=== PATIENT | female | born 1985 | race Caucasian/White ===

== ENCOUNTER → 2016-06-07 | Outpatient (CLI) | payer OTHER ==
--- NOTE | 2016-06-07 14:05 | XR ---
Left knee HISTORY: Left knee pain 4 views of the left knee No comparisons Bone mineralization, joint spaces and alignment are maintained. No evident joint effusion. IMPRESSION: No bone abnormalities evident.
== END | disposition home or self-care (01) ==
LOC: RADXRMAIN 11:46
PROVIDERS: ATTEND Psychiatry & Neurology Neurology
DX: M25.562 Pain in left knee (principal)

== ENCOUNTER → 2016-09-17 | Outpatient (CLI) | payer OTHER ==
--- NOTE | 2016-09-17 10:12 | US ---
EXAMINATION TYPE: US renals and bladder DATE OF EXAM: 09/17/2016 8:59 AM COMPARISON: CT abdomen pelvis dated 06 June 2014 CLINICAL HISTORY: R33.8 urinary retention. 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 EXAM MEASUREMENTS: Left Kidney: 11.5 x 6.0 x 5.2 cm Post Void Residual Volume: 11.9 mL The right kidney is atrophic. Cortical medullary differentiation is maintained within the left kidney . Kidney is morphologically normal. Right Kidney: unable to visualize any distinct renal tissue Left Kidney: no evidence of hydronephrosis or mass Bladder: appears wnl Bilateral Jets seen: no Normal Post Void Residual: yes There is no evidence for hydronephrosis at this point in time. No nephrolithiasis is seen. No lala s are identified. The urinary bladder is anechoic. Bilateral ureteral jets are seen. IMPRESSION: Atrophic right kidney. Normal post void residual bladder volume.
== END | disposition home or self-care (01) ==
LOC: RADUSMAIN 08:32
PROVIDERS: ATTEND Urology
DX: N26.1 Atrophy of kidney (terminal) (principal)
CPT/HCPCS: 76770

== ENCOUNTER 2017-04-08 21:23 | Emergency (ER) | payer OTHER ==
[2017-04-08 21:37] VITALS: RESP 18
[2017-04-08] MEDS ORDERED: KETOROLAC 60 MG/2 ML VIAL IM STA (21:54)
[2017-04-08] MEDS ORDERED: PROCHLORPERAZINE 10 MG TAB PO STA (21:54)
[2017-04-08] MEDS ORDERED: diphenhydrAMINE 50 MG CAP PO STA (21:54)
--- NOTE | 2017-04-08 22:00 | ED ---
General Adult HPI - General Chief complaint: ENT Stated complaint: Migraine/Dental Pain Time Seen by Provider: 04/08/17 21:45 Source: patient, RN notes reviewed Mode of arrival: ambulatory Limitations: no limitations - History of Present Illness Initial comments: Patient 31-year-old female who presents emergency room today with multiple complaints. Patient does admit to possible sinus infection. She states her last 2 weeks she's had increased congestion and rhinorrhea. Doesn't pressure in the sinuses patient also admits to a migraine headache has been off and on over the last week. States consistent with migraine headaches that she sat in the past with some photosensitivity and some nausea and vomitig. Patient also admits that over the last few days she's had some increased dental pain over tooth #11 and 12. Patient denies any recent fever, chills, shortness of breath, chest pain, back pain, abdominal pain, nausea or vomiting, numbness or tingling , dysuria or hematuria, constipation or diarrhea, headaches or visual changes, or any other complaints. - Related Data Home Medications Medication Instructions Recorded Confirmed Albuterol Inhaler [Ventolin Hfa 2 puff INHALATION DIRECTED PRN 08/16/1504/08 Inhaler] HYDROcodone/APAP 7.5-325MG [[place] 1 each PO Q8HR PRN 08/16/15 04/08/17 7.5-325] Butalb/APAP/Caff 50-325-40Mg 2 tab PO Q4H PRN 04/08/17 04/08/17 [Fioricet 50-325-40] Gabapentin [Neurontin] 300 mg PO TID 04/08/17 04/08/17 Verapamil HCl [Verapamil ER] 120 mg PO 04/08/17 Previous Rx's Medication Instructions Recorded Amoxicillin/Potassium Clav 1 each PO Q12HR #20 tab 04/08/17 [Augmentin 875-125 Tablet] Fluticasone Propionate [Flonase 1 - 2 spray EA NOSTRIL DAILY 5 04/08/17 Allergy Relief] Days ml Naproxen [Naprosyn] 500 mg PO BID #20 tablet 04/08/17 Allergies Allergy/AdvReac Type Severity Reaction Status Date / Time No Known Allergies Allergy Verified 08/16/15 10:00 Review of Systems ROS Statement: Those systems with pertinent positive or pertinent negative responses have been documented in the HPI. ROS Other: All systems not noted in ROS Statement are negative. Past Medical History Past Medical History: Fibromyalgia, Hyperlipidemia, Osteoarthritis (OA) Additional Past Medical History / Comment(s): MIGRAINES, LOWER BACK, NECK & SHOULDER PAIN-degenerative disk, bulging dis, DERMAL PIERCING LEFT CHEEK. 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) History of Any Multi-Drug Resistant Organisms: None Reported Past Surgical History: Back Surgery, Hernia Repair, Tubal Ligation Additional Past Surgical History / Comment(s): D & C, UMBILICAL HERNIA REPAIR, Past Anesthesia/Blood Transfusion Reactions: Motion Sickness Past Psychological History: Anxiety, Depression Smoking Status: Current every day smoker Past Alcohol Use History: None Reported Past Drug Use History: None Reported - Past Family History Mother Family Medical History: No Reported History General Exam - General Exam Comments Initial Comments: General: The patient is awake and alert, in no distress, and does not appear acutely ill. Eye: Pupils are equal, round and reactive to light, extra-ocular movements are intact. No nystagmus. There is normal conjunctiva bilaterally. No signs of icterus. Ears, nose, mouth and throat: There are moist mucous membranes and no oral lesions. patient does have dental fractures of the gumline of tooth #11 and 12. There appears to be a small abscess forming above the gumline and serial. Locally tender. No fluctuant area to drain. Uvula midline patient swallows without any difficulty. Patient does have tenderness over the maxillary sinuses greater on the left than the right. Neck: The neck is supple, there is no tenderness or JVD. Cardiovascular: There is a regular rate and rhythm. No murmur, rub or gallop is appreciated. Respiratory: Lungs are clear to auscultation, respirations are non-labored, breath sounds are equal. No wheezes, stridor, rales, or rhonchi. Musculoskeletal: Normal ROM, no tenderness. Strength 5/5. Sensation intact. Pulses equal bilaterally 2+. Neurological: A&O x 3. CN II-XII intact, There are no obvious motor or sensory deficits. Coordination appears grossly intact. Speech is normal. Skin: Skin is warm and dry and no rashes or lesions are noted. Psychiatric: Cooperative, appropriate mood & affect, normal judgment. Limitations: no limitations Course Vital Signs 04/08/17 21:33 Temperature 98.7 F Pulse Rate 72 Respiratory 18 Rate Blood Pressure 137/74 O2 Sat by Pulse 98 Oximetry Medical Decision Making - Medical Decision Making options were discussed with patient about IV medications for her migraine. She states she just wants to get out of here as soon as possible. She states she is okay with taking by mouth meds. Patient will be given Compazine, Benadryl and a shot of Toradol for her migraine headache started on antibiotics of Augmentin to cover for her sinusitis along with dental abscess. Advised to follow-up the family doctor and dentist this coming week. Advised return for any other concerns. Disposition Clinical Impression: Acute sinusitis, Migraine, Dental abscess Disposition: HOME SELF-CARE Condition: Good Instructions: Dental Abscess (ED) Additional Instructions: Please use medication as discussed. Please follow-up with dentist/family doctor in the next 2-5 days. Please return to emergency room if the symptoms increase or worsen or for any other concerns. Prescriptions: Amoxicillin/Potassium Clav [Augmentin 875-125 Tablet] 1 each PO Q12HR #20 tab Fluticasone Propionate [Flonase Allergy Relief] 1 - 2 spray EA NOSTRIL DAILY 5 Days ml Naproxen [Naprosyn] 500 mg PO BID #20 tablet Referrals: Jorge Salazar MD [Primary Care Provider] - 1-2 days Time of Disposition: 22:00
[2017-04-08 22:30] VITALS: BP 112/68; PULSE 84; TEMP 98.2
== END 2017-04-08 22:26 | disposition home or self-care (01) ==
LOC: EC 21:23
DX: G43.909 Migraine, unspecified, not intractable, without status migrainosus (principal); J01.90 Acute sinusitis, unspecified; K04.7 Periapical abscess without sinus; M79.7 Fibromyalgia; F17.200 Nicotine dependence, unspecified, uncomplicated; Z79.899 Other long term (current) drug therapy
CPT/HCPCS: 99283; 96372; S0183; J1885

== ENCOUNTER 2017-09-27 15:49 | Inpatient (IN) | payer OTHER ==
[2017-09-27] MEDS ORDERED: ATROPINE SULFATE 0.1 MG/ML 10ML SYRINGE IV STA ×2 (16:18→16:29)
[2017-09-27] MEDS ORDERED: CALCIUM CHLORIDE 100 MG/ML 10 ML SYRINGE IVP STA ×2 (16:18→16:32)
--- NOTE | 2017-09-27 16:22 | ED ---
General Adult HPI - General Chief complaint: Psychiatric Symptoms Stated complaint: Overdose Time Seen by Provider: 09/27/17 16:08 Source: patient, RN notes reviewed Mode of arrival: wheelchair Limitations: no limitations - History of Present Illness Initial comments: Patient is a 31-year-old female presenting to the emergency department during overdose. Patient does admit to taking 20-30 of her verapamil. Patient took 20 or less of her gabapentin. Patient may have also taken a few of her muscle relaxers. Patient is drowsy and admits to feeling drowsy. Patient admits to self harm and suicide attempt. Patient denies alcohol or other street drugs. Patient does have a previous history of depression. Patient denies any physical complaints at this time. Patient is drowsy and provides limited history. - Related Data Home Medications Medication Instructions Recorded Confirmed Albuterol Inhaler [Ventolin Hfa 2 puff INHALATION RT-Q6H PRN 08/16/15 04/08/17 Inhaler] HYDROcodone/APAP 7.5-325MG [[place] 1 tab PO Q8HR PRN 08/16/15 04/08/17 7.5-325] ALPRAZolam [Xanax] 1 mg PO DAILY PRN 04/08/17 04/08/17 Butalb/APAP/Caff 50-325-40Mg 2 tab PO Q4H PRN 04/08/17 04/08/17 [Fioricet 50-325-40] Citalopram Hydrobromide 20 mg PO DAILY 04/08/17 04/08/17 [Citalopram HBr] Gabapentin [Neurontin] 300 mg PO TID 04/08/17 04/08/17 Verapamil HCl [Verapamil ER] 120 mg PO DAILY 04/08/17 04/08/17 Previous Rx's Medication Instructions Recorded Amoxicillin/Potassium Clav 1 each PO Q12HR #20 tab 04/08/17 [Augmentin 875-125 Tablet] Fluticasone Propionate [Flonase 1 - 2 spray EA NOSTRIL DAILY 5 04/08/17 Allergy Relief] Days ml Naproxen [Naprosyn] 500 mg PO BID #20 tablet 04/08/17 Allergies Allergy/AdvReac Type Severity Reaction Status Date / Time No Known Allergies Allergy Verified 09/27/17 15:57 Review of Systems ROS Statement: Those systems with pertinent positive or pertinent negative responses have been documented in the HPI. ROS Other: All systems not noted in ROS Statement are negative. Constitutional: Denies: fever Eyes: Denies: eye pain ENT: Denies: ear pain Respiratory: Denies: cough Cardiovascular: Denies: chest pain Endocrine: Denies: fatigue Gastrointestinal: Denies: abdominal pain Genitourinary: Denies: dysuria Musculoskeletal: Denies: back pain Skin: Denies: rash Neurological: Denies: headache Psychiatric: Reports: depression, suicidal thoughts Past Medical History Past Medical History: Fibromyalgia, Hyperlipidemia, Osteoarthritis (OA) Additional Past Medical History / Comment(s): MIGRAINES, LOWER BACK, NECK & SHOULDER PAIN-degenerative disk, bulging dis, DERMAL PIERCING LEFT CHEEK. 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) History of Any Multi-Drug Resistant Organisms: None Reported Past Surgical History: Back Surgery, Hernia Repair, Tubal Ligation Additional Past Surgical History / Comment(s): D & C, UMBILICAL HERNIA REPAIR, Past Anesthesia/Blood Transfusion Reactions: Motion Sickness Past Psychological History: Anxiety, Depression Smoking Status: Current every day smoker Past Alcohol Use History: None Reported Past Drug Use History: None Reported - Past Family History Mother Family Medical History: No Reported History General Exam Limitations: no limitations General appearance: other (Drowsy but arousable to voice) Head exam: Present: atraumatic Eye exam: Present: normal appearance, PERRL ENT exam: Present: normal oropharynx Neck exam: Present: normal inspection Respiratory exam: Present: normal lung sounds bilaterally Cardiovascular Exam: Present: bradycardia GI/Abdominal exam: Present: soft. Absent: tenderness Extremities exam: Present: normal inspection Neurological exam: Present: alert. Absent: motor sensory deficit Psychiatric exam: Present: depressed Skin exam: Present: normal color Course Vital Signs 09/27/17 09/27/17 09/27/17 15:54 16:53 17:35 Temperature 98.1 F Pulse Rate 53 L 71 56 L Respiratory 18 12 18 Rate Blood Pressure 138/100 156/100 114/75 O2 Sat by Pulse 100 100 93 L Oximetry - Reevaluation(s) Reevaluation #1: 09/27/17 16:37 Patient has had heart rate go as low as 38. Poison control was contacted who does agree with high-dose insulin therapy. This has been initiated. 05/19/18 17:12 Patient became more drowsy and no gag present. Patient transferred to room 19 and intubated. 09/27/17 17:43 Vital signs stable. Case was discussed with Dr. dc, who will admit for hospital call. He does request cardiology consult and this will be placed. Case also discussed with Dr. Hyatt, who will consult for critical care. Procedures - Intubation Time Out Performed: Yes Sedative: Versed Paralytic: Succinylcholine Mg Given: 80 Laryngoscope: Duarte Size: 3 ET Tube Size: 7.5 Tube Placement Confirmation: visualized tube passing through cords, equal breath sounds bilaterally, confirmation by capnometry Patient Tolerated Procedure: well, no complications Medical Decision Making - Lab Data Result diagrams: 09/27/17 16:10 09/27/17 16:10 Lab Results 09/27/17 09/27/17 09/27/17 Range/Units 16:10 16:10 16:10 WBC 6.9 (3.8-10.6) k/uL RBC 4.20 (3.80-5.40) m/uL Hgb 13.1 (11.4-16.0) gm/dL Hct 38.8 (34.0-46.0) % MCV 92.3 (80.0-100.0) fL MCH 31.2 (25.0-35.0) pg MCHC 33.8 (31.0-37.0) g/dL RDW 13.0 (11.5-15.5) % Plt Count 259 (150-450) k/uL Neutrophils % 60 % Lymphocytes % 31 % Monocytes % 6 % Eosinophils % 1 % Basophils % 0 % Neutrophils # 4.1 (1.3-7.7) k/uL Lymphocytes # 2.1 (1.0-4.8) k/uL Monocytes # 0.4 (0-1.0) k/uL Eosinophils # 0.1 (0-0.7) k/uL Basophils # 0.0 (0-0.2) k/uL PT (9.0-12.0) sec INR (<1.2) Sample Site ABG pH (7.35-7.45) ABG pCO2 (35-45) mmHg ABG pO2 (83-108) mmHg ABG HCO3 (21-25) mmol/L ABG Total CO2 (19-24) mmol/L ABG O2 Saturation (94-97) % ABG Base Excess mmol/L Alejandro Test FiO2 % Sodium 143 (137-145) mmol/L Potassium 4.1 (3.5-5.1) mmol/L Chloride 106 (98-107) mmol/L Carbon Dioxide 24 (22-30) mmol/L Anion Gap 13 mmol/L BUN 12 (7-17) mg/dL Creatinine 0.99 (0.52-1.04) mg/dL Est GFR (CKD-EPI)AfAm 87 (>60 ml/min/1.73 sqM) Est GFR (CKD-EPI)NonAf 75 (>60 ml/min/1.73 sqM) Glucose 163 H (74-99) mg/dL POC Glucose (mg/dL) (75-99) mg/dL POC Glu Director Employment ID Calcium 9.7 (8.4-10.2) mg/dL Total Bilirubin 0.4 (0.2-1.3) mg/dL AST 23 (14-36) U/L ALT 27 (9-52) U/L Alkaline Phosphatase 49 (38-126) U/L Total Creatine Kinase 44 (30-135) U/L CK-MB (CK-2) <0.2 (0.0-2.4) ng/mL CK-MB (CK-2) Rel Index Troponin I <0.012 (0.000-0.034) ng/mL Total Protein 7.0 (6.3-8.2) g/dL Albumin 4.4 (3.5-5.0) g/dL Salicylates <1.0 mg/dL Acetaminophen <10.0 ug/mL Serum Alcohol <10 mg/dL 09/27/17 09/27/17 09/27/17 Range/Units 16:10 16:23 16:50 WBC (3.8-10.6) k/uL RBC (3.80-5.40) m/uL Hgb (11.4-16.0) gm/dL Hct (34.0-46.0) % MCV (80.0-100.0) fL MCH (25.0-35.0) pg MCHC (31.0-37.0) g/dL RDW (11.5-15.5) % Plt Count (150-450) k/uL Neutrophils % % Lymphocytes % % Monocytes % % Eosinophils % % Basophils % % Neutrophils # (1.3-7.7) k/uL Lymphocytes # (1.0-4.8) k/uL Monocytes # (0-1.0) k/uL Eosinophils # (0-0.7) k/uL Basophils # (0-0.2) k/uL PT 10.1 (9.0-12.0) sec INR 1.0 (<1.2) Sample Site Left Radial ABG pH 7.38 (7.35-7.45) ABG pCO2 41 (35-45) mmHg ABG pO2 336 H (83-108) mmHg ABG HCO3 24 (21-25) mmol/L ABG Total CO2 25 H (19-24) mmol/L ABG O2 Saturation 99.5 H (94-97) % ABG Base Excess -1.2 mmol/L Alejandro Test Yes FiO2 100 % Sodium (137-145) mmol/L Potassium (3.5-5.1) mmol/L Chloride (98-107) mmol/L Carbon Dioxide (22-30) mmol/L Anion Gap mmol/L BUN (7-17) mg/dL Creatinine (0.52-1.04) mg/dL Est GFR (CKD-EPI)AfAm (>60 ml/min/1.73 sqM) Est GFR (CKD-EPI)NonAf (>60 ml/min/1.73 sqM) Glucose (74-99) mg/dL POC Glucose (mg/dL) 155 H (75-99) mg/dL POC Glu Director Employment ID [employer], Anisha Calcium (8.4-10.2) mg/dL Total Bilirubin (0.2-1.3) mg/dL AST (14-36) U/L ALT (9-52) U/L Alkaline Phosphatase (38-126) U/L Total Creatine Kinase (30-135) U/L CK-MB (CK-2) (0.0-2.4) ng/mL CK-MB (CK-2) Rel Index Troponin I (0.000-0.034) ng/mL Total Protein (6.3-8.2) g/dL Albumin (3.5-5.0) g/dL Salicylates mg/dL Acetaminophen ug/mL Serum Alcohol mg/dL 09/27/17 Range/Units 17:04 WBC (3.8-10.6) k/uL RBC (3.80-5.40) m/uL Hgb (11.4-16.0) gm/dL Hct (34.0-46.0) % MCV (80.0-100.0) fL MCH (25.0-35.0) pg MCHC (31.0-37.0) g/dL RDW (11.5-15.5) % Plt Count (150-450) k/uL Neutrophils % % Lymphocytes % % Monocytes % % Eosinophils % % Basophils % % Neutrophils # (1.3-7.7) k/uL Lymphocytes # (1.0-4.8) k/uL Monocytes # (0-1.0) k/uL Eosinophils # (0-0.7) k/uL Basophils # (0-0.2) k/uL PT (9.0-12.0) sec INR (<1.2) Sample Site ABG pH (7.35-7.45) ABG pCO2 (35-45) mmHg ABG pO2 (83-108) mmHg ABG HCO3 (21-25) mmol/L ABG Total CO2 (19-24) mmol/L ABG O2 Saturation (94-97) % ABG Base Excess mmol/L Alejandro Test FiO2 % Sodium (137-145) mmol/L Potassium (3.5-5.1) mmol/L Chloride (98-107) mmol/L Carbon Dioxide (22-30) mmol/L Anion Gap mmol/L BUN (7-17) mg/dL Creatinine (0.52-1.04) mg/dL Est GFR (CKD-EPI)AfAm (>60 ml/min/1.73 sqM) Est GFR (CKD-EPI)NonAf (>60 ml/min/1.73 sqM) Glucose (74-99) mg/dL POC Glucose (mg/dL) 272 H (75-99) mg/dL POC Glu Director Employment ID Jessica, Anisha Calcium (8.4-10.2) mg/dL Total Bilirubin (0.2-1.3) mg/dL AST (14-36) U/L ALT (9-52) U/L Alkaline Phosphatase (38-126) U/L Total Creatine Kinase (30-135) U/L CK-MB (CK-2) (0.0-2.4) ng/mL CK-MB (CK-2) Rel Index Troponin I (0.000-0.034) ng/mL Total Protein (6.3-8.2) g/dL Albumin (3.5-5.0) g/dL Salicylates mg/dL Acetaminophen ug/mL Serum Alcohol mg/dL Critical Care Time Critical Care Time: Yes Total Critical Care Time: 45 Disposition Clinical Impression: Calcium channel ranjana overdose, Suicidal ideation, Overdose Disposition: ADMITTED IP TO THIS [facility] Condition: Critical Is patient prescribed a controlled substance at d/c from ED?: No Referrals: None,Stated [Primary Care Provider] - 1-2 days Decision Time: 17:43
[2017-09-27 16:26] LABS: Glucose,Whole Blood 155 mg/dL (75-99)
[2017-09-27] MEDS ORDERED: GLUCAGON 1 MG/ML VIAL IVP STA ×2 (16:29)
[2017-09-27 16:31] LABS: Basophils % (A) 0 %; Eosinophils # (A) 0.1 k/uL (0-0.7); Eosinophils % (A) 1 %; HCT 38.8 % (34.0-46.0); HGB 13.1 gm/dL (11.4-16.0); Lymphocytes # (A) 2.1 k/uL (1.0-4.8); Lymphocytes % (A) 31 %; MCH 31.2 pg (25.0-35.0); MCHC 33.8 g/dL (31.0-37.0); MCV 92.3 fL (80.0-100.0); Mean Platelet Volume 8.9; Monocytes # (A) 0.4 k/uL (0-1.0); Monocytes % (A) 6 %; Neutrophils # (A) 4.1 k/uL (1.3-7.7); Neutrophils % (A) 60 %; Platelet Count 259 k/uL (150-450); WBC 6.9 k/uL (3.8-10.6)
[2017-09-27] MEDS ORDERED: INSULIN REGULAR 100 UNIT/ML VIAL IV ONE ×3 (16:32→22:37)
[2017-09-27] MEDS ORDERED: MIDAZOLAM (PF) 1 MG/ML 5 ML VIAL IV STA (16:33)
[2017-09-27] MEDS ORDERED: SUCCINYLCHOLINE CHLORIDE VIAL 200 MG/10 ML VIAL IV STA (16:33)
[2017-09-27 16:37] LABS: Prothrombin Time 10.1 sec (9.0-12.0)
[2017-09-27 16:45] LABS: ALT 27 U/L (9-52); AST 23 U/L (14-36); Acetaminophen <10.0 ug/mL; Albumin 4.4 g/dL (3.5-5.0); Alcohol <10 mg/dL; Alkaline Phosphatase 49 U/L (38-126); Anion Gap 13 mmol/L; Blood Urea Nitrogen 12 mg/dL (7-17); Calcium 9.7 mg/dL (8.4-10.2); Carbon Dioxide 24 mmol/L (22-30); Chloride 106 mmol/L (98-107); Creatine Kinase 44 U/L (30-135); Glucose 163 mg/dL (74-99); Potassium 4.1 mmol/L (3.5-5.1); Salicylate <1.0 mg/dL; Sodium 143 mmol/L (137-145); Total Bilirubin 0.4 mg/dL (0.2-1.3)
[2017-09-27] MEDS ORDERED: DEXTROSE 10% IN WATER 1,000 ML IV SCH (16:45)
[2017-09-27] MEDS ORDERED: INSULIN REGULAR 100 UNIT in SODIUM CHLORIDE 0.9% 100 ML IV SCH (16:45)
[2017-09-27] MEDS: DEXTROSE 50%-WATER 50 ML SYRINGE IVP STA ×2 (16:46→18:04)
[2017-09-27 16:53] LABS: ABG Base Excess -1.2 mmol/L; ABG HCO3 24 mmol/L (21-25); ABG Oxygen Saturation 99.5 % (94-97); ABG PCO2 41 mmHg (35-45); ABG PH 7.38 (7.35-7.45); ABG PO2 336 mmHg (83-108); ABG TCO2 25 mmol/L (19-24)
[2017-09-27 16:56] LABS: Creatine Kinase MB <0.2 ng/mL (0.0-2.4); Troponin I <0.012 ng/mL (0.000-0.034)
[2017-09-27] MEDS ORDERED: PROPOFOL 1,000 MG in EMPTY BAG 1 BAG IV ONE (17:16)
[2017-09-27] MEDS ORDERED: LORazepam 2 MG/ML INJ IV PRN ×2 (17:20)
[2017-09-27 17:24] LABS: Glucose,Whole Blood 272 mg/dL (75-99)
[2017-09-27] MEDS: PROPOFOL 1,000 MG in EMPTY BAG 1 BAG IV SCH ×2 (17:26→23:30)
[2017-09-27] MEDS ORDERED: NALOXONE 0.4 MG/ML 1 ML VIAL IV PRN ×2 (17:47→20:26)
[2017-09-27 17:50] LABS: Glucose,Whole Blood 162 mg/dL (75-99)
[2017-09-27 17:56] LABS: Amphetamine Screen,Urine Not Detected (NotDetected); Barbiturate Screen,Urine Detected (NotDetected); Benzodiazepines Screen,Urine Not Detected (NotDetected); Cocaine Screen,Urine Not Detected (NotDetected); Methadone Screen, Urine Not Detected (NotDetected); Opiate Screen,Urine Not Detected (NotDetected); Oxycodone Screen, Urine Not Detected (NotDetected); Phencyclidine Screen,Urine Not Detected (NotDetected); Tricyclic Antidepressant,Urine Not Detected (NotDetected); Urn Cannabinoid Scrn Not Detected (NotDetected)
[2017-09-27] MEDS ORDERED: LORazepam 2 MG/ML INJ IV STA (17:58)
--- NOTE | 2017-09-27 18:01 | ED ---
Medical Decision Making - Lab Data Result diagrams: 09/27/17 16:10 09/27/17 16:10 Lab Results 09/27/17 09/27/17 09/27/17 Range/Units 16:10 16:10 16:10 WBC 6.9 (3.8-10.6) k/uL RBC 4.20 (3.80-5.40) m/uL Hgb 13.1 (11.4-16.0) gm/dL Hct 38.8 (34.0-46.0) % MCV 92.3 (80.0-100.0) fL MCH 31.2 (25.0-35.0) pg MCHC 33.8 (31.0-37.0) g/dL RDW 13.0 (11.5-15.5) % Plt Count 259 (150-450) k/uL Neutrophils % 60 % Lymphocytes % 31 % Monocytes % 6 % Eosinophils % 1 % Basophils % 0 % Neutrophils # 4.1 (1.3-7.7) k/uL Lymphocytes # 2.1 (1.0-4.8) k/uL Monocytes # 0.4 (0-1.0) k/uL Eosinophils # 0.1 (0-0.7) k/uL Basophils # 0.0 (0-0.2) k/uL PT (9.0-12.0) sec INR (<1.2) Sample Site ABG pH (7.35-7.45) ABG pCO2 (35-45) mmHg ABG pO2 (83-108) mmHg ABG HCO3 (21-25) mmol/L ABG Total CO2 (19-24) mmol/L ABG O2 Saturation (94-97) % ABG Base Excess mmol/L Alejandro Test FiO2 % Sodium 143 (137-145) mmol/L Potassium 4.1 (3.5-5.1) mmol/L Chloride 106 (98-107) mmol/L Carbon Dioxide 24 (22-30) mmol/L Anion Gap 13 mmol/L BUN 12 (7-17) mg/dL Creatinine 0.99 (0.52-1.04) mg/dL Est GFR (CKD-EPI)AfAm 87 (>60 ml/min/1.73 sqM) Est GFR (CKD-EPI)NonAf 75 (>60 ml/min/1.73 sqM) Glucose 163 H (74-99) mg/dL POC Glucose (mg/dL) (75-99) mg/dL POC Glu Instructor Physical ID Calcium 9.7 (8.4-10.2) mg/dL Total Bilirubin 0.4 (0.2-1.3) mg/dL AST 23 (14-36) U/L ALT 27 (9-52) U/L Alkaline Phosphatase 49 (38-126) U/L Total Creatine Kinase 44 (30-135) U/L CK-MB (CK-2) <0.2 (0.0-2.4) ng/mL CK-MB (CK-2) Rel Index Troponin I <0.012 (0.000-0.034) ng/mL Total Protein 7.0 (6.3-8.2) g/dL Albumin 4.4 (3.5-5.0) g/dL Urine HCG, Qual (Not Detectd) Salicylates <1.0 mg/dL Acetaminophen <10.0 ug/mL Serum Alcohol <10 mg/dL 09/27/17 09/27/17 09/27/17 Range/Units 16:10 16:23 16:50 WBC (3.8-10.6) k/uL RBC (3.80-5.40) m/uL Hgb (11.4-16.0) gm/dL Hct (34.0-46.0) % MCV (80.0-100.0) fL MCH (25.0-35.0) pg MCHC (31.0-37.0) g/dL RDW (11.5-15.5) % Plt Count (150-450) k/uL Neutrophils % % Lymphocytes % % Monocytes % % Eosinophils % % Basophils % % Neutrophils # (1.3-7.7) k/uL Lymphocytes # (1.0-4.8) k/uL Monocytes # (0-1.0) k/uL Eosinophils # (0-0.7) k/uL Basophils # (0-0.2) k/uL PT 10.1 (9.0-12.0) sec INR 1.0 (<1.2) Sample Site Left Radial ABG pH 7.38 (7.35-7.45) ABG pCO2 41 (35-45) mmHg ABG pO2 336 H (83-108) mmHg ABG HCO3 24 (21-25) mmol/L ABG Total CO2 25 H (19-24) mmol/L ABG O2 Saturation 99.5 H (94-97) % ABG Base Excess -1.2 mmol/L Alejandro Test Yes FiO2 100 % Sodium (137-145) mmol/L Potassium (3.5-5.1) mmol/L Chloride (98-107) mmol/L Carbon Dioxide (22-30) mmol/L Anion Gap mmol/L BUN (7-17) mg/dL Creatinine (0.52-1.04) mg/dL Est GFR (CKD-EPI)AfAm (>60 ml/min/1.73 sqM) Est GFR (CKD-EPI)NonAf (>60 ml/min/1.73 sqM) Glucose (74-99) mg/dL POC Glucose (mg/dL) 155 H (75-99) mg/dL POC Glu Instructor Physical ID [facility] Anisha Calcium (8.4-10.2) mg/dL Total Bilirubin (0.2-1.3) mg/dL AST (14-36) U/L ALT (9-52) U/L Alkaline Phosphatase (38-126) U/L Total Creatine Kinase (30-135) U/L CK-MB (CK-2) (0.0-2.4) ng/mL CK-MB (CK-2) Rel Index Troponin I (0.000-0.034) ng/mL Total Protein (6.3-8.2) g/dL Albumin (3.5-5.0) g/dL Urine HCG, Qual (Not Detectd) Salicylates mg/dL Acetaminophen ug/mL Serum Alcohol mg/dL 09/27/17 09/27/17 09/27/17 Range/Units 17:04 17:18 17:30 WBC (3.8-10.6) k/uL RBC (3.80-5.40) m/uL Hgb (11.4-16.0) gm/dL Hct (34.0-46.0) % MCV (80.0-100.0) fL MCH (25.0-35.0) pg MCHC (31.0-37.0) g/dL RDW (11.5-15.5) % Plt Count (150-450) k/uL Neutrophils % % Lymphocytes % % Monocytes % % Eosinophils % % Basophils % % Neutrophils # (1.3-7.7) k/uL Lymphocytes # (1.0-4.8) k/uL Monocytes # (0-1.0) k/uL Eosinophils # (0-0.7) k/uL Basophils # (0-0.2) k/uL PT (9.0-12.0) sec INR (<1.2) Sample Site ABG pH (7.35-7.45) ABG pCO2 (35-45) mmHg ABG pO2 (83-108) mmHg ABG HCO3 (21-25) mmol/L ABG Total CO2 (19-24) mmol/L ABG O2 Saturation (94-97) % ABG Base Excess mmol/L Alejandro Test FiO2 % Sodium (137-145) mmol/L Potassium (3.5-5.1) mmol/L Chloride (98-107) mmol/L Carbon Dioxide (22-30) mmol/L Anion Gap mmol/L BUN (7-17) mg/dL Creatinine (0.52-1.04) mg/dL Est GFR (CKD-EPI)AfAm (>60 ml/min/1.73 sqM) Est GFR (CKD-EPI)NonAf (>60 ml/min/1.73 sqM) Glucose (74-99) mg/dL POC Glucose (mg/dL) 272 H 162 H (75-99) mg/dL POC Glu Instructor Physical ID Jessica, Rd Wong Calcium (8.4-10.2) mg/dL Total Bilirubin (0.2-1.3) mg/dL AST (14-36) U/L ALT (9-52) U/L Alkaline Phosphatase (38-126) U/L Total Creatine Kinase (30-135) U/L CK-MB (CK-2) (0.0-2.4) ng/mL CK-MB (CK-2) Rel Index Troponin I (0.000-0.034) ng/mL Total Protein (6.3-8.2) g/dL Albumin (3.5-5.0) g/dL Urine HCG, Qual Not Detected (Not Detectd) Salicylates mg/dL Acetaminophen ug/mL Serum Alcohol mg/dL - Radiology Data Interpreted by me: Chest x-ray shows good endotracheal tube placement. Otherwise no acute abnormality. Disposition Clinical Impression: Calcium channel ranjana overdose, Suicidal ideation, Overdose Disposition: ADMITTED IP TO THIS [facility] Condition: Critical Referrals: None,Stated [Primary Care Provider] - 1-2 days Procedures - Restraint - Face to Face Restraint Occurrence 1 Patient's Immediate Situation: Endangers self safety Patient's Reaction to the Intervention: Appropriate Patient's Medical & Behavioral Condition: Drowsy Need to Continue or Terminate Restraint or Seclusion: Continue Face to Face Eval of Restraint Date: 09/27/17 Face to Face Eval of Restraint Time: 18:00
--- NOTE | 2017-09-27 18:10 | XR ---
EXAMINATION TYPE: XR chest 1V portable DATE OF EXAM: 09/27/2017 COMPARISON: Prior chest x-ray 03/08/2015 HISTORY: Intubated TECHNIQUE: Single frontal view of the chest is obtained. FINDINGS: Patient is rotated. There are overlying cardiac leads. Endotracheal tube is been placed in the interval and is overlying the tracheal air column. NG tube shows the distal tip at the level of t he hemidiaphragm. There is no focal air space opacity, pleural effusion, or pneumothorax seen. The c ardiac silhouette size is within normal limits. The osseous structures are intact. IMPRESSION: Interval intubation. Side-port of the NG tube is above the level of the gastroesophageal junction.
[2017-09-27 18:24] LABS: Glucose,Whole Blood 98 mg/dL (75-99)
[2017-09-27 18:24] LABS: Glucose,Whole Blood 62 mg/dL (75-99)
[2017-09-27 18:38] LABS: Glucose,Whole Blood 51 mg/dL (75-99)
[2017-09-27] MEDS ORDERED: DEXTROSE 50%-WATER 50 ML SYRINGE IVP STA ×2 (18:40→19:40)
[2017-09-27 18:56] LABS: Glucose,Whole Blood 180 mg/dL (75-99)
[2017-09-27 19:03] LABS: Glucose,Whole Blood 138 mg/dL (75-99)
[2017-09-27 19:22] LABS: Glucose,Whole Blood 89 mg/dL (75-99)
[2017-09-27 19:30] LABS: Glucose,Whole Blood 82 mg/dL (75-99)
[2017-09-27] MEDS ORDERED: DOPamine DRIP 800 MG in DEXTROSE/WATER 1 500ML.BAG IV SCH (19:30)
[2017-09-27 19:47] LABS: Glucose,Whole Blood 80 mg/dL (75-99)
[2017-09-27] MEDS: SODIUM CHLORIDE 0.9% IV SCH (19:55)
[2017-09-27] MEDS: INSULIN REGULAR IV SCH (19:55)
[2017-09-27 20:11] LABS: Glucose,Whole Blood 70 mg/dL (75-99)
[2017-09-27] MEDS ORDERED: WATER FOR INJECTION IV SCH (20:15)
[2017-09-27] MEDS ORDERED: WATER IV SCH (20:15)
[2017-09-27] MEDS ORDERED: STERILE IV SCH (20:15)
[2017-09-27] MEDS ORDERED: DEXTROSE 50% IV SCH (20:15)
[2017-09-27 20:17] LABS: Glucose,Whole Blood 323 mg/dL (75-99)
[2017-09-27 20:33] LABS: Glucose,Whole Blood 246 mg/dL (75-99)
[2017-09-27 20:47] LABS: Glucose,Whole Blood 208 mg/dL (75-99)
[2017-09-27 21:03] LABS: Glucose,Whole Blood 184 mg/dL (75-99)
[2017-09-27] MEDS: CHLORHEXIDINE GLUCONATE 15 ML CUP MUCOUS MEM SCH (21:04)
[2017-09-27 21:30] LABS: Glucose,Whole Blood 119 mg/dL (75-99)
[2017-09-27] MEDS ORDERED: SODIUM CHLORIDE 0.9% 1,000 ML IV ONE (21:40)
[2017-09-27 22:03] LABS: Glucose,Whole Blood 106 mg/dL (75-99)
[2017-09-27 22:03] LABS: Glucose,Whole Blood 106 mg/dL (75-99)
[2017-09-27 22:49] LABS: Glucose,Whole Blood 86 mg/dL (75-99)
[2017-09-27 22:49] LABS: Glucose,Whole Blood 93 mg/dL (75-99)
[2017-09-27] MEDS ORDERED: Magnesium Replacement Protocol 1 EACH MISC MISCELLANE PRN (22:53)
[2017-09-27] MEDS: STERILE IV SCH ×2 (22:55)
[2017-09-27] MEDS: WATER FOR INJECTION IV SCH ×2 (22:55)
[2017-09-27] MEDS: [UNRECOGNIZED DRUG - OTHER] IV SCH ×2 (22:55)
[2017-09-27] MEDS: MAGNESIUM SULFATE-D5W PMX 1 GM in DEXTROSE/WATER 1 100ML.BAG IVPB SCH ×2 (22:59→23:19)
[2017-09-27] MEDS ORDERED: NOREPINEPHRIN 4 MG-0.9% NS PMX 4 MG/250 ML ML IV SCH (23:00)
[2017-09-27 23:03] LABS: Glucose,Whole Blood 108 mg/dL (75-99)
[2017-09-27 23:29] LABS: Glucose,Whole Blood 164 mg/dL (75-99)
--- NOTE | 2017-09-28 00:01 | HP ---
HISTORY AND PHYSICAL DATE OF ADMISSION: 09/27/2017. DATE OF SERVICE: 09/27/2017 PRESENTING COMPLAINT: Overdose. HISTORY OF PRESENTING COMPLAINT: This is a 31-year-old patient. History is obtained through the ER physician and the nurse in the ICU. The patient presented to the ER following an overdose. The patient apparently had taken 20-30 mg of verapamil extended release, about 20 or so, on top of Neurontin, gabapentin and few of her muscle relaxers. The patient was drowsy in the ER. The patient did admit to self-harm and suicide attempt. The patient denies any alcohol or street drugs, has a known history of depression. The patient became more lethargic in the ER and had to be intubated. The patient is currently in the ICU. The patient's heart rate was in the 40s, was given 2 doses of atropine in the ER and then put on a dopamine drip. Per the Poison Control, patient also put on insulin drip 1 mg/kg and a dextrose drip. The patient also received 2 units of calcium chloride in the ER and is also on propofol. Currently on the ventilator with FiO2 50 and a PEEP of 5. The patient's other chronic stable medical conditions reported were fibromyalgia, hyperlipidemia, some osteoarthritis and a unilateral kidney, anxiety, depression. REVIEW OF SYSTEMS: Patient intubated. PAST MEDICAL HISTORY: Fibromyalgia, hyperlipidemia, lumbar osteoarthritis, unilateral kidney, anxiety, depression. PAST SURGICAL HISTORY: Back surgery, hernia repair, tubal ligation, umbilical hernia repair. SOCIAL HISTORY: I was told she has 7 children, smokes about half a pack a day for 15 years. No alcohol. FAMILY HISTORY: Cannot obtain. Patient intubated. HOME MEDICATIONS: 1. Possibly verapamil ER 120 mg a day. 2. Naproxen 500 mg b.i.d. 3. Bowman 7.5 one tab q.8h p.r.n. 4. Neurontin 300 mg t.i.d. 5. Flonase. 6. Celexa 20 mg daily. 7. Fioricet 2 tablets q.4 p.r.n. 8. Augmentin 875 one tablet q.12. 9. Ventolin HFA 2 puffs every 6 hours p.r.n. 10.Xanax 1 mg p.o. daily p.r.n. ALLERGIES: None. EXAMINATION: Afebrile, pulse 56, respirations 18, blood pressure 104/67, pulse ox 98%. GENERAL APPEARANCE: Average build, lying in bed, intubated. EYES: Pupils equal. Conjunctivae are normal. HEENT: External nose and ears normal. Endotracheal tube in place. NECK: JVD unable to assess. Mass not palpable. RESPIRATORY: Effort normal. Lungs are clear. CARDIOVASCULAR: First and second sounds normal. No edema. ABDOMEN: Soft, nontender. Liver and spleen not palpable. LYMPHATIC: No lymph node palpable in neck or axillae. PSYCHIATRY: Unable to assess. NEUROLOGICAL: Pupils are equal, . Plantars are downgoing. The patient is spontaneously moving about. INVESTIGATIONS: White count 6.9, hemoglobin 13.1. Blood gas showed pH of 7.38. Potassium 4.1, BUN and creatinine are normal. Troponin negative. Serum alcohol less than 10. Acetaminophen less than 10. Salicylate less than 0 1. Urine HCG negative. ASSESSMENT: 1. Acute overdose of at least 20-30 verapamil, Neurontin, muscle relaxant. 2. Severe bradycardia from calcium channel blockers with bigeminy. 3. Unilateral kidney. 4. Anxiety and depression, not otherwise specified. 5. Suicide attempt. 6. Acute metabolic encephalopathy from above. 7. Acute respiratory failure from central respiratory depression from medications requiring ventilator assistance. PLAN: Patient is on the ventilator on propofol, dopamine drip, insulin drip, D25 per Poison Control. Consultation to Psychiatry under critical care was done. supervisor fur floor worker will be involved. A close eye will be kept. MMODL / IJN: [id number] /
[2017-09-28 00:03] LABS: Glucose,Whole Blood 158 mg/dL (75-99)
[2017-09-28 00:31] LABS: Glucose,Whole Blood 190 mg/dL (75-99)
[2017-09-28 00:58] LABS: Glucose,Whole Blood 157 mg/dL (75-99)
[2017-09-28 01:37] LABS: Glucose,Whole Blood 197 mg/dL (75-99)
[2017-09-28 02:05] LABS: Glucose,Whole Blood 166 mg/dL (75-99)
[2017-09-28 02:05] LABS: Appearance,Urine Clear (Clear); Bilirubin,Urine Negative (Negative); Blood,Urine Negative (Negative); Color,Urine Colorless; Glucose,Urine (UA) Negative (Negative); Ketones,Urine Negative (Negative); Leukocyte Esterase,Urine Negative (Negative); Nitrite,Urine Negative (Negative); Protein,Urine Negative (Negative); Specific Gravity,Urine 1.002 (1.001-1.035); Urobilinogen,Urine <2.0 mg/dL (<2.0)
[2017-09-28] MEDS: STERILE IV SCH ×8 (02:25→22:38)
[2017-09-28] MEDS: [UNRECOGNIZED DRUG - OTHER] IV SCH ×2 (02:25)
[2017-09-28] MEDS: WATER FOR INJECTION IV SCH ×8 (02:25→22:38)
[2017-09-28 02:30] LABS: Glucose,Whole Blood 182 mg/dL (75-99)
[2017-09-28 03:01] LABS: Glucose,Whole Blood 244 mg/dL (75-99)
[2017-09-28] MEDS: DEXTROSE 50% IV SCH ×6 (03:25→22:38)
[2017-09-28] MEDS: WATER IV SCH ×6 (03:25→22:38)
[2017-09-28 03:37] LABS: Glucose,Whole Blood 232 mg/dL (75-99)
[2017-09-28 04:20] LABS: Glucose,Whole Blood 245 mg/dL (75-99)
[2017-09-28 04:38] LABS: Glucose,Whole Blood 206 mg/dL (75-99)
[2017-09-28 05:22] LABS: Glucose,Whole Blood 220 mg/dL (75-99)
[2017-09-28] MEDS: SODIUM CHLORIDE 0.9% IV SCH ×3 (05:28→17:04)
[2017-09-28] MEDS: INSULIN REGULAR IV SCH ×3 (05:28→17:04)
[2017-09-28 05:59] LABS: Glucose,Whole Blood 155 mg/dL (75-99)
[2017-09-28 06:17] LABS: Glucose,Whole Blood 142 mg/dL (75-99)
[2017-09-28 06:30] LABS: Glucose,Whole Blood 130 mg/dL (75-99)
[2017-09-28 06:49] LABS: Glucose,Whole Blood 127 mg/dL (75-99)
[2017-09-28 06:56] LABS: Basophils % (A) 0 %; Eosinophils % (A) 0 %; HCT 36.8 % (34.0-46.0); Lymphocytes % (A) 9 %; MCHC 32.5 g/dL (31.0-37.0); MCV 95.2 fL (80.0-100.0); Mean Platelet Volume 8.4; Monocytes # (A) 0.6 k/uL (0-1.0); Monocytes % (A) 6 %; Neutrophils % (A) 84 %; Platelet Count 200 k/uL (150-450); RBC 3.86 m/uL (3.80-5.40); RDW 12.9 % (11.5-15.5); WBC 10.7 k/uL (3.8-10.6)
[2017-09-28 06:59] LABS: Glucose,Whole Blood 134 mg/dL (75-99)
[2017-09-28 07:13] LABS: ALT 23 U/L (9-52); AST 15 U/L (14-36); Albumin 3.3 g/dL (3.5-5.0); Alkaline Phosphatase 45 U/L (38-126); Anion Gap 12 mmol/L; Blood Urea Nitrogen 9 mg/dL (7-17); Calcium 10.6 mg/dL (8.4-10.2); Carbon Dioxide 18 mmol/L (22-30); Chloride 116 mmol/L (98-107); Glucose 133 mg/dL (74-99); Magnesium 1.9 mg/dL (1.6-2.3); Sodium 146 mmol/L (137-145); Total Bilirubin 0.2 mg/dL (0.2-1.3); Total Protein 5.7 g/dL (6.3-8.2)
[2017-09-28 07:18] LABS: Potassium 2.7 mmol/L (3.5-5.1)
[2017-09-28 07:19] LABS: Phosphorus 0.6 mg/dL (2.5-4.5)
[2017-09-28 07:36] LABS: Ionized Calcium 6.4 mg/dL (4.5-5.3)
--- NOTE | 2017-09-28 07:40 | XR ---
EXAMINATION TYPE: XR chest 1V portable DATE OF EXAM: 09/28/2017 COMPARISON: Prior chest x-ray 09/27/2017 HISTORY: Intubated TECHNIQUE: Single frontal view of the chest is obtained. FINDINGS: Endotracheal tube, NG tube are overlying appropriate positions, the NG tube has been advan desiree slightly, side-port remains above the level of the gastroesophageal junction. There is no evident pneumothorax or pleural effusion. Overlying cardiac leads are present. Patchy basilar density suspec jenniffer in the left lower lobe. Heart size is stable. IMPRESSION: NG tube has been repositioned however the side port remains above the level of the gastr oesophageal junction. Probable left lower lobe atelectasis. Correlate to exclude pneumonia. Follow-up recommended.
[2017-09-28 07:43] LABS: Glucose,Whole Blood 135 mg/dL (75-99)
[2017-09-28 07:52] LABS: ABG Base Excess -6.5 mmol/L; ABG HCO3 19 mmol/L (21-25); ABG Oxygen Saturation 98.6 % (94-97); ABG PCO2 35 mmHg (35-45); ABG PH 7.34 (7.35-7.45); ABG PO2 149 mmHg (83-108); ABG TCO2 20 mmol/L (19-24)
[2017-09-28 08:09] LABS: Glucose,Whole Blood 122 mg/dL (75-99)
[2017-09-28] MEDS ORDERED: Potassium Replacement Protocol 1 EACH MISC MISCELLANE PRN (08:21)
[2017-09-28] MEDS ORDERED: Phosphorus Replacement Protoco 1 EACH MISC MISCELLANE PRN (08:21)
[2017-09-28] MEDS ORDERED: Magnesium Replacement Protocol 1 EACH MISC MISCELLANE PRN (08:22)
--- NOTE | 2017-09-28 08:26 | P.CRDCN ---
History of Present Illness Consult date: 09/28/17 History of present illness: This is a 31-year-old female with history of hypertension being treated with verapamil and also chronic pain being managed by neurology apparently is admitted to the emergency room with the goal dose. Patient has taken 20 and so tablets of the verapamil extended along with Neurontin gabapentin another muscle relaxants. Patient will need intubation in the emergency room. She was also found to be bradycardic. She was given atropine and dopamine. Patient started having frequent PVCs. Dopamine was discontinued. Patient was put on Levophed. Her blood pressure has been running about 9 0 to 100 systolic. Heart rate has improved to about 70. Patient is alert and following commands. His possible that patient may be extubated today. Her first troponin is within normal limits. Patient has been having problems with electrolytes, including potassium and magnesium levels and phosphorus and calcium levels. These are being corrected. From cardiac standpoint I will get an echocardiogram. Patient is also on insulin and dextrose strips. Further recommendations depend upon clinical course. Review of Systems Not obtained Past Medical History Past Medical History: Fibromyalgia, Hyperlipidemia, Osteoarthritis (OA) Additional Past Medical History / Comment(s): MIGRAINES, LOWER BACK, NECK & SHOULDER PAIN-degenerative disk, bulging dis, DERMAL PIERCING LEFT CHEEK. 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) History of Any Multi-Drug Resistant Organisms: None Reported Past Surgical History: Back Surgery, Hernia Repair, Tubal Ligation Additional Past Surgical History / Comment(s): D & C, UMBILICAL HERNIA REPAIR, Past Anesthesia/Blood Transfusion Reactions: Motion Sickness Past Psychological History: Anxiety, Depression Smoking Status: Current every day smoker Past Alcohol Use History: None Reported Past Drug Use History: None Reported - Past Family History Mother Family Medical History: No Reported History Medications and Allergies Home Medications Medication Instructions Recorded Confirmed Type Albuterol Inhaler [Ventolin Hfa 2 puff INHALATION RT-Q6H PRN 08/16/15 04/08/17 History Inhaler] HYDROcodone/APAP 7.5-325MG [[place] 1 tab PO Q8HR PRN 08/16/15 04/08/17 History 7.5-325] ALPRAZolam [Xanax] 1 mg PO DAILY PRN 04/08/17 04/08/17 History Amoxicillin/Potassium Clav 1 each PO Q12HR #20 tab 04/08/17 Rx [Augmentin 875-125 Tablet] Butalb/APAP/Caff 50-325-40Mg 2 tab PO Q4H PRN 04/08/17 04/08/17 History [Fioricet 50-325-40] Citalopram Hydrobromide 20 mg PO DAILY 04/08/17 04/08/17 History [Citalopram HBr] Fluticasone Propionate [Flonase 1 - 2 spray EA NOSTRIL DAILY 5 04/08/17 Rx Allergy Relief] Days ml Gabapentin [Neurontin] 300 mg PO TID 04/08/17 04/08/17 History Naproxen [Naprosyn] 500 mg PO BID #20 tablet 04/08/17 Rx Verapamil HCl [Verapamil ER] 120 mg PO DAILY 04/08/17 04/08/17 History Allergies Allergy/AdvReac Type Severity Reaction Status Date / Time No Known Allergies Allergy Verified 09/27/17 15:57 Physical Exam Vitals: Vital Signs Temp Pulse Pulse Resp BP BP Pulse Ox 09/28/17 07:00 72 19 99/50 100 09/28/17 06:30 71 20 87/45 100 09/28/17 06:00 68 20 92/52 99 09/28/17 05:30 64 15 84/38 100 09/28/17 05:00 70 24 94/55 100 09/28/17 04:30 65 18 95/62 100 09/28/17 04:00 98.5 F 63 17 91/47 100 09/28/17 03:30 63 16 94/51 100 09/28/17 03:00 58 L 12 96/47 100 09/28/17 02:30 60 12 104/63 100 09/28/17 02:00 71 13 106/74 100 09/28/17 01:30 61 13 120/70 100 09/28/17 01:00 66 18 107/63 100 09/28/17 00:30 54 L 16 83/46 100 09/28/17 00:00 97.9 F 47 L 14 83/45 100 09/27/17 23:30 52 L 12 92/49 100 09/27/17 23:07 59 L 18 80/35 100 09/27/17 23:00 59 L 14 67/48 100 09/27/17 22:30 81 17 78/36 100 18 22:00 72 15 87/43 98 09/27/18 21:30 82 18 76/39 100 18 21:00 67 14 100/60 100 18 20:30 53 L 12 80/44 100 18 20:00 45 L 15 82/48 100 18 19:30 45 L 12 84/51 100 18 19:00 47 L 12 89/50 100 18 18:38 97.8 F 59 L 15 100 18 18:19 51 L 19 93/54 99 18 18:06 56 L 19 95/55 99 18 17:55 52 L 18 98/55 100 18 17:50 68 17 102/55 97 18 17:40 56 L 18 104/67 98 18 17:35 56 L 18 114/75 93 L 18 17:25 98.7 F 50 L 15 114/75 100 18 17:15 86 10 L 134/79 94 L 18 17:10 86 10 L 131/84 95 18 17:05 66 0 L 123/78 97 18 17:00 72 10 L 130/80 95 18 16:55 76 10 L 156/100 100 18 16:53 71 12 156/100 100 18 16:45 78 14 174/112 100 18 16:40 74 14 181/110 100 18 16:30 42 L 12 128/82 100 18 16:25 46 L 12 155/95 100 18 16:20 66 14 173/116 100 18 16:18 34 L 14 120/77 100 18 16:10 42 L 14 119/85 99 18 15:54 98.1 F 53 L 18 138/100 100 Intake and Output 18 0520/18 18 22:59 06:59 14:59 Intake Total 9314.025 3363.113 135 Output Total 550 1550 225 Balance 873.278 343.113 -90 Intake: IV 1346.06 1620.35 135 .9 KVO 30 90 10 DOPamine DRIP 800 mg In 16.06 5.35 Dextrose/Water 1 500ml. bag @ 2.5 MCG/KG/MIN 5.35 mls/hr IV .Q24H [facility] Rx#: [id number] Dextrose 10% in Water 1, 100 000 ml @ 100 mls/hr IV . Q10H [facility] Rx#:[id number] Dextrose 50%-Water Vial 200 200 250 ml In Empty Bag 1 bag In Water For Injection, Sterile 250 ml @ As Directed IV CONTINUOUS [facility] Rx#:[id number] Sodium Chloride 0.9% 1, 1000 000 ml @ 999 mls/hr IV . Q1H1M [facility] Rx#:[id number] Water For Injection, 1325 125 Sterile 250 ml Empty Bag 1 bag @ Per Protocol IV . Q0M [facility] with Dextrose 50% -Water Vial 250 ml Rx#: [id number] Intake, IV Titration 77.218 272.763 Amount DOPamine DRIP 800 mg In 20.528 Dextrose/Water 1 500ml. bag @ 2.5 MCG/KG/MIN 5.35 mls/hr IV .Q24H [facility] Rx#: [id number] Insulin Regular 300 unit 53.876 49.124 In Sodium Chloride 0.9% 100 ml @ 30 UNIT/HR 10.3 mls/hr IV .Q10H [facility] Rx#: [id number] Norepinephrin 4 mg-0.9% 75.625 Ns Pmx 4 mg In 250 ml @ Titrate IV .Q0M [facility] Rx#: [id number] Propofol 1,000 mg In 0.057 Empty Bag 1 bag @ Titrate IV .Q0M [facility] Rx#: [id number] Propofol 1,000 mg In 2.757 148.014 Empty Bag 1 bag @ Titrate IV .Q0M [facility] Rx#: [id number] Output: Urine 550 1550 225 Other: Voiding Method Indwelling Catheter Indwelling Catheter Weight 57.153 kg 61.4 kg GENERAL EXAM: Patient is alert and intubated HEENT: Normocephalic. Normal reaction of pupils, equal size, normal range of extraocular motion. No erythema or exudates in the throat. NECK: No masses, no nuchal rigidity. CHEST: No chest wall deformity. LUNGS: Equal air entry with no crackles or wheeze. HEART: S1 and S2 normal ABDOMEN: Soft. SKIN: No rashes CENTRAL NERVOUS SYSTEM: Intubated. However response to verbal stimuli EXTREMITIES: No cyanosis, clubbing or edema. Results 09/28/17 06:09 09/28/17 06:09 Cardiac Enzymes 09/27/17 09/27/17 09/28/17 Range/Units 16:10 16:10 06:09 AST 23 15 (14-36) U/L CK-MB (CK-2) <0.2 (0.0-2.4) ng/mL Troponin I <0.012 (0.000-0.034) ng/mL Coagulation 09/27/17 Range/Units 16:10 PT 10.1 (9.0-12.0) sec CBC 09/27/17 09/28/17 Range/Units 16:10 06:09 WBC 6.9 10.7 H (3.8-10.6) k/uL RBC 4.20 3.86 (3.80-5.40) m/uL Hgb 13.1 12.0 (11.4-16.0) gm/dL Hct 38.8 36.8 (34.0-46.0) % Plt Count 259 200 (150-450) k/uL Comprehensive Metabolic Panel 09/27/17 09/28/17 Range/Units 16:10 06:09 Sodium 143 146 H (137-145) mmol/L Potassium 4.1 2.7 L* (3.5-5.1) mmol/L Chloride 106 116 H (98-107) mmol/L Carbon Dioxide 24 18 L (22-30) mmol/L BUN 12 9 (7-17) mg/dL Creatinine 0.99 0.90 (0.52-1.04) mg/dL Glucose 163 H 133 H (74-99) mg/dL Calcium 9.7 10.6 H (8.4-10.2) mg/dL AST 23 15 (14-36) U/L ALT 27 23 (9-52) U/L Alkaline Phosphatase 49 45 (38-126) U/L Total Protein 7.0 5.7 L (6.3-8.2) g/dL Albumin 4.4 3.3 L (3.5-5.0) g/dL Current Medications Generic Name Dose Route Start Last Admin Trade Name Freq PRN Reason Stop Dose Admin Chlorhexidine Gluconate 15 ml 09/27/17 21:00 09/27/17 21:04 Peridex MUCOUS MEM 15 ml BID [facility] Administration Enoxaparin Sodium 40 mg 09/28/17 09:00 Lovenox SQ DAILY [facility] Propofol 1,000 mg/ IV Solution 100 mls @ 0 mls/hr 09/27/17 17:30 09/28/17 06: 24 IV 29.85 mcg/kg/min .Q0M [facility] 11 mls/hr Protocol Titration Titrate Insulin Human Regular 300 unit 103 mls @ 10.3 mls/hr 09/27/17 19:30 09/28/17 05:28 / Sodium Chloride IV 59 unit/hr .Q10H [facility] 20.25 mls/hr Protocol Administration 30 UNIT/HR Norepinephrine Bitartrate 4 mg in 250 mls @ 0 mls/hr 09/27/17 23:00 09/28/17 06:46 Levophed-0.9% Nacl 4 Mg/250ml Pmx IV 5 mcg/min .Q0M [facility] 18.75 mls/hr Protocol Titration Titrate Dextrose/Water 250 ml/ IV 500 mls @ 125 mls/hr 09/28/17 03:17 09/28/17 05:30 Solution/ Sterile Water IV 100 mls/hr CONTINUOUS [facility] Administration Protocol Lorazepam 2 mg 09/27/17 17:20 09/27/17 17:32 Ativan IV 2 mg Q1HR PRN Administration Severe Agitation Lorazepam 1 mg 09/27/17 17:20 Ativan IV Q1HR PRN Mild Agitation Miscellaneous Information 1 each 09/27/17 22:53 Magnesium Per Protocol MISCELLANE DAILY PRN Per Protocol Protocol Naloxone HCl 0.2 mg 09/27/17 17:47 Narcan IV Q2M PRN Opioid Reversal Pantoprazole Sodium 40 mg 09/28/17 09:00 Protonix IV DAILY [facility] Intake and Output 09/27/17 09/28/17 09/28/17 22:59 06:59 14:59 Intake Total 6386.155 4537.113 135 Output Total 550 1550 225 Balance 873.278 343.113 -90 Intake: IV 1346.06 1620.35 135 .9 KVO 30 90 10 DOPamine DRIP 800 mg In 16.06 5.35 Dextrose/Water 1 500ml. bag @ 2.5 MCG/KG/MIN 5.35 mls/hr IV .Q24H [facility] Rx#: [id number] Dextrose 10% in Water 1, 100 000 ml @ 100 mls/hr IV . Q10H [facility] Rx#:[id number] Dextrose 50%-Water Vial 200 200 250 ml In Empty Bag 1 bag In Water For Injection, Sterile 250 ml @ As Directed IV CONTINUOUS [facility] Rx#:[id number] Sodium Chloride 0.9% 1, 1000 000 ml @ 999 mls/hr IV . Q1H1M [facility] Rx#:[id number] Water For Injection, 1325 125 Sterile 250 ml Empty Bag 1 bag @ Per Protocol IV . Q0M [facility] with Dextrose 50% -Water Vial 250 ml Rx#: [id number] Intake, IV Titration 77.218 272.763 Amount DOPamine DRIP 800 mg In 20.528 Dextrose/Water 1 500ml. bag @ 2.5 MCG/KG/MIN 5.35 mls/hr IV .Q24H [facility] Rx#: [id number] Insulin Regular 300 unit 53.876 49.124 In Sodium Chloride 0.9% 100 ml @ 30 UNIT/HR 10.3 mls/hr IV .Q10H [facility] Rx#: [id number] Norepinephrin 4 mg-0.9% 75.625 Ns Pmx 4 mg In 250 ml @ Titrate IV .Q0M [facility] Rx#: [id number] Propofol 1,000 mg In 0.057 Empty Bag 1 bag @ Titrate IV .Q0M [facility] Rx#: [id number] Propofol 1,000 mg In 2.757 148.014 Empty Bag 1 bag @ Titrate IV .Q0M [facility] Rx#: [id number] Output: Urine 550 1550 225 Other: Voiding Method Indwelling Catheter Indwelling Catheter Weight 57.153 kg 61.4 kg 09/28/17 06:09 09/28/17 06:09 EKG Interpretations (text) Initial EKG showed sinus rhythm with PACs. Today's. He EKG showed sinus rhythm , nonspecific changes Assessment and Plan (1) History of hypertension Current Visit: Yes Status: Acute Code(s): Z86.79 - PERSONAL HISTORY OF OTHER DISEASES OF THE CIRCULATORY SYSTEM SNOMED Code(s): 968922087 (2) Calcium channel ranjana overdose Current Visit: Yes Status: Acute Code(s): T46.1X1A - POISONING BY CALCIUM- CHANNEL BLOCKERS, ACCIDENTAL, INIT SNOMED Code(s): 506784635 (3) Suicidal ideation Current Visit: Yes Status: Acute Code(s): R45.851 - SUICIDAL IDEATIONS SNOMED Code(s): 5886045 Plan: Continue current management. Possible extubation. We'll get an echocardiogram to assess LV function.
[2017-09-28 08:32] LABS: Glucose,Whole Blood 133 mg/dL (75-99)
[2017-09-28] MEDS: PROPOFOL 1,000 MG in EMPTY BAG 1 BAG IV SCH ×3 (08:54→23:01)
[2017-09-28] MEDS ORDERED: POTASSIUM CHLORIDE 10 MEQ in WATER FOR INJECTION 1 100ML.BAG IVPB SCH ×2 (09:00→09:30)
[2017-09-28 09:04] LABS: Glucose,Whole Blood 127 mg/dL (75-99)
[2017-09-28] MEDS: MAGNESIUM SULFATE-D5W PMX 1 GM in DEXTROSE/WATER 1 100ML.BAG IVPB SCH ×2 (09:13→14:12)
[2017-09-28] MEDS: PANTOPRAZOLE 40 MG/10 ML VIAL IV SCH (09:20)
[2017-09-28] MEDS: CHLORHEXIDINE GLUCONATE 15 ML CUP MUCOUS MEM SCH ×2 (09:20→22:00)
[2017-09-28] MEDS: ENOXAPARIN 40 MG/0.4 ML SYRINGE SQ SCH (09:20)
[2017-09-28 09:36] LABS: Glucose,Whole Blood 138 mg/dL (75-99)
[2017-09-28 10:03] LABS: Glucose,Whole Blood 133 mg/dL (75-99)
[2017-09-28 10:29] LABS: Glucose,Whole Blood 153 mg/dL (75-99)
[2017-09-28] MEDS ORDERED: POTASSIUM CHLORIDE 20 MEQ in SODIUM CHLORIDE 0.9% 100 ML IVPB SCH (10:30)
[2017-09-28] MEDS: POTASSIUM PHOSPHATE 10 MMOL in SODIUM CHLORIDE 0.9% 250 ML IV SCH ×3 (10:32→18:42)
[2017-09-28 10:59] LABS: Glucose,Whole Blood 144 mg/dL (75-99)
[2017-09-28 11:32] LABS: Glucose,Whole Blood 150 mg/dL (75-99)
[2017-09-28 12:08] LABS: Glucose,Whole Blood 157 mg/dL (75-99)
[2017-09-28 12:36] LABS: Glucose,Whole Blood 135 mg/dL (75-99)
[2017-09-28 13:06] LABS: Glucose,Whole Blood 142 mg/dL (75-99)
[2017-09-28 13:32] LABS: Glucose,Whole Blood 125 mg/dL (75-99)
[2017-09-28 14:06] LABS: Glucose,Whole Blood 155 mg/dL (75-99)
[2017-09-28 14:36] LABS: Glucose,Whole Blood 145 mg/dL (75-99)
[2017-09-28 15:05] LABS: Glucose,Whole Blood 162 mg/dL (75-99)
[2017-09-28 15:38] LABS: Glucose,Whole Blood 151 mg/dL (75-99)
[2017-09-28 16:04] LABS: Glucose,Whole Blood 150 mg/dL (75-99)
[2017-09-28 16:31] LABS: Glucose,Whole Blood 140 mg/dL (75-99)
--- NOTE | 2017-09-28 16:40 | P.CNPUL ---
History of Present Illness Consult date: 09/28/17 Requesting physician: Forest Lee Reason for consult: other (Acute hypoxic respiratory failure secondary to multiple drug overdose including verapamil and gabapentin.) Chief complaint: Overdose History of present illness: This is a 31-year-old female with history of depression, previous suicidal attempts in the past, patient admitted to the ER physician that she wanted to commit suicide, and she took 20-30 verapamil tablets, and she took about 20 gabapentin tablets. She may have also taken muscle relaxants. In the ER the patient was noted to be extremely drowsy, and she was noted to have profound bradycardia with heart rate as low as 38. Poison control was notified, and the recommendation was to start the patient on high insulin infusion protocol. She was also given glucagon, patient was admitted to the ICU on high insulin infusion protocol, along with D50 protocol, it was initially D10. Presently the patient is on 1 unit per kilo per hour of insulin. And the sugars are monitored every hour on the hour, and the protocol is being followed as recommended by poison control. Patient is known to have history of chronic pain syndrome, she has history of fibromyalgia, initially she was given atropine and dopamine, however later on last night patient was placed on 5 g of levo fed. And dopamine was discontinued. The levo fed was started when we were maximized on insulin drip. As per protocol. I saw this patient this morning, reviewed her chest x-ray, ABG, all her labs, and recommended that we continue on propofol drip, Levophed drip, and insulin drip as per protocol. ABG this morning showed a pO2 of 149 pCO2 of 35 pH of 7.34. Potassium 3.4. Hyperchloremic metabolic acidosis non-anion gap was noted. Potassium was low phosphorus was low and they were both corrected as per protocol. Patient is sedated, and not much history could be obtained from the patient. But she was noted to be arousable but gets extremely agitated once aroused. And asking for the tube to be pulled out. Review of Systems ROS unobtainable: due to endotracheal tube Past Medical History Past Medical History: Fibromyalgia, Hyperlipidemia, Osteoarthritis (OA) Additional Past Medical History / Comment(s): MIGRAINES, LOWER BACK, NECK & SHOULDER PAIN-degenerative disk, bulging dis, DERMAL PIERCING LEFT CHEEK. 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) History of Any Multi-Drug Resistant Organisms: None Reported Past Surgical History: Back Surgery, Hernia Repair, Tubal Ligation Additional Past Surgical History / Comment(s): D & C, UMBILICAL HERNIA REPAIR, Past Anesthesia/Blood Transfusion Reactions: Motion Sickness Past Psychological History: Anxiety, Depression Smoking Status: Current every day smoker Past Alcohol Use History: None Reported Past Drug Use History: None Reported - Past Family History Mother Family Medical History: No Reported History Medications and Allergies Home Medications Medication Instructions Recorded Confirmed Type Citalopram Hydrobromide 20 mg PO DAILY 04/08/17 09/28/17 History [Citalopram HBr] Gabapentin [Neurontin] 300 mg PO TID 04/08/17 09/28/17 History Verapamil HCl [Verapamil ER] 120 mg PO DAILY 04/08/17 09/28/17 History tiZANidine [Zanaflex] 4 mg PO TID PRN 09/28/17 09/28/17 History valACYclovir [Valtrex] 500 mg PO BID 09/28/17 09/28/17 History Allergies Allergy/AdvReac Type Severity Reaction Status Date / Time No Known Allergies Allergy Verified 09/27/17 15:57 Physical Exam Vitals: Vital Signs Temp Pulse Pulse Resp BP BP Pulse Ox 09/28/17 16:00 102.0 F H 106 H 21 116/62 100 09/28/17 15:45 112 H 20 114/69 100 09/28/17 15:30 99 16 111/63 100 09/28/17 15:15 107 H 24 115/68 100 09/28/17 15:09 102.8 F H 09/28/17 15:00 101 H 16 115/62 100 09/28/17 14:45 97 15 116/63 100 09/28/17 14:30 95 16 116/62 100 09/28/17 14:15 92 12 119/67 100 09/28/17 14:00 104 H 15 118/59 100 09/28/17 13:45 87 14 135/63 100 09/28/17 13:30 90 22 110/62 100 09/28/17 13:15 76 20 103/53 100 09/28/17 13:00 79 24 110/56 100 09/28/17 12:45 79 17 110/57 100 05/20/18 12:30 80 12 106/56 100 05/20/18 12:15 83 17 104/55 100 05/20/18 12:00 98.2 F 87 18 107/51 100 05/20/18 11:45 79 20 101/52 100 05/20/18 11:30 80 19 99/50 100 05/20/18 11:15 74 22 95/45 100 05/20/18 11:00 75 17 97/45 100 05/20/18 10:45 77 18 98/48 100 05/20/18 10:30 75 20 101/47 100 05/20/18 10:15 73 21 105/48 100 05/20/18 10:00 82 19 96/45 100 05/20/18 09:45 80 19 114/72 100 05/20/18 09:30 91 43 H 91/42 99 05/20/18 09:15 72 17 103/41 100 05/20/18 09:00 69 19 96/59 100 05/20/18 08:45 76 22 96/59 100 05/20/18 08:30 69 21 87/48 100 05/20/18 08:15 74 20 96/53 100 05/20/18 08:00 98.1 F 68 19 94/44 100 05/20/18 07:00 72 19 99/50 100 05/20/18 06:30 71 20 87/45 100 05/20/18 06:00 68 20 92/52 99 05/20/18 05:30 64 15 84/38 100 05/20/18 05:00 70 24 94/55 100 05/20/18 04:30 65 18 95/62 100 05/20/18 04:00 98.5 F 63 17 91/47 100 05/20/18 03:30 63 16 94/51 100 05/20/18 03:00 58 L 12 96/47 100 05/20/18 02:30 60 12 104/63 100 05/20/18 02:00 71 13 106/74 100 05/20/18 01:30 61 13 120/70 100 05/20/18 01:00 66 18 107/63 100 05/20/18 00:30 54 L 16 83/46 100 05/20/18 00:00 97.9 F 47 L 14 83/45 100 05/19/18 23:30 52 L 12 92/49 100 05/19/18 23:07 59 L 18 80/35 100 18 23:00 59 L 14 67/48 100 18 22:30 81 17 78/36 100 18 22:00 72 15 87/43 98 18 21:30 82 18 76/39 100 18 21:00 67 14 100/60 100 09/27/17 20:30 53 L 12 80/44 100 18 20:00 45 L 15 82/48 100 18 19:30 45 L 12 84/51 100 09/27/17 19:00 47 L 12 89/50 100 09/27/17 18:38 97.8 F 59 L 15 100 09/27/17 18:19 51 L 19 93/54 99 09/27/17 18:06 56 L 19 95/55 99 09/27/17 17:55 52 L 18 98/55 100 09/27/17 17:50 68 17 102/55 97 09/27/17 17:40 56 L 18 104/67 98 09/27/17 17:35 56 L 18 114/75 93 L 09/27/17 17:25 98.7 F 50 L 15 114/75 100 09/27/17 17:15 86 10 L 134/79 94 L 09/27/17 17:10 86 10 L 131/84 95 09/27/17 17:05 66 0 L 123/78 97 09/27/17 17:00 72 10 L 130/80 95 09/27/17 16:55 76 10 L 156/100 100 09/27/17 16:53 71 12 156/100 100 09/27/17 16:45 78 14 174/112 100 09/27/17 16:40 74 14 181/110 100 09/27/17 16:30 42 L 12 128/82 100 Intake and Output 09/28/17 09/28/17 09/28/17 06:59 14:59 22:59 Intake Total 0852.524 6117.161 341.130 Output Total 1550 915 55 Balance 346.128 0381.161 286.130 Intake: IV 1620.35 1195 290 .9 KVO 90 120 40 DOPamine DRIP 800 mg In 5.35 Dextrose/Water 1 500ml. bag @ 2.5 MCG/KG/MIN 5.35 mls/hr IV .Q24H [facility] Rx#: [id number] Dextrose 50%-Water Vial 200 250 ml In Empty Bag 1 bag In Water For Injection, Sterile 250 ml @ As Directed IV CONTINUOUS [facility] Rx#:[id number] Potassium Chloride 10 meq 200 In Water For Injection 1 100ml.bag @ 100 mls/hr IVPB Q1H [facility] Rx#: [id number] Water For Injection, 1325 875 250 Sterile 250 ml Empty Bag 1 bag @ Per Protocol IV . Q0M [facility] with Dextrose 50% -Water Vial 250 ml Rx#: [id number] Intake, IV Titration 272.763 832.161 51.130 Amount Insulin Regular 300 unit 49.124 173.727 28.985 In Sodium Chloride 0.9% 100 ml @ 30 UNIT/HR 10.3 mls/hr IV .Q10H [facility] Rx#: [id number] Magnesium Sulfate-D5w Pmx 100 1 gm In Dextrose/Water 1 100ml.bag @ 100 mls/hr IVPB Q1H [facility] Rx#: [id number] Magnesium Sulfate-D5w Pmx 100 1 gm In Dextrose/Water 1 100ml.bag @ 100 mls/hr IVPB Q1H [facility] Rx#: [id number] Norepinephrin 4 mg-0.9% 75.625 146.375 Ns Pmx 4 mg In 250 ml @ Titrate IV .Q0M [facility] Rx#: [id number] Potassium Phosphate 10 250 mmol In Sodium Chloride 0 .9% 250 ml @ 125 mls/hr IV Q2H [facility] Rx#:[id number] Propofol 1,000 mg In 148.014 62.059 22.145 Empty Bag 1 bag @ Titrate IV .Q0M [facility] Rx#: [id number] Output: Urine 1550 915 55 Other: Voiding Method Indwelling Catheter Indwelling Catheter Weight 61.4 kg Physical Exam: Revealed a 31-year-old female in no distress, on mechanical ventilation, intubated, sedated. Arousable with deep painful stimuli. Head: Atraumatic, normocephalic. HEENT:[Neck is supple.] [No neck masses.] [No thyromegaly.] [No JVD.] Endotracheal tube is intact. Chest: [Clear throughout, no crackles, no rhonchi, no wheezes.] Cardiac Exam: [Normal S1 and S2, no S3 gallop, no murmur.] Abdomen: [Soft, nontender, no megaly, no rebound, no guarding, normal bowel sounds.] Extremities: [No clubbing, no edema, no cyanosis.] Neurological Exam: Arousable, no gross focal neurologic deficit. Psychiatric: Cannot be assessed. Lymphatics: No lymphadenopathy. Skin: Multiple tattoos noted throughout the whole body. Results - Laboratory Findings CBC and BMP: 09/28/17 06:09 09/28/17 14:02 ABG ABG pH 7.34 (7.35-7.45) L 09/28/17 07:50 ABG pCO2 35 mmHg (35-45) 09/28/17 07:50 ABG pO2 149 mmHg (83-108) H 09/28/17 07:50 ABG O2 Saturation 98.6 % (94-97) H 09/28/17 07:50 PT/INR, D-dimer PT 10.1 sec (9.0-12.0) 09/27/17 16:10 INR 1.0 (<1.2) 09/27/17 16:10 Abnormal lab findings: Abnormal Labs 09/27/17 09/27/17 09/27/17 16:10 16:23 16:50 WBC Neutrophils # ABG pH ABG pO2 336 H ABG HCO3 ABG Total CO2 25 H ABG O2 Saturation 99.5 H Sodium Potassium Chloride Carbon Dioxide Glucose 163 H POC Glucose (mg/dL) 155 H Calcium Ionized Calcium Aneudy Phosphorus Total Protein Albumin Ur Barbiturates Screen 09/27/17 09/27/17 09/27/17 17:04 17:18 17:30 WBC Neutrophils # ABG pH ABG pO2 ABG HCO3 ABG Total CO2 ABG O2 Saturation Sodium Potassium Chloride Carbon Dioxide Glucose POC Glucose (mg/dL) 272 H 162 H Calcium Ionized Calcium Aneudy Phosphorus Total Protein Albumin Ur Barbiturates Screen Detected H 09/27/17 09/27/17 09/27/17 18:03 18:37 18:53 WBC Neutrophils # ABG pH ABG pO2 ABG HCO3 ABG Total CO2 ABG O2 Saturation Sodium Potassium Chloride Carbon Dioxide Glucose POC Glucose (mg/dL) 62 L 51 L 180 H Calcium Ionized Calcium Aneudy Phosphorus Total Protein Albumin Ur Barbiturates Screen 09/27/17 09/27/17 09/27/17 19:02 20:02 20:06 WBC Neutrophils # ABG pH ABG pO2 ABG HCO3 ABG Total CO2 ABG O2 Saturation Sodium Potassium Chloride Carbon Dioxide Glucose POC Glucose (mg/dL) 138 H 70 L Calcium Ionized Calcium Aneudy 6.5 H* Phosphorus Total Protein Albumin Ur Barbiturates Screen 09/27/17 09/27/17 09/27/17 20:16 20:31 20:46 WBC Neutrophils # ABG pH ABG pO2 ABG HCO3 ABG Total CO2 ABG O2 Saturation Sodium Potassium Chloride Carbon Dioxide Glucose POC Glucose (mg/dL) 323 H 246 H 208 H Calcium Ionized Calcium Aneudy Phosphorus Total Protein Albumin Ur Barbiturates Screen 09/27/17 09/27/17 09/27/17 21:01 21:29 21:46 WBC Neutrophils # ABG pH ABG pO2 ABG HCO3 ABG Total CO2 ABG O2 Saturation Sodium Potassium Chloride Carbon Dioxide Glucose POC Glucose (mg/dL) 184 H 119 H 106 H Calcium Ionized Calcium Aneudy Phosphorus Total Protein Albumin Ur Barbiturates Screen 09/27/17 09/27/17 09/27/17 22:01 23:01 23:28 WBC Neutrophils # ABG pH ABG pO2 ABG HCO3 ABG Total CO2 ABG O2 Saturation Sodium Potassium Chloride Carbon Dioxide Glucose POC Glucose (mg/dL) 106 H 108 H 164 H Calcium Ionized Calcium Aneudy Phosphorus Total Protein Albumin Ur Barbiturates Screen 09/28/17 09/28/17 09/28/17 00:02 00:29 00:57 WBC Neutrophils # ABG pH ABG pO2 ABG HCO3 ABG Total CO2 ABG O2 Saturation Sodium Potassium Chloride Carbon Dioxide Glucose POC Glucose (mg/dL) 158 H 190 H 157 H Calcium Ionized Calcium Aneudy Phosphorus Total Protein Albumin Ur Barbiturates Screen 09/28/17 09/28/17 09/28/17 01:35 02:00 02:29 WBC Neutrophils # ABG pH ABG pO2 ABG HCO3 ABG Total CO2 ABG O2 Saturation Sodium Potassium Chloride Carbon Dioxide Glucose POC Glucose (mg/dL) 197 H 166 H 182 H Calcium Ionized Calcium Aneudy Phosphorus Total Protein Albumin Ur Barbiturates Screen 09/28/17 09/28/17 09/28/17 02:59 03:33 04:10 WBC Neutrophils # ABG pH ABG pO2 ABG HCO3 ABG Total CO2 ABG O2 Saturation Sodium Potassium Chloride Carbon Dioxide Glucose POC Glucose (mg/dL) 244 H 232 H 245 H Calcium Ionized Calcium Aneudy Phosphorus Total Protein Albumin Ur Barbiturates Screen 09/28/17 09/28/17 09/28/17 04:29 05:15 05:54 WBC Neutrophils # ABG pH ABG pO2 ABG HCO3 ABG Total CO2 ABG O2 Saturation Sodium Potassium Chloride Carbon Dioxide Glucose POC Glucose (mg/dL) 206 H 220 H 155 H Calcium Ionized Calcium Aneudy Phosphorus Total Protein Albumin Ur Barbiturates Screen 09/28/17 09/28/17 09/28/17 06:09 06:09 06:14 WBC 10.7 H Neutrophils # 9.0 H ABG pH ABG pO2 ABG HCO3 ABG Total CO2 ABG O2 Saturation Sodium 146 H Potassium 2.7 L* Chloride 116 H Carbon Dioxide 18 L Glucose 133 H POC Glucose (mg/dL) 142 H Calcium 10.6 H Ionized Calcium Aneudy 6.4 H* Phosphorus 0.6 L* Total Protein 5.7 L Albumin 3.3 L Ur Barbiturates Screen 09/28/17 09/28/17 09/28/17 06:29 06:45 06:57 WBC Neutrophils # ABG pH ABG pO2 ABG HCO3 ABG Total CO2 ABG O2 Saturation Sodium Potassium Chloride Carbon Dioxide Glucose POC Glucose (mg/dL) 130 H 127 H 134 H Calcium Ionized Calcium Aneudy Phosphorus Total Protein Albumin Ur Barbiturates Screen 09/28/17 09/28/17 09/28/17 07:42 07:50 07:58 WBC Neutrophils # ABG pH 7.34 L ABG pO2 149 H ABG HCO3 19 L ABG Total CO2 ABG O2 Saturation 98.6 H Sodium Potassium Chloride Carbon Dioxide Glucose POC Glucose (mg/dL) 135 H 122 H Calcium Ionized Calcium Aneudy Phosphorus Total Protein Albumin Ur Barbiturates Screen 09/28/17 09/28/17 09/28/17 08:30 09:00 09:03 WBC Neutrophils # ABG pH ABG pO2 ABG HCO3 ABG Total CO2 ABG O2 Saturation Sodium Potassium 2.8 L* Chloride Carbon Dioxide Glucose POC Glucose (mg/dL) 133 H 127 H Calcium Ionized Calcium Aneudy Phosphorus Total Protein Albumin Ur Barbiturates Screen 09/28/17 09/28/17 09/28/17 09:34 10:01 10:28 WBC Neutrophils # ABG pH ABG pO2 ABG HCO3 ABG Total CO2 ABG O2 Saturation Sodium Potassium Chloride Carbon Dioxide Glucose POC Glucose (mg/dL) 138 H 133 H 153 H Calcium Ionized Calcium Aneudy Phosphorus Total Protein Albumin Ur Barbiturates Screen 09/28/17 09/28/17 09/28/17 10:58 11:30 12:07 WBC Neutrophils # ABG pH ABG pO2 ABG HCO3 ABG Total CO2 ABG O2 Saturation Sodium Potassium Chloride Carbon Dioxide Glucose POC Glucose (mg/dL) 144 H 150 H 157 H Calcium Ionized Calcium Aneudy Phosphorus Total Protein Albumin Ur Barbiturates Screen 09/28/17 09/28/17 09/28/17 12:34 13:05 13:31 WBC Neutrophils # ABG pH ABG pO2 ABG HCO3 ABG Total CO2 ABG O2 Saturation Sodium Potassium Chloride Carbon Dioxide Glucose POC Glucose (mg/dL) 135 H 142 H 125 H Calcium Ionized Calcium Aneudy Phosphorus Total Protein Albumin Ur Barbiturates Screen 09/28/17 09/28/17 09/28/17 14:02 14:05 14:35 WBC Neutrophils # ABG pH ABG pO2 ABG HCO3 ABG Total CO2 ABG O2 Saturation Sodium Potassium 3.4 L Chloride Carbon Dioxide Glucose POC Glucose (mg/dL) 155 H 145 H Calcium Ionized Calcium Aneudy Phosphorus Total Protein Albumin Ur Barbiturates Screen 09/28/17 09/28/17 09/28/17 15:02 15:36 16:02 WBC Neutrophils # ABG pH ABG pO2 ABG HCO3 ABG Total CO2 ABG O2 Saturation Sodium Potassium Chloride Carbon Dioxide Glucose POC Glucose (mg/dL) 162 H 151 H 150 H Calcium Ionized Calcium Aneudy Phosphorus Total Protein Albumin Ur Barbiturates Screen - Diagnostic Findings Chest x-ray: image reviewed (Minimal left basilar atelectasis is noted.) Assessment and Plan Assessment: Impression: 1 acute hypoxic respiratory failure secondary to multiple drugs overdose including calcium channel blockers and gabapentin. 2 profound bradycardia upon presentation secondary to calcium channel blockers overdose. And toxicity. 3 depression, major affective disorder, patient will definitely need to be seen by psychiatry once she is extubated . In the meantime we'll continue suicidal precautions. 4 history of hypertension., Fibromyalgia, chronic pain syndrome, osteoarthritis , hyperlipidemia, migraine cephalgia, chronic back pain. Recommendation: Continue mechanical ventilation, continue GI and DVT prophylaxis , continue insulin drip as per protocol, continue dextrose drip as per protocol , patient is now off norepinephrine, I plan to titrate the insulin drip as tolerated and as long as the blood pressure holds nicely, we'll try to avoid pressors as much as possible if we can. Plan to extubate either later today or early in the morning. Prognosis remains very guarded, patient is critically ill. Time with Patient: Greater than 30
[2017-09-28 17:04] LABS: Glucose,Whole Blood 134 mg/dL (75-99)
[2017-09-28 17:35] LABS: Glucose,Whole Blood 128 mg/dL (75-99)
[2017-09-28 18:09] LABS: Glucose,Whole Blood 116 mg/dL (75-99)
[2017-09-28 18:28] VITALS: BMI 21.2
[2017-09-28 18:34] LABS: Glucose,Whole Blood 109 mg/dL (75-99)
[2017-09-28] MEDS: CLINDAMYCIN 300 MG in DEXTROSE 5% IN WATER 50 ML IVPB SCH ×2 (18:42)
[2017-09-28 19:00] LABS: Glucose,Whole Blood 109 mg/dL (75-99)
[2017-09-28 19:32] LABS: Glucose,Whole Blood 122 mg/dL (75-99)
[2017-09-28 20:09] LABS: Glucose,Whole Blood 108 mg/dL (75-99)
[2017-09-28 20:35] LABS: Glucose,Whole Blood 109 mg/dL (75-99)
[2017-09-28 21:12] LABS: Glucose,Whole Blood 114 mg/dL (75-99)
[2017-09-28 22:01] LABS: Glucose,Whole Blood 121 mg/dL (75-99)
[2017-09-28 22:32] LABS: Glucose,Whole Blood 43 mg/dL (75-99); Glucose,Whole Blood 44 mg/dL (75-99)
[2017-09-28] MEDS ORDERED: DEXTROSE 50%-WATER 50 ML SYRINGE IVP ONE (22:33)
[2017-09-28] MEDS ORDERED: POTASSIUM CHLORIDE 20 MEQ in WATER FOR INJECTION 1 100ML.BAG IVPB SCH (23:00)
[2017-09-28] MEDS: POTASSIUM CHLORIDE 10 MEQ in WATER FOR INJECTION 1 100ML.BAG IVPB SCH (23:01)
[2017-09-28 23:04] LABS: Glucose,Whole Blood 152 mg/dL (75-99)
--- NOTE | 2017-09-28 23:14 | PN ---
PROGRESS NOTE DATE OF SERVICE: 09/28/2017. PRESENTING COMPLAINT: Overdose. INTERVAL HISTORY: This patient presented with overdose of verapamil, Neurontin gabapentin, and some muscle relaxants. Patient remains on the ventilator, though more awake. The patient is on IV insulin drip and dextrose per Poison Control protocol. The patient is moving about a bit. REVIEW OF SYSTEMS: Patient intubated. CURRENT MEDICATIONS: Reviewed that include IV dextrose and IV insulin and Levophed and Propofol. PHYSICAL EXAMINATION: Temperature 102, pulse 106, respiration 21, blood pressure 116/62, pulse ox 100%. General appearance: Lying in bed, intubated. Eyes pupils equal. Conjunctivae normal. HEENT: External appearance of nose and ears normal. Oral cavity, NG tube, endotracheal tube in place. Neck JVD not raised. Mass not palpable. Respiratory effort increased. Lungs decreased breath sounds. Cardiovascular 1st and 2nd sounds normal. No edema. ABDOMEN: Soft, nontender. Liver and spleen not palpable. Psychiatry unable to assess. Neurological: Pupils equal. Plantars are downgoing. The patient is actually moving about. INVESTIGATIONS: White count 10.7, potassium 2.7, chloride 116, BUN 9, creatinine 0.90. Accu-Cheks are noted. Ionized calcium was 6.4, phosphorus is 0.6. ASSESSMENT: 1. Acute overdose of 20/30 verapamil, Neurontin and muscle relaxants. 2. Severe bradycardia from calcium channel ranjana with bigeminy. 3. Unilateral kidney. 4. Anxiety, depression not otherwise specified. 5. . 6. Acute metabolic encephalopathy from above. 7. Acute respiratory failure from central respiratory depression from medications requiring ventilator assistance. 8. Severe hypophosphatemia. 9. Hypocalcemia. 10.Severe hypokalemia. 11.Metabolic acidosis. Bicarb is 18. PLAN: Continue current medication and treatment plan. Patient will be given IV calcium, phosphorus, IV fluids, potassium replacement protocol is placed. Prognosis remains guarded. The patient is definitely slow to respond. Follow with Pulmonary and Cardiology. MMODL / IJN: [id number] /
[2017-09-28 23:35] LABS: Appearance,Urine Clear (Clear); Bilirubin,Urine Negative (Negative); Blood,Urine Negative (Negative); Color,Urine Yellow; Glucose,Urine (UA) Trace (Negative); Ketones,Urine Negative (Negative); Leukocyte Esterase,Urine Negative (Negative); Nitrite,Urine Negative (Negative); Protein,Urine Trace (Negative); Specific Gravity,Urine 1.012 (1.001-1.035); Urobilinogen,Urine <2.0 mg/dL (<2.0)
[2017-09-28 23:35] LABS: Glucose,Whole Blood 127 mg/dL (75-99)
[2017-09-29 00:13] LABS: Glucose,Whole Blood 118 mg/dL (75-99)
[2017-09-29] MEDS: CLINDAMYCIN 300 MG in DEXTROSE 5% IN WATER 50 ML IVPB SCH ×6 (00:19→16:06)
[2017-09-29] MEDS: POTASSIUM CHLORIDE 10 MEQ in WATER FOR INJECTION 1 100ML.BAG IVPB SCH ×3 (00:19→10:03)
[2017-09-29 01:09] LABS: Glucose,Whole Blood 116 mg/dL (75-99)
[2017-09-29 01:39] LABS: Glucose,Whole Blood 125 mg/dL (75-99)
[2017-09-29 02:12] LABS: Glucose,Whole Blood 125 mg/dL (75-99)
[2017-09-29 02:35] LABS: Glucose,Whole Blood 139 mg/dL (75-99)
[2017-09-29] MEDS: WATER FOR INJECTION IV SCH (02:37)
[2017-09-29] MEDS: WATER IV SCH (02:37)
[2017-09-29] MEDS: DEXTROSE 50% IV SCH (02:37)
[2017-09-29] MEDS: STERILE IV SCH (02:37)
[2017-09-29 03:12] LABS: Glucose,Whole Blood 160 mg/dL (75-99)
[2017-09-29 03:56] LABS: Glucose,Whole Blood 185 mg/dL (75-99)
[2017-09-29 04:42] LABS: ABG Base Excess -5.5 mmol/L; ABG HCO3 20 mmol/L (21-25); ABG Oxygen Saturation 99.4 % (94-97); ABG PCO2 34 mmHg (35-45); ABG PH 7.37 (7.35-7.45); ABG PO2 169 mmHg (83-108); ABG TCO2 21 mmol/L (19-24)
[2017-09-29 05:01] LABS: Basophils % (A) 0 %; Eosinophils % (A) 0 %; HCT 34.4 % (34.0-46.0); HGB 11.2 gm/dL (11.4-16.0); Lymphocytes # (A) 1.2 k/uL (1.0-4.8); Lymphocytes % (A) 10 %; MCH 31.1 pg (25.0-35.0); MCHC 32.6 g/dL (31.0-37.0); MCV 95.2 fL (80.0-100.0); Mean Platelet Volume 8.3; Monocytes # (A) 0.6 k/uL (0-1.0); Monocytes % (A) 5 %; Neutrophils # (A) 10.3 k/uL (1.3-7.7); Neutrophils % (A) 84 %; Platelet Count 156 k/uL (150-450); RBC 3.62 m/uL (3.80-5.40); WBC 12.4 k/uL (3.8-10.6)
[2017-09-29 05:03] LABS: Glucose,Whole Blood 191 mg/dL (75-99)
[2017-09-29 05:31] LABS: ALT 27 U/L (9-52); AST 14 U/L (14-36); Albumin 2.9 g/dL (3.5-5.0); Alkaline Phosphatase 41 U/L (38-126); Anion Gap 12 mmol/L; Blood Urea Nitrogen 4 mg/dL (7-17); Calcium 8.7 mg/dL (8.4-10.2); Carbon Dioxide 18 mmol/L (22-30); Chloride 112 mmol/L (98-107); Glucose 184 mg/dL (74-99); Magnesium 1.8 mg/dL (1.6-2.3); Phosphorus 3.5 mg/dL (2.5-4.5); Potassium 3.3 mmol/L (3.5-5.1); Sodium 142 mmol/L (137-145); Total Bilirubin 0.2 mg/dL (0.2-1.3); Total Protein 5.2 g/dL (6.3-8.2)
[2017-09-29 05:32] LABS: Glucose,Whole Blood 148 mg/dL (75-99)
[2017-09-29 06:14] LABS: Glucose,Whole Blood 142 mg/dL (75-99)
[2017-09-29] MEDS: MAGNESIUM SULFATE-D5W PMX 1 GM in DEXTROSE/WATER 1 100ML.BAG IVPB SCH ×2 (06:44→10:02)
[2017-09-29 07:06] LABS: Glucose,Whole Blood 126 mg/dL (75-99)
[2017-09-29 08:00] LABS: Glucose,Whole Blood 90 mg/dL (75-99)
--- NOTE | 2017-09-29 08:17 | XR ---
EXAMINATION TYPE: XR chest 1V portable DATE OF EXAM: 09/29/2017 COMPARISON: Prior chest x-ray 09/28/2017 HISTORY: Abnormal chest x-ray, extubation TECHNIQUE: Single frontal view of the chest is obtained. FINDINGS: There is been interval removal of endotracheal and NG tube. Aeration is improved. Heart si ze is stable. No pneumothorax or pleural effusion. IMPRESSION: Interval extubation, improvement in aeration
[2017-09-29 08:58] LABS: Glucose,Whole Blood 117 mg/dL (75-99)
[2017-09-29] MEDS: ENOXAPARIN 40 MG/0.4 ML SYRINGE SQ SCH (09:00)
[2017-09-29] MEDS: PANTOPRAZOLE 40 MG/10 ML VIAL IV SCH (09:00)
[2017-09-29] MEDS: DEXTROSE 5%-0.9% NACL 1,000 ML IV SCH ×2 (10:01→23:39)
--- NOTE | 2017-09-29 10:21 | P.PN ---
Subjective Progress Note Date: 09/29/17 Principal diagnosis: Acute hypoxic respiratory failure secondary to multiple drug overdose including verapamil and gabapentin This is a 31-year-old female with history of depression, previous suicidal attempts in the past, patient admitted to the ER physician that she wanted to commit suicide, and she took 20-30 verapamil tablets, and she took about 20 gabapentin tablets. She may have also taken muscle relaxants. In the ER the patient was noted to be extremely drowsy, and she was noted to have profound bradycardia with heart rate as low as 38. Poison control was notified, and the recommendation was to start the patient on high insulin infusion protocol. She was also given glucagon, patient was admitted to the ICU on high insulin infusion protocol, along with D50 protocol, it was initially D10. Presently the patient is on 1 unit per kilo per hour of insulin. And the sugars are monitored every hour on the hour, and the protocol is being followed as recommended by poison control. Patient is known to have history of chronic pain syndrome, she has history of fibromyalgia, initially she was given atropine and dopamine, however later on last night patient was placed on 5 g of levo fed. And dopamine was discontinued. The levo fed was started when we were maximized on insulin drip. As per protocol. I saw this patient this morning, reviewed her chest x-ray, ABG, all her labs, and recommended that we continue on propofol drip, Levophed drip, and insulin drip as per protocol. ABG this morning showed a pO2 of 149 pCO2 of 35 pH of 7.34. Potassium 3.4. Hyperchloremic metabolic acidosis non-anion gap was noted. Potassium was low phosphorus was low and they were both corrected as per protocol. Patient is sedated, and not much history could be obtained from the patient. But she was noted to be arousable but gets extremely agitated once aroused. And asking for the tube to be pulled out. On 09/29/2017 patient seen in follow-up in intensive care unit. She has been successfully extubated at 5:00 this morning and is currently on room air, with pulse ox at 98%, hemodynamically stable, no bradycardia, she is in sinus rhythm with a rate of 88-90 BPM, no hypotension, patient is nonoliguric, afebrile. Patient is answering questions appropriately, no evidence of neurologic deficits noted. Insulin drip has been on hold, IV D5W infusing at a rate of 75 ML per hour, 0.9 is a 20 ML per hour. Today's lab work shows WBC of 12.4, hemoglobin of 11.2, serum sodium is 142, potassium is 3.8, chloride is 112, carbon dioxide is 18, BUN is 4 and creatinine 0.90. His chest x-ray has been reviewed and is normal. No acute complaints, she denies any chest pain, denies any dyspnea. At this point we will discontinue the high insulin infusion protocol in view of patient's hemodynamic stability, no evidence of bradycardiarrhythmias, we will increase the patient's activity as tolerated, provided incentive spirometry. Psychiatry has been consulted, brain mendez is at the bedside. She will have a 2-D echocardiogram today, can be started on clear liquid diet at lunch. Urine and sputum cultures are pending at this time , patient remains on empiric antibiotics in the form of clindamycin. From pulmonary/critical care standpoint patient is stable for transfer out of intensive care today to regular general medical floor with a highway safety engineer in place. Objective - Vital Signs Vital signs: Vital Signs Temp 99.2 F 09/29/17 04:00 Pulse 88 09/29/17 07:00 Resp 22 09/29/17 07:00 BP 95/54 09/29/17 07:00 Pulse Ox 98 09/29/17 07:00 Intake & Output 09/28/17 09/29/17 09/29/17 18:59 06:59 18:59 Intake Total 2691.445 2550.691 295 Output Total 1120 1664 36 Balance 1571.445 886.691 259 Weight 61.4 kg 64.7 kg Intake: IV 1775 2035 295 .9 KVO 200 210 20 Clindamycin 300 mg In 50 Dextrose 5% in Water 50 ml @ 100 mls/hr IVPB Q8HR [facility] Rx#:[id number] Dextrose 50%-Water Vial 325 75 250 ml In Empty Bag 1 bag In Water For Injection, Sterile 250 ml @ 75 mls/ hr IV CONTINUOUS [facility] Rx#: [id number] Magnesium Sulfate-D5w Pmx 100 1 gm In Dextrose/Water 1 100ml.bag @ 100 mls/hr IVPB Q1H [facility] Rx#: [id number] Potassium Chloride 10 meq 200 In Water For Injection 1 100ml.bag @ 100 mls/hr IVPB Q1H [facility] Rx#: [id number] Potassium Chloride 10 meq 200 In Water For Injection 1 100ml.bag @ 100 mls/hr IVPB Q1H [facility] Rx#: [id number] Potassium Chloride 10 meq 100 In Water For Injection 1 100ml.bag @ 100 mls/hr IVPB Q1H [facility] Rx#: [id number] Potassium Phosphate 10 125 mmol In Sodium Chloride 0 .9% 250 ml @ 125 mls/hr IV Q2H [facility] Rx#:[id number] Water For Injection, 1375 1125 Sterile 250 ml Empty Bag 1 bag @ Per Protocol IV . Q0M [facility] with Dextrose 50% -Water Vial 250 ml Rx#: [id number] Intake, IV Titration 916.445 515.691 Amount Clindamycin 300 mg In 50 Dextrose 5% in Water 50 ml @ 100 mls/hr IVPB Q8HR [facility] Rx#:[id number] Insulin Regular 300 unit 235.866 35.933 In Sodium Chloride 0.9% 100 ml @ 30 UNIT/HR 10.3 mls/hr IV .Q10H [facility] Rx#: [id number] Magnesium Sulfate-D5w Pmx 100 1 gm In Dextrose/Water 1 100ml.bag @ 100 mls/hr IVPB Q1H [facility] Rx#: [id number] Magnesium Sulfate-D5w Pmx 100 1 gm In Dextrose/Water 1 100ml.bag @ 100 mls/hr IVPB Q1H [facility] Rx#: [id number] Norepinephrin 4 mg-0.9% 146.375 Ns Pmx 4 mg In 250 ml @ Titrate IV .Q0M [facility] Rx#: [id number] Potassium Phosphate 10 250 250 mmol In Sodium Chloride 0 .9% 250 ml @ 125 mls/hr IV Q2H [facility] Rx#:[id number] Propofol 1,000 mg In 84.204 179.758 Empty Bag 1 bag @ Titrate IV .Q0M [facility] Rx#: [id number] Output: Gastric Drainage 150 Urine 1120 964 36 Emesis 550 Other: Voiding Method Indwelling Catheter Indwelling Catheter - Exam Physical Exam: Revealed a 31-year-old female in no distress, a bit lethargic, but easily arousable to verbal stimuli, responds appropriately, oriented 3 Head: Atraumatic, normocephalic. HEENT:[Neck is supple.] [No neck masses.] [No thyromegaly.] [No JVD.] Endotracheal tube is intact. Chest: [Clear throughout, no crackles, no rhonchi, no wheezes.] Cardiac Exam: [Normal S1 and S2, no S3 gallop, no murmur.] Abdomen: [Soft, nontender, no megaly, no rebound, no guarding, normal bowel sounds.] Extremities: [No clubbing, no edema, no cyanosis.] Neurological Exam: Arousable, no gross focal neurologic deficit. Psychiatric: Cannot be assessed. Lymphatics: No lymphadenopathy. Skin: Multiple tattoos noted throughout the whole body. - Labs CBC & Chem 7: 09/29/17 04:42 09/29/17 09:19 Labs: Abnormal Lab Results - Last 24 Hours (Table) 09/28/17 09/28/17 09/28/17 Range/Units 10:28 10:58 11:30 WBC (3.8-10.6) k/uL RBC (3.80-5.40) m/uL Hgb (11.4-16.0) gm/dL Neutrophils # (1.3-7.7) k/uL ABG pCO2 (35-45) mmHg ABG pO2 (83-108) mmHg ABG HCO3 (21-25) mmol/L ABG O2 Saturation (94-97) % Potassium (3.5-5.1) mmol/L Chloride (98-107) mmol/L Carbon Dioxide (22-30) mmol/L BUN (7-17) mg/dL Glucose (74-99) mg/dL POC Glucose (mg/dL) 153 H 144 H 150 H (75-99) mg/dL Total Protein (6.3-8.2) g/dL Albumin (3.5-5.0) g/dL Urine Protein (Negative) Urine Glucose (UA) (Negative) 09/28/17 09/28/17 09/28/17 Range/Units 12:07 12:34 13:05 WBC (3.8-10.6) k/uL RBC (3.80-5.40) m/uL Hgb (11.4-16.0) gm/dL Neutrophils # (1.3-7.7) k/uL ABG pCO2 (35-45) mmHg ABG pO2 (83-108) mmHg ABG HCO3 (21-25) mmol/L ABG O2 Saturation (94-97) % Potassium (3.5-5.1) mmol/L Chloride (98-107) mmol/L Carbon Dioxide (22-30) mmol/L BUN (7-17) mg/dL Glucose (74-99) mg/dL POC Glucose (mg/dL) 157 H 135 H 142 H (75-99) mg/dL Total Protein (6.3-8.2) g/dL Albumin (3.5-5.0) g/dL Urine Protein (Negative) Urine Glucose (UA) (Negative) 09/28/17 09/28/17 09/28/17 Range/Units 13:31 14:02 14:05 WBC (3.8-10.6) k/uL RBC (3.80-5.40) m/uL Hgb (11.4-16.0) gm/dL Neutrophils # (1.3-7.7) k/uL ABG pCO2 (35-45) mmHg ABG pO2 (83-108) mmHg ABG HCO3 (21-25) mmol/L ABG O2 Saturation (94-97) % Potassium 3.4 L (3.5-5.1) mmol/L Chloride (98-107) mmol/L Carbon Dioxide (22-30) mmol/L BUN (7-17) mg/dL Glucose (74-99) mg/dL POC Glucose (mg/dL) 125 H 155 H (75-99) mg/dL Total Protein (6.3-8.2) g/dL Albumin (3.5-5.0) g/dL Urine Protein (Negative) Urine Glucose (UA) (Negative) 09/28/17 09/28/17 09/28/17 Range/Units 14:35 15:02 15:36 WBC (3.8-10.6) k/uL RBC (3.80-5.40) m/uL Hgb (11.4-16.0) gm/dL Neutrophils # (1.3-7.7) k/uL ABG pCO2 (35-45) mmHg ABG pO2 (83-108) mmHg ABG HCO3 (21-25) mmol/L ABG O2 Saturation (94-97) % Potassium (3.5-5.1) mmol/L Chloride (98-107) mmol/L Carbon Dioxide (22-30) mmol/L BUN (7-17) mg/dL Glucose (74-99) mg/dL POC Glucose (mg/dL) 145 H 162 H 151 H (75-99) mg/dL Total Protein (6.3-8.2) g/dL Albumin (3.5-5.0) g/dL Urine Protein (Negative) Urine Glucose (UA) (Negative) 09/28/17 09/28/17 09/28/17 Range/Units 16:02 16:30 17:03 WBC (3.8-10.6) k/uL RBC (3.80-5.40) m/uL Hgb (11.4-16.0) gm/dL Neutrophils # (1.3-7.7) k/uL ABG pCO2 (35-45) mmHg ABG pO2 (83-108) mmHg ABG HCO3 (21-25) mmol/L ABG O2 Saturation (94-97) % Potassium (3.5-5.1) mmol/L Chloride (98-107) mmol/L Carbon Dioxide (22-30) mmol/L BUN (7-17) mg/dL Glucose (74-99) mg/dL POC Glucose (mg/dL) 150 H 140 H 134 H (75-99) mg/dL Total Protein (6.3-8.2) g/dL Albumin (3.5-5.0) g/dL Urine Protein (Negative) Urine Glucose (UA) (Negative) 09/28/17 09/28/17 09/28/17 Range/Units 17:34 18:08 18:33 WBC (3.8-10.6) k/uL RBC (3.80-5.40) m/uL Hgb (11.4-16.0) gm/dL Neutrophils # (1.3-7.7) k/uL ABG pCO2 (35-45) mmHg ABG pO2 (83-108) mmHg ABG HCO3 (21-25) mmol/L ABG O2 Saturation (94-97) % Potassium (3.5-5.1) mmol/L Chloride (98-107) mmol/L Carbon Dioxide (22-30) mmol/L BUN (7-17) mg/dL Glucose (74-99) mg/dL POC Glucose (mg/dL) 128 H 116 H 109 H (75-99) mg/dL Total Protein (6.3-8.2) g/dL Albumin (3.5-5.0) g/dL Urine Protein (Negative) Urine Glucose (UA) (Negative) 09/28/17 09/28/17 09/28/17 Range/Units 18:58 19:31 20:08 WBC (3.8-10.6) k/uL RBC (3.80-5.40) m/uL Hgb (11.4-16.0) gm/dL Neutrophils # (1.3-7.7) k/uL ABG pCO2 (35-45) mmHg ABG pO2 (83-108) mmHg ABG HCO3 (21-25) mmol/L ABG O2 Saturation (94-97) % Potassium (3.5-5.1) mmol/L Chloride (98-107) mmol/L Carbon Dioxide (22-30) mmol/L BUN (7-17) mg/dL Glucose (74-99) mg/dL POC Glucose (mg/dL) 109 H 122 H 108 H (75-99) mg/dL Total Protein (6.3-8.2) g/dL Albumin (3.5-5.0) g/dL Urine Protein (Negative) Urine Glucose (UA) (Negative) 09/28/17 09/28/17 09/28/17 Range/Units 20:33 21:01 21:11 WBC (3.8-10.6) k/uL RBC (3.80-5.40) m/uL Hgb (11.4-16.0) gm/dL Neutrophils # (1.3-7.7) k/uL ABG pCO2 (35-45) mmHg ABG pO2 (83-108) mmHg ABG HCO3 (21-25) mmol/L ABG O2 Saturation (94-97) % Potassium 3.4 L (3.5-5.1) mmol/L Chloride (98-107) mmol/L Carbon Dioxide (22-30) mmol/L BUN (7-17) mg/dL Glucose (74-99) mg/dL POC Glucose (mg/dL) 109 H 114 H (75-99) mg/dL Total Protein (6.3-8.2) g/dL Albumin (3.5-5.0) g/dL Urine Protein (Negative) Urine Glucose (UA) (Negative) 09/28/17 09/28/17 09/28/17 Range/Units 21:59 22:31 22:31 WBC (3.8-10.6) k/uL RBC (3.80-5.40) m/uL Hgb (11.4-16.0) gm/dL Neutrophils # (1.3-7.7) k/uL ABG pCO2 (35-45) mmHg ABG pO2 (83-108) mmHg ABG HCO3 (21-25) mmol/L ABG O2 Saturation (94-97) % Potassium (3.5-5.1) mmol/L Chloride (98-107) mmol/L Carbon Dioxide (22-30) mmol/L BUN (7-17) mg/dL Glucose (74-99) mg/dL POC Glucose (mg/dL) 121 H 44 L 43 L (75-99) mg/dL Total Protein (6.3-8.2) g/dL Albumin (3.5-5.0) g/dL Urine Protein (Negative) Urine Glucose (UA) (Negative) 09/28/17 09/28/17 09/28/17 Range/Units 23:03 23:10 23:33 WBC (3.8-10.6) k/uL RBC (3.80-5.40) m/uL Hgb (11.4-16.0) gm/dL Neutrophils # (1.3-7.7) k/uL ABG pCO2 (35-45) mmHg ABG pO2 (83-108) mmHg ABG HCO3 (21-25) mmol/L ABG O2 Saturation (94-97) % Potassium (3.5-5.1) mmol/L Chloride (98-107) mmol/L Carbon Dioxide (22-30) mmol/L BUN (7-17) mg/dL Glucose (74-99) mg/dL POC Glucose (mg/dL) 152 H 127 H (75-99) mg/dL Total Protein (6.3-8.2) g/dL Albumin (3.5-5.0) g/dL Urine Protein Trace H (Negative) Urine Glucose (UA) Trace H (Negative) 09/29/17 09/29/17 09/29/17 Range/Units 00:12 00:44 00:59 WBC (3.8-10.6) k/uL RBC (3.80-5.40) m/uL Hgb (11.4-16.0) gm/dL Neutrophils # (1.3-7.7) k/uL ABG pCO2 (35-45) mmHg ABG pO2 (83-108) mmHg ABG HCO3 (21-25) mmol/L ABG O2 Saturation (94-97) % Potassium 3.4 L (3.5-5.1) mmol/L Chloride (98-107) mmol/L Carbon Dioxide (22-30) mmol/L BUN (7-17) mg/dL Glucose (74-99) mg/dL POC Glucose (mg/dL) 118 H 116 H (75-99) mg/dL Total Protein (6.3-8.2) g/dL Albumin (3.5-5.0) g/dL Urine Protein (Negative) Urine Glucose (UA) (Negative) 09/29/17 09/29/17 09/29/17 Range/Units 01:37 02:02 02:34 WBC (3.8-10.6) k/uL RBC (3.80-5.40) m/uL Hgb (11.4-16.0) gm/dL Neutrophils # (1.3-7.7) k/uL ABG pCO2 (35-45) mmHg ABG pO2 (83-108) mmHg ABG HCO3 (21-25) mmol/L ABG O2 Saturation (94-97) % Potassium (3.5-5.1) mmol/L Chloride (98-107) mmol/L Carbon Dioxide (22-30) mmol/L BUN (7-17) mg/dL Glucose (74-99) mg/dL POC Glucose (mg/dL) 125 H 125 H 139 H (75-99) mg/dL Total Protein (6.3-8.2) g/dL Albumin (3.5-5.0) g/dL Urine Protein (Negative) Urine Glucose (UA) (Negative) 09/29/17 09/29/17 09/29/17 Range/Units 03:10 03:36 03:55 WBC (3.8-10.6) k/uL RBC (3.80-5.40) m/uL Hgb (11.4-16.0) gm/dL Neutrophils # (1.3-7.7) k/uL ABG pCO2 34 L (35-45) mmHg ABG pO2 169 H (83-108) mmHg ABG HCO3 20 L (21-25) mmol/L ABG O2 Saturation 99.4 H (94-97) % Potassium (3.5-5.1) mmol/L Chloride (98-107) mmol/L Carbon Dioxide (22-30) mmol/L BUN (7-17) mg/dL Glucose (74-99) mg/dL POC Glucose (mg/dL) 160 H 185 H (75-99) mg/dL Total Protein (6.3-8.2) g/dL Albumin (3.5-5.0) g/dL Urine Protein (Negative) Urine Glucose (UA) (Negative) 09/29/17 09/29/17 09/29/17 Range/Units 04:42 04:42 05:01 WBC 12.4 H (3.8-10.6) k/uL RBC 3.62 L (3.80-5.40) m/uL Hgb 11.2 L (11.4-16.0) gm/dL Neutrophils # 10.3 H (1.3-7.7) k/uL ABG pCO2 (35-45) mmHg ABG pO2 (83-108) mmHg ABG HCO3 (21-25) mmol/L ABG O2 Saturation (94-97) % Potassium 3.3 L (3.5-5.1) mmol/L Chloride 112 H (98-107) mmol/L Carbon Dioxide 18 L (22-30) mmol/L BUN 4 L (7-17) mg/dL Glucose 184 H (74-99) mg/dL POC Glucose (mg/dL) 191 H (75-99) mg/dL Total Protein 5.2 L (6.3-8.2) g/dL Albumin 2.9 L (3.5-5.0) g/dL Urine Protein (Negative) Urine Glucose (UA) (Negative) 09/29/17 09/29/17 09/29/17 Range/Units 05:31 06:04 07:04 WBC (3.8-10.6) k/uL RBC (3.80-5.40) m/uL Hgb (11.4-16.0) gm/dL Neutrophils # (1.3-7.7) k/uL ABG pCO2 (35-45) mmHg ABG pO2 (83-108) mmHg ABG HCO3 (21-25) mmol/L ABG O2 Saturation (94-97) % Potassium (3.5-5.1) mmol/L Chloride (98-107) mmol/L Carbon Dioxide (22-30) mmol/L BUN (7-17) mg/dL Glucose (74-99) mg/dL POC Glucose (mg/dL) 148 H 142 H 126 H (75-99) mg/dL Total Protein (6.3-8.2) g/dL Albumin (3.5-5.0) g/dL Urine Protein (Negative) Urine Glucose (UA) (Negative) 09/29/17 Range/Units 08:56 WBC (3.8-10.6) k/uL RBC (3.80-5.40) m/uL Hgb (11.4-16.0) gm/dL Neutrophils # (1.3-7.7) k/uL ABG pCO2 (35-45) mmHg ABG pO2 (83-108) mmHg ABG HCO3 (21-25) mmol/L ABG O2 Saturation (94-97) % Potassium (3.5-5.1) mmol/L Chloride (98-107) mmol/L Carbon Dioxide (22-30) mmol/L BUN (7-17) mg/dL Glucose (74-99) mg/dL POC Glucose (mg/dL) 117 H (75-99) mg/dL Total Protein (6.3-8.2) g/dL Albumin (3.5-5.0) g/dL Urine Protein (Negative) Urine Glucose (UA) (Negative) Microbiology - Last 24 Hours (Table) 09/28/17 05:15 Gram Stain - Preliminary Sputum Sputum Culture - Preliminary 09/28/17 01:45 Urine Culture - Preliminary Urine,Catheterized Assessment and Plan Plan: Assessment: 1 acute hypoxic respiratory failure secondary to multiple drugs overdose including calcium channel blockers and gabapentin, recovered, patient was extubated this morning, and is currently on room air, tolerating extubation quite well. 2 profound bradycardia upon presentation secondary to calcium channel blockers overdose. And toxicity. Recovered, patient is currently in sinus rhythm, with a rate of 80-90 BPM, hemodynamically stable 3 depression, major affective disorder, and suicidal precaution, psychiatry consultation has been requested 4 history of hypertension., Fibromyalgia, chronic pain syndrome, osteoarthritis , hyperlipidemia, migraine cephalgia, chronic back pain. Plan: Encourage incentive spirometry use, increase activity as tolerated. continue empiric antibiotics, continue nebulized treatments on an as-needed basis. Today 's chest x-ray is normal. Vital signs are stable, no evidence of bradycardia, hemodynamically stable. We will discontinue the high insulin infusion protocol for calcium channel ranjana toxicity at this time. Echocardiogram has been ordered cardiology, and is pending at this time. From pulmonary/critical care standpoint patient is stable to transfer out of the intensive care to [facility]. medical surgical floor with remote telemetry. Psychiatry consultation has been requested. We'll initiate clear liquids, and maintain aspiration precautions. We'll continue to follow I performed a history & physical examination of the patient and discussed their management with my nurse practitioner, Magda Castañeda. I reviewed the nurse practitioner's note and agree with the documented findings and plan of care. Lung sounds are clear. The findings and the impression was discussed with the patient. I attest to the documentation by the nurse practitioner. Critical care time is over 30 minutes Time with Patient: Greater than 30
--- NOTE | 2017-09-29 10:54 | P.PN ---
Subjective Progress Note Date: 09/29/17 Principal diagnosis: Drug overdose, hypotension and bradycardia This patient has made good progress. Patient is extubated. Patient is maintaining sinus rhythm. Blood pressure is stable. Echocardiogram showed apparently normal LV function. Psychiatry consult is being initiated. Patient may be transferred to telemetry unit and increase activity. We'll be seeing her as needed Objective - Vital Signs Vital signs: Vital Signs Temp 98.3 F 09/29/17 08:00 Pulse 91 09/29/17 10:30 Resp 15 09/29/17 10:30 BP 83/47 09/29/17 10:30 Pulse Ox 98 09/29/17 10:30 Intake & Output 09/28/17 09/29/17 09/29/17 18:59 06:59 18:59 Intake Total 2691.445 2550.691 295 Output Total 1120 1664 336 Balance 1571.445 886.691 -41 Weight 61.4 kg 64.7 kg Intake: IV 1775 2035 295 .9 KVO 200 210 20 Clindamycin 300 mg In 50 Dextrose 5% in Water 50 ml @ 100 mls/hr IVPB Q8HR [facility] Rx#:[id number] Dextrose 50%-Water Vial 325 75 250 ml In Empty Bag 1 bag In Water For Injection, Sterile 250 ml @ 75 mls/ hr IV CONTINUOUS [facility] Rx#: [id number] Magnesium Sulfate-D5w Pmx 100 1 gm In Dextrose/Water 1 100ml.bag @ 100 mls/hr IVPB Q1H [facility] Rx#: [id number] Potassium Chloride 10 meq 200 In Water For Injection 1 100ml.bag @ 100 mls/hr IVPB Q1H [facility] Rx#: [id number] Potassium Chloride 10 meq 200 In Water For Injection 1 100ml.bag @ 100 mls/hr IVPB Q1H [facility] Rx#: [id number] Potassium Chloride 10 meq 100 In Water For Injection 1 100ml.bag @ 100 mls/hr IVPB Q1H [facility] Rx#: [id number] Potassium Phosphate 10 125 mmol In Sodium Chloride 0 .9% 250 ml @ 125 mls/hr IV Q2H [facility] Rx#:[id number] Water For Injection, 1375 1125 Sterile 250 ml Empty Bag 1 bag @ Per Protocol IV . Q0M [facility] with Dextrose 50% -Water Vial 250 ml Rx#: [id number] Intake, IV Titration 916.445 515.691 Amount Clindamycin 300 mg In 50 Dextrose 5% in Water 50 ml @ 100 mls/hr IVPB Q8HR [facility] Rx#:[id number] Insulin Regular 300 unit 235.866 35.933 In Sodium Chloride 0.9% 100 ml @ 30 UNIT/HR 10.3 mls/hr IV .Q10H [facility] Rx#: [id number] Magnesium Sulfate-D5w Pmx 100 1 gm In Dextrose/Water 1 100ml.bag @ 100 mls/hr IVPB Q1H [facility] Rx#: [id number] Magnesium Sulfate-D5w Pmx 100 1 gm In Dextrose/Water 1 100ml.bag @ 100 mls/hr IVPB Q1H [facility] Rx#: [id number] Norepinephrin 4 mg-0.9% 146.375 Ns Pmx 4 mg In 250 ml @ Titrate IV .Q0M [facility] Rx#: [id number] Potassium Phosphate 10 250 250 mmol In Sodium Chloride 0 .9% 250 ml @ 125 mls/hr IV Q2H [facility] Rx#:[id number] Propofol 1,000 mg In 84.204 179.758 Empty Bag 1 bag @ Titrate IV .Q0M [facility] Rx#: [id number] Output: Gastric Drainage 150 Urine 1120 964 336 Emesis 550 Other: Voiding Method Indwelling Catheter Indwelling Catheter Indwelling Catheter # Voids 0 - Exam GENERAL EXAM: Patient is alert and oriented and doesn't appear to be in any acute distress HEENT: Normocephalic. Normal reaction of pupils, equal size, normal range of extraocular motion. No erythema or exudates in the throat. NECK: No masses, no nuchal rigidity. CHEST: No chest wall deformity. LUNGS: Equal air entry with no crackles or wheeze. HEART: S1 and S2 normal with no audible mumurs or gallops. Regular rhythm, femorals equal on both sides.. ABDOMEN: No hepatosplenomegaly, normal bowel sounds, no guarding or rigidity. SKIN: No rashes CENTRAL NERVOUS SYSTEM: No focal deficits. EXTREMITIES: No cyanosis, clubbing or edema. - Labs CBC & Chem 7: 09/29/17 04:42 09/29/17 09:19 Labs: Abnormal Lab Results - Last 24 Hours (Table) 09/28/17 09/28/17 09/28/17 Range/Units 10:58 11:30 12:07 WBC (3.8-10.6) k/uL RBC (3.80-5.40) m/uL Hgb (11.4-16.0) gm/dL Neutrophils # (1.3-7.7) k/uL ABG pCO2 (35-45) mmHg ABG pO2 (83-108) mmHg ABG HCO3 (21-25) mmol/L ABG O2 Saturation (94-97) % Potassium (3.5-5.1) mmol/L Chloride (98-107) mmol/L Carbon Dioxide (22-30) mmol/L BUN (7-17) mg/dL Glucose (74-99) mg/dL POC Glucose (mg/dL) 144 H 150 H 157 H (75-99) mg/dL Total Protein (6.3-8.2) g/dL Albumin (3.5-5.0) g/dL Urine Protein (Negative) Urine Glucose (UA) (Negative) 09/28/17 09/28/17 09/28/17 Range/Units 12:34 13:05 13:31 WBC (3.8-10.6) k/uL RBC (3.80-5.40) m/uL Hgb (11.4-16.0) gm/dL Neutrophils # (1.3-7.7) k/uL ABG pCO2 (35-45) mmHg ABG pO2 (83-108) mmHg ABG HCO3 (21-25) mmol/L ABG O2 Saturation (94-97) % Potassium (3.5-5.1) mmol/L Chloride (98-107) mmol/L Carbon Dioxide (22-30) mmol/L BUN (7-17) mg/dL Glucose (74-99) mg/dL POC Glucose (mg/dL) 135 H 142 H 125 H (75-99) mg/dL Total Protein (6.3-8.2) g/dL Albumin (3.5-5.0) g/dL Urine Protein (Negative) Urine Glucose (UA) (Negative) 09/28/17 09/28/17 09/28/17 Range/Units 14:02 14:05 14:35 WBC (3.8-10.6) k/uL RBC (3.80-5.40) m/uL Hgb (11.4-16.0) gm/dL Neutrophils # (1.3-7.7) k/uL ABG pCO2 (35-45) mmHg ABG pO2 (83-108) mmHg ABG HCO3 (21-25) mmol/L ABG O2 Saturation (94-97) % Potassium 3.4 L (3.5-5.1) mmol/L Chloride (98-107) mmol/L Carbon Dioxide (22-30) mmol/L BUN (7-17) mg/dL Glucose (74-99) mg/dL POC Glucose (mg/dL) 155 H 145 H (75-99) mg/dL Total Protein (6.3-8.2) g/dL Albumin (3.5-5.0) g/dL Urine Protein (Negative) Urine Glucose (UA) (Negative) 09/28/17 09/28/17 09/28/17 Range/Units 15:02 15:36 16:02 WBC (3.8-10.6) k/uL RBC (3.80-5.40) m/uL Hgb (11.4-16.0) gm/dL Neutrophils # (1.3-7.7) k/uL ABG pCO2 (35-45) mmHg ABG pO2 (83-108) mmHg ABG HCO3 (21-25) mmol/L ABG O2 Saturation (94-97) % Potassium (3.5-5.1) mmol/L Chloride (98-107) mmol/L Carbon Dioxide (22-30) mmol/L BUN (7-17) mg/dL Glucose (74-99) mg/dL POC Glucose (mg/dL) 162 H 151 H 150 H (75-99) mg/dL Total Protein (6.3-8.2) g/dL Albumin (3.5-5.0) g/dL Urine Protein (Negative) Urine Glucose (UA) (Negative) 09/28/17 09/28/17 09/28/17 Range/Units 16:30 17:03 17:34 WBC (3.8-10.6) k/uL RBC (3.80-5.40) m/uL Hgb (11.4-16.0) gm/dL Neutrophils # (1.3-7.7) k/uL ABG pCO2 (35-45) mmHg ABG pO2 (83-108) mmHg ABG HCO3 (21-25) mmol/L ABG O2 Saturation (94-97) % Potassium (3.5-5.1) mmol/L Chloride (98-107) mmol/L Carbon Dioxide (22-30) mmol/L BUN (7-17) mg/dL Glucose (74-99) mg/dL POC Glucose (mg/dL) 140 H 134 H 128 H (75-99) mg/dL Total Protein (6.3-8.2) g/dL Albumin (3.5-5.0) g/dL Urine Protein (Negative) Urine Glucose (UA) (Negative) 09/28/17 09/28/17 09/28/17 Range/Units 18:08 18:33 18:58 WBC (3.8-10.6) k/uL RBC (3.80-5.40) m/uL Hgb (11.4-16.0) gm/dL Neutrophils # (1.3-7.7) k/uL ABG pCO2 (35-45) mmHg ABG pO2 (83-108) mmHg ABG HCO3 (21-25) mmol/L ABG O2 Saturation (94-97) % Potassium (3.5-5.1) mmol/L Chloride (98-107) mmol/L Carbon Dioxide (22-30) mmol/L BUN (7-17) mg/dL Glucose (74-99) mg/dL POC Glucose (mg/dL) 116 H 109 H 109 H (75-99) mg/dL Total Protein (6.3-8.2) g/dL Albumin (3.5-5.0) g/dL Urine Protein (Negative) Urine Glucose (UA) (Negative) 09/28/17 09/28/17 09/28/17 Range/Units 19:31 20:08 20:33 WBC (3.8-10.6) k/uL RBC (3.80-5.40) m/uL Hgb (11.4-16.0) gm/dL Neutrophils # (1.3-7.7) k/uL ABG pCO2 (35-45) mmHg ABG pO2 (83-108) mmHg ABG HCO3 (21-25) mmol/L ABG O2 Saturation (94-97) % Potassium (3.5-5.1) mmol/L Chloride (98-107) mmol/L Carbon Dioxide (22-30) mmol/L BUN (7-17) mg/dL Glucose (74-99) mg/dL POC Glucose (mg/dL) 122 H 108 H 109 H (75-99) mg/dL Total Protein (6.3-8.2) g/dL Albumin (3.5-5.0) g/dL Urine Protein (Negative) Urine Glucose (UA) (Negative) 09/28/17 09/28/17 09/28/17 Range/Units 21:01 21:11 21:59 WBC (3.8-10.6) k/uL RBC (3.80-5.40) m/uL Hgb (11.4-16.0) gm/dL Neutrophils # (1.3-7.7) k/uL ABG pCO2 (35-45) mmHg ABG pO2 (83-108) mmHg ABG HCO3 (21-25) mmol/L ABG O2 Saturation (94-97) % Potassium 3.4 L (3.5-5.1) mmol/L Chloride (98-107) mmol/L Carbon Dioxide (22-30) mmol/L BUN (7-17) mg/dL Glucose (74-99) mg/dL POC Glucose (mg/dL) 114 H 121 H (75-99) mg/dL Total Protein (6.3-8.2) g/dL Albumin (3.5-5.0) g/dL Urine Protein (Negative) Urine Glucose (UA) (Negative) 09/28/17 09/28/17 09/28/17 Range/Units 22:31 22:31 23:03 WBC (3.8-10.6) k/uL RBC (3.80-5.40) m/uL Hgb (11.4-16.0) gm/dL Neutrophils # (1.3-7.7) k/uL ABG pCO2 (35-45) mmHg ABG pO2 (83-108) mmHg ABG HCO3 (21-25) mmol/L ABG O2 Saturation (94-97) % Potassium (3.5-5.1) mmol/L Chloride (98-107) mmol/L Carbon Dioxide (22-30) mmol/L BUN (7-17) mg/dL Glucose (74-99) mg/dL POC Glucose (mg/dL) 44 L 43 L 152 H (75-99) mg/dL Total Protein (6.3-8.2) g/dL Albumin (3.5-5.0) g/dL Urine Protein (Negative) Urine Glucose (UA) (Negative) 09/28/17 09/28/17 09/29/17 Range/Units 23:10 23:33 00:12 WBC (3.8-10.6) k/uL RBC (3.80-5.40) m/uL Hgb (11.4-16.0) gm/dL Neutrophils # (1.3-7.7) k/uL ABG pCO2 (35-45) mmHg ABG pO2 (83-108) mmHg ABG HCO3 (21-25) mmol/L ABG O2 Saturation (94-97) % Potassium (3.5-5.1) mmol/L Chloride (98-107) mmol/L Carbon Dioxide (22-30) mmol/L BUN (7-17) mg/dL Glucose (74-99) mg/dL POC Glucose (mg/dL) 127 H 118 H (75-99) mg/dL Total Protein (6.3-8.2) g/dL Albumin (3.5-5.0) g/dL Urine Protein Trace H (Negative) Urine Glucose (UA) Trace H (Negative) 09/29/17 09/29/17 09/29/17 Range/Units 00:44 00:59 01:37 WBC (3.8-10.6) k/uL RBC (3.80-5.40) m/uL Hgb (11.4-16.0) gm/dL Neutrophils # (1.3-7.7) k/uL ABG pCO2 (35-45) mmHg ABG pO2 (83-108) mmHg ABG HCO3 (21-25) mmol/L ABG O2 Saturation (94-97) % Potassium 3.4 L (3.5-5.1) mmol/L Chloride (98-107) mmol/L Carbon Dioxide (22-30) mmol/L BUN (7-17) mg/dL Glucose (74-99) mg/dL POC Glucose (mg/dL) 116 H 125 H (75-99) mg/dL Total Protein (6.3-8.2) g/dL Albumin (3.5-5.0) g/dL Urine Protein (Negative) Urine Glucose (UA) (Negative) 09/29/17 09/29/17 09/29/17 Range/Units 02:02 02:34 03:10 WBC (3.8-10.6) k/uL RBC (3.80-5.40) m/uL Hgb (11.4-16.0) gm/dL Neutrophils # (1.3-7.7) k/uL ABG pCO2 (35-45) mmHg ABG pO2 (83-108) mmHg ABG HCO3 (21-25) mmol/L ABG O2 Saturation (94-97) % Potassium (3.5-5.1) mmol/L Chloride (98-107) mmol/L Carbon Dioxide (22-30) mmol/L BUN (7-17) mg/dL Glucose (74-99) mg/dL POC Glucose (mg/dL) 125 H 139 H 160 H (75-99) mg/dL Total Protein (6.3-8.2) g/dL Albumin (3.5-5.0) g/dL Urine Protein (Negative) Urine Glucose (UA) (Negative) 09/29/17 09/29/17 09/29/17 Range/Units 03:36 03:55 04:42 WBC 12.4 H (3.8-10.6) k/uL RBC 3.62 L (3.80-5.40) m/uL Hgb 11.2 L (11.4-16.0) gm/dL Neutrophils # 10.3 H (1.3-7.7) k/uL ABG pCO2 34 L (35-45) mmHg ABG pO2 169 H (83-108) mmHg ABG HCO3 20 L (21-25) mmol/L ABG O2 Saturation 99.4 H (94-97) % Potassium (3.5-5.1) mmol/L Chloride (98-107) mmol/L Carbon Dioxide (22-30) mmol/L BUN (7-17) mg/dL Glucose (74-99) mg/dL POC Glucose (mg/dL) 185 H (75-99) mg/dL Total Protein (6.3-8.2) g/dL Albumin (3.5-5.0) g/dL Urine Protein (Negative) Urine Glucose (UA) (Negative) 09/29/17 09/29/17 09/29/17 Range/Units 04:42 05:01 05:31 WBC (3.8-10.6) k/uL RBC (3.80-5.40) m/uL Hgb (11.4-16.0) gm/dL Neutrophils # (1.3-7.7) k/uL ABG pCO2 (35-45) mmHg ABG pO2 (83-108) mmHg ABG HCO3 (21-25) mmol/L ABG O2 Saturation (94-97) % Potassium 3.3 L (3.5-5.1) mmol/L Chloride 112 H (98-107) mmol/L Carbon Dioxide 18 L (22-30) mmol/L BUN 4 L (7-17) mg/dL Glucose 184 H (74-99) mg/dL POC Glucose (mg/dL) 191 H 148 H (75-99) mg/dL Total Protein 5.2 L (6.3-8.2) g/dL Albumin 2.9 L (3.5-5.0) g/dL Urine Protein (Negative) Urine Glucose (UA) (Negative) 09/29/17 09/29/17 09/29/17 Range/Units 06:04 07:04 08:56 WBC (3.8-10.6) k/uL RBC (3.80-5.40) m/uL Hgb (11.4-16.0) gm/dL Neutrophils # (1.3-7.7) k/uL ABG pCO2 (35-45) mmHg ABG pO2 (83-108) mmHg ABG HCO3 (21-25) mmol/L ABG O2 Saturation (94-97) % Potassium (3.5-5.1) mmol/L Chloride (98-107) mmol/L Carbon Dioxide (22-30) mmol/L BUN (7-17) mg/dL Glucose (74-99) mg/dL POC Glucose (mg/dL) 142 H 126 H 117 H (75-99) mg/dL Total Protein (6.3-8.2) g/dL Albumin (3.5-5.0) g/dL Urine Protein (Negative) Urine Glucose (UA) (Negative) Microbiology - Last 24 Hours (Table) 09/28/17 23:10 Urine Culture - Preliminary Urine,Catheterized 09/28/17 05:15 Gram Stain - Preliminary Sputum Sputum Culture - Preliminary 09/28/17 01:45 Urine Culture - Preliminary Urine,Catheterized Assessment and Plan (1) History of hypertension Current Visit: Yes Status: Acute Code(s): Z86.79 - PERSONAL HISTORY OF OTHER DISEASES OF THE CIRCULATORY SYSTEM SNOMED Code(s): 178865660 (2) Calcium channel ranjana overdose Current Visit: Yes Status: Acute Code(s): T46.1X1A - POISONING BY CALCIUM- CHANNEL BLOCKERS, ACCIDENTAL, INIT SNOMED Code(s): 003210980 (3) Suicidal ideation Current Visit: Yes Status: Acute Code(s): R45.851 - SUICIDAL IDEATIONS SNOMED Code(s): 4474505 Plan: Patient is clinically stable. From Cardiac standpoint patient is maintaining sinus rhythm. Blood pressure symptoms. Adequate. We'll seeing her as needed
[2017-09-29 11:19] LABS: Hemoglobin A1C 5.3 % (4.0-6.0)
--- NOTE | 2017-09-29 13:09 | ECHOF ---
Referral Reason:Chest pain and cardiomyopathy MEASUREMENTS -------- HEIGHT: 170.2 cm WEIGHT: 64.4 kg BP: 100/61 IVSd: 0.7 cm (0.6 - 1.1) LVIDd: 4.9 cm (3.9 - 5.3) LVPWd: 1.0 cm (0.6 - 1.1) IVSs: 1.0 cm LVIDs: 3.5 cm LVPWs: 1.7 cm Ao Diam: 3.4 cm (2.0 - 3.7) AV Cusp: 2.1 cm (1.5 - 2.6) LA Diam: 3.1 cm (2.7 - 3.8) MV EXCURSION: 16.638 mm (> 18.000) MV EF SLOPE: 140 mm/s (70 - 150) EPSS: 0.6 cm RAP: 5.00 mmHg RVSP: 11.24 mmHg FINDINGS -------- Sinus rhythm. This was a technically good study. The left ventricular size is normal. Left ventricular wall thickness is normal. Overall left vent ricular systolic function is normal with, an EF between 55 - 60 %. The right ventricle is normal in size and function. The left atrium is normal in size. The right atrium is normal in size. The aortic valve is trileaflet, and appears structurally normal. No aortic stenosis or regurgitation. Mild mitral regurgitation is present. Trace tricuspid regurgitation present. The right ventricular systolic pressure, as measured by Dopp ler, is 11.24mmHg. Pulmonic valve appears structurally normal. The aortic root, ascending aorta and aortic arch are normal. Normal inferior vena cava with normal inspiratory collapse consistent with estimated right atrial pre ssure of 5 mmHg. The pericardium is normal. CONCLUSIONS -------- 1. Sinus rhythm. 2. This was a technically good study. 3. The left ventricular size is normal. 4. Left ventricular wall thickness is normal. 5. Overall left ventricular systolic function is normal with, an EF between 55 - 60 %. 6. The right ventricle is normal in size and function. 7. The left atrium is normal in size. 8. The right atrium is normal in size. 9. The aortic valve is trileaflet, and appears structurally normal. No aortic stenosis or regurgitati on. 10. Mild mitral regurgitation is present. 11. Trace tricuspid regurgitation present. 12. The right ventricular systolic pressure, as measured by Doppler, is 11.24mmHg. 13. Pulmonic valve appears structurally normal. 14. The aortic root, ascending aorta and aortic arch are normal. 15. Normal inferior vena cava with normal inspiratory collapse consistent with estimated right atrial pressure of 5 mmHg. 16. The pericardium is normal. DIE [employer]KER TRIM: Yamileth Mcmanus RDCS
--- NOTE | 2017-09-29 15:19 | US ---
EXAMINATION TYPE: US venous doppler duplex UE RT DATE OF EXAM: 09/29/2017 COMPARISON: NONE CLINICAL HISTORY: 31-year-old female rule out blood clot. Pt in ICU, having right arm swelling SIDE PERFORMED: Right FINDINGS: Right Arm: No evidence of DVT, +SVT within right cephalic vein mid upper arm to antecubital fossa/ Un able to follow cephalic to lower arm due to IV site IMPRESSION: 1. No evidence for DVT within the right upper extremity. 2. However, the exam is positive for right upper extremity SVT involving the cephalic vein from the m id arm down to the antecubital fossa. Unable to assess the cephalic vein lower down due to IV site.
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
[2017-09-29] MEDS ORDERED: ACETAMINOPHEN TAB 325 MG TAB PO PRN (17:30)
[2017-09-29] MEDS: NAPROXEN 250 MG TAB PO SCH (23:15)
[2017-09-29] MEDS: SODIUM BICARBONATE TAB 650 MG TAB PO SCH (23:39)
--- NOTE | 2017-09-30 00:21 | PN ---
PROGRESS NOTE DATE OF SERVICE: 09/29/2017 PRESENTING COMPLAINT: Overdose. INTERVAL HISTORY: This patient presented with overdose of verapamil, Neurontin, gabapentin and muscle relaxant. The patient is status post ventilator, awake today. Patient's mother and a friend are present. All the drips have been taken off. Patient ate a little bit. Right arm is a bit swollen. Ultrasound came back negative for DVT. Patient was seen by Psychiatry, who cleared the patient and the sitter. Patient's right arm was a little bit swollen and tender, found to have a superficial phlebitis/thrombosis. REVIEW OF SYSTEMS: Done for constitutional, cardiovascular, GI, pulmonary and psych. CURRENT MEDICATIONS: Reviewed. PHYSICAL EXAMINATION: Temperature afebrile, pulse 87, respiration 20, blood pressure 101/63, pulse ox 98%. GENERAL APPEARANCE: Lying in bed, awake, tired-appearing. EYES: Pupils equal. Conjunctivae normal. HEENT: External appearance of nose and ears normal. Oral cavity normal. NECK: JVD not raised. Mass not palpable. RESPIRATORY: Effort normal. LUNGS: Slightly decreased breath sounds. CARDIOVASCULAR: First and second sounds normal. No edema. ABDOMEN: Soft, non-tender. Liver and spleen not palpable. PSYCHIATRY: Alert and oriented x3. Mood and affect more perky. EXTREMITIES: Some tenderness and swelling in the right upper extremity. INVESTIGATIONS: White count 12.4, hemoglobin 11.2, potassium 3.3. Accu-Cheks are noted. Doppler ultrasound of the right upper extremity shows superficial thrombosis involving the cephalic vein. ASSESSMENT: 1. Acute overdose of verapamil, Neurontin, muscle relaxant causing severe bradycardia and bigeminy. 2. Unilateral kidney. 3. Anxiety and depression not otherwise specified. 4. Acute metabolic encephalopathy from above, now recovered. 5. Acute respiratory failure from central respiratory depression from medications, requiring ventilator assistance. 6. Severe hypophosphatemia. 7. Hypocalcemia. 8. Severe hypokalemia. 9. Metabolic acidosis. 10.Right upper extremity cephalic vein superficial thrombosis. 11.Borderline personality disorder; sitter discontinued per Psychiatry. Patient is felt not to be a candidate for inpatient psychiatric unit. PLAN: Will keep the right arm elevated and use a heating pad and ice pack alternating with the same. Patient was supplemented with calcium and phosphorus. Will add NSAIDs for anti-inflammatory effect in the right upper extremity. Care was discussed with the patient and family at the bedside. [facility] / IJN: [id number] /
[2017-09-30] MEDS: CLINDAMYCIN 300 MG in DEXTROSE 5% IN WATER 50 ML IVPB SCH ×4 (01:46→07:01)
[2017-09-30 05:15] LABS: Basophils % (A) 0 %; Eosinophils # (A) 0.1 k/uL (0-0.7); Eosinophils % (A) 1 %; HGB 10.2 gm/dL (11.4-16.0); Lymphocytes # (A) 1.2 k/uL (1.0-4.8); Lymphocytes % (A) 19 %; MCH 30.7 pg (25.0-35.0); MCHC 32.9 g/dL (31.0-37.0); MCV 93.4 fL (80.0-100.0); Monocytes # (A) 0.3 k/uL (0-1.0); Monocytes % (A) 5 %; Neutrophils # (A) 4.7 k/uL (1.3-7.7); Neutrophils % (A) 74 %; Platelet Count 136 k/uL (150-450); RBC 3.32 m/uL (3.80-5.40); RDW 13.2 % (11.5-15.5); WBC 6.4 k/uL (3.8-10.6)
[2017-09-30 05:46] LABS: Anion Gap 10 mmol/L; Blood Urea Nitrogen 6 mg/dL (7-17); Calcium 8.9 mg/dL (8.4-10.2); Carbon Dioxide 25 mmol/L (22-30); Chloride 109 mmol/L (98-107); Glucose 96 mg/dL (74-99); Magnesium 1.9 mg/dL (1.6-2.3); Phosphorus 2.9 mg/dL (2.5-4.5); Potassium 4.5 mmol/L (3.5-5.1); Sodium 144 mmol/L (137-145)
[2017-09-30] MEDS ORDERED: PANTOPRAZOLE 40 MG TABLET PO SCH (07:30)
--- NOTE | 2017-09-30 08:12 | P.PN ---
Subjective Progress Note Date: 09/30/17 Principal diagnosis: Overdose Progress note dated 09/30/2017 On 09/30/2017 patient seen in follow-up in intensive care unit. She has been successfully extubated at 5:00 on Friday morning and is currently on room air, with pulse ox at 98%, hemodynamically stable, no bradycardia, she is in sinus rhythm with a rate of 88-90 BPM, no hypotension, patient is nonoliguric, afebrile. Patient is answering questions appropriately, no evidence of neurologic deficits noted. Insulin drip has been on hold, IV D5W/0.9 infusing at a rate of 75 ML per hour. Today's lab work shows WBC of 6.4, hemoglobin of 10.2, serum sodium is 144, potassium is 34.5, chloride is 109, carbon dioxide is 25, BUN is 6 and creatinine 0.78. His chest x-ray has been reviewed and is normal. No acute complaints, she denies any chest pain, denies any dyspnea. At this point we will discontinue the high insulin infusion protocol in view of patient's hemodynamic stability, no evidence of bradycardiarrhythmias, we will increase the patient's activity as tolerated, provided incentive spirometry. Psychiatry has been consulted, brain mendez is at the bedside. She will have a 2 -D echocardiogram today, can be started on clear liquid diet at lunch. Urine and sputum cultures are pending at this time, patient remains on empiric antibiotics in the form of clindamycin. From pulmonary/critical care standpoint patient is stable for transfer out of intensive care today to regular general medical floor with a safety scientist in place. Objective - Vital Signs Vital signs: Vital Signs Temp 98.1 F 09/30/17 04:00 Pulse 72 09/30/17 07:00 Resp 11 L 09/30/17 07:00 BP 106/66 09/30/17 07:00 Pulse Ox 96 09/30/17 07:00 Intake & Output 09/29/17 09/30/17 09/30/17 18:59 06:59 18:59 Intake Total 370 900 Output Total 836 3 Balance -466 897 Weight 65 kg Intake: IV 295 825 .9 KVO 20 Dextrose 50%-Water Vial 75 825 250 ml In Empty Bag 1 bag In Water For Injection, Sterile 250 ml @ 75 mls/ hr IV CONTINUOUS [facility] Rx#: [id number] Magnesium Sulfate-D5w Pmx 100 1 gm In Dextrose/Water 1 100ml.bag @ 100 mls/hr IVPB Q1H [facility] Rx#: [id number] Potassium Chloride 10 meq 100 In Water For Injection 1 100ml.bag @ 100 mls/hr IVPB Q1H [facility] Rx#: [id number] Intake, IV Titration 75 75 Amount Dextrose 5%-0.9% NaCl 1, 75 75 000 ml @ 75 mls/hr IV . [id number] [facility] Rx#:[id number] Output: Urine 836 3 Other: Voiding Method Toilet Toilet # Voids 0 1 - Exam Physical Exam: Revealed a 31-year-old female in no distress, a bit lethargic, but easily arousable to verbal stimuli, responds appropriately, oriented 3 Head: Atraumatic, normocephalic. HEENT:[Neck is supple.] [No neck masses.] [No thyromegaly.] [No JVD.] Endotracheal tube is intact. Chest: [Clear throughout, no crackles, no rhonchi, no wheezes.] Cardiac Exam: [Normal S1 and S2, no S3 gallop, no murmur.] Abdomen: [Soft, nontender, no megaly, no rebound, no guarding, normal bowel sounds.] Extremities: [No clubbing, no edema, no cyanosis.] Neurological Exam: Arousable, no gross focal neurologic deficit. Psychiatric: Cannot be assessed. Lymphatics: No lymphadenopathy. Skin: Multiple tattoos noted throughout the whole body. - Labs CBC & Chem 7: 09/30/17 04:42 09/30/17 04:42 Labs: Abnormal Lab Results - Last 24 Hours (Table) 09/29/17 09/30/17 09/30/17 Range/Units 08:56 04:42 04:42 RBC 3.32 L (3.80-5.40) m/uL Hgb 10.2 L (11.4-16.0) gm/dL Hct 31.0 L (34.0-46.0) % Plt Count 136 L (150-450) k/uL Chloride 109 H (98-107) mmol/L BUN 6 L (7-17) mg/dL POC Glucose (mg/dL) 117 H (75-99) mg/dL Microbiology - Last 24 Hours (Table) 09/29/17 00:44 Blood Culture - Preliminary Blood No Growth after 24 hours 09/28/17 01:45 Urine Culture - Final Urine,Catheterized 09/28/17 23:10 Urine Culture - Preliminary Urine,Catheterized Assessment and Plan Assessment: Assessment: 1 acute hypoxic respiratory failure secondary to multiple drugs overdose including calcium channel blockers and gabapentin, recovered, patient was extubated this morning, and is currently on room air, tolerating extubation quite well. 2 profound bradycardia upon presentation secondary to calcium channel blockers overdose. And toxicity. Recovered, patient is currently in sinus rhythm, with a rate of 80-90 BPM, hemodynamically stable 3 depression, major affective disorder, and suicidal precaution, psychiatry consultation has been requested 4 history of hypertension., Fibromyalgia, chronic pain syndrome, osteoarthritis , hyperlipidemia, migraine cephalgia, chronic back pain. Plan: Plan dated 09/30/2017 The patient remains relatively stable. No further episodes of bradycardia and/ or hypotension. The patient has a good blood pressure at this time. Heart rate is normal. No respiratory issues. Is currently on room air. Receiving a dextrose and saline IV at 75 mL an hour. From my perspective the patient could be transferred to the general medical floor. She might even be considered for discharge from the hospital. We'll leave that up to the primary. Hopefully psychiatry is seeing her. She denies this being a suicide attempt. Additional recommendations and suggestions are forthcoming. The patient should have acidophil discharge. Critical care time 31 minutes Time with Patient: Greater than 30
[2017-09-30] MEDS: ENOXAPARIN 40 MG/0.4 ML SYRINGE SQ SCH (09:08)
[2017-09-30] MEDS: NAPROXEN 250 MG TAB PO SCH (09:09)
[2017-09-30] MEDS: SODIUM BICARBONATE TAB 650 MG TAB PO SCH (09:09)
[2017-09-30] MEDS: DEXTROSE 5%-0.9% NACL 1,000 ML IV SCH (13:00)
[2017-09-30 15:02] VITALS: BP 113/74; PULSE 76; RESP 16; TEMP 98.7
--- NOTE | 2017-10-01 06:25 | DS ---
DISCHARGE SUMMARY DATE OF ADMISSION: 09/27/2017. DISCHARGE: September 30, 2017. FINAL DIAGNOSE: 1. Acute overdose with verapamil, Neurontin, muscle relaxant causing severe bradycardia and bigeminy. 2. Unilateral kidney. 3. Anxiety and depression, not otherwise specified. 4. Acute metabolic encephalopathy from medications, present on admission. 5. Acute respiratory failure from central respiratory depression from medications requiring ventilator assistance. 6. Severe hypophosphatemia. 7. Hypocalcemia. 8. Severe hypokalemia. 9. Metabolic acidosis. 10.Right upper extremity cephalic vein superficial thrombosis. 11.Borderline personality disorder. 12.Aspiration pneumonitis from altered mental status. The patient to follow up with [facility] and with a family doctor. CONSULTATION: Dr. Avilez from psychiatry, Dr. Gavin from Critical Care. HOSPITAL COURSE: This patient took an overdose of the above medications, became severe bradycardic. Poison Control got involved. They put the patient on dextrose and insulin drip. The patient was in the ICU on the ventilator, was successfully extubated. Today patient is up and about. The patient has slight swelling of the right upper extremity, getting better with NSAIDs. Did show some superficial thrombophlebitis. Per Dr. Avilez the patient's antipsychotics that is Celexa was discontinued after nurse spoke to the unit today. Also patient's Neurontin was discontinued. The patient has been following with Dr. Tipton of the Pain Management. Has a pain pump that has been empty. The patient's mother was present at the time of discharge. DISCHARGE MEDICATIONS: 1. Verapamil ER 120 mg a day. 2. Zanaflex 4 mg p.o. t.i.d. p.r.n. 3. Valtrex 5 mg p.o. b.i.d. 4. Clindamycin 300 mg q.6. 5. Naproxen 250 mg p.o. b.i.d., 20 tablets. 6. Prilosec 20 mg with breakfast. PHYSICAL EXAMINATION: Lungs are clear. Cardiovascular: 1st and second sounds normal. Psych: AO x3. Mood and affect normal. MMODL / IJN: [id number] /
== END 2017-09-30 16:10 | disposition home or self-care (01) | DRG 917 ==
LOC: EC 15:49 → 6ICU 17:47
PROVIDERS: ADMIT Hospitalist; ATTEND Hospitalist
PROC: 5A1945Z Respiratory Ventilation, 24-96 Consecutive Hours (ICD-10-PCS; principal; 2017-09-25)
PROC: 0BH17EZ Insertion of Endotracheal Airway into Trachea, Via Natural or Artificial Opening (ICD-10-PCS; 2017-09-25)
DX: T46.1X2A Poisoning by calcium-channel blockers, intentional self-harm, initial encounter (principal); G93.41 Metabolic encephalopathy; J96.01 Acute respiratory failure with hypoxia; Q60.0 Renal agenesis, unilateral; E87.2 Acidosis; I82.611 Acute embolism and thrombosis of superficial veins of right upper extremity; R45.851 Suicidal ideations; G93.89 Other specified disorders of brain; E87.8 Other disorders of electrolyte and fluid balance, not elsewhere classified; I80.8 Phlebitis and thrombophlebitis of other sites; E83.39 Other disorders of phosphorus metabolism; E87.6 Hypokalemia; T48.202A Poisoning by unspecified drugs acting on muscles, intentional self-harm, initial encounter; T42.6X2A Poisoning by other antiepileptic and sedative-hypnotic drugs, intentional self-harm, initial encounter; I49.3 Ventricular premature depolarization; R00.1 Bradycardia, unspecified; E78.5 Hyperlipidemia, unspecified; I10 Essential (primary) hypertension; G89.4 Chronic pain syndrome; M47.816 Spondylosis without myelopathy or radiculopathy, lumbar region; M79.7 Fibromyalgia; M19.91 Primary osteoarthritis, unspecified site; G43.909 Migraine, unspecified, not intractable, without status migrainosus; M25.519 Pain in unspecified shoulder; F32.9 Major depressive disorder, single episode, unspecified; F60.3 Borderline personality disorder; F41.9 Anxiety disorder, unspecified; F17.210 Nicotine dependence, cigarettes, uncomplicated; Z71.6 Tobacco abuse counseling; Z79.899 Other long term (current) drug therapy; Z91.5 Personal history of self-harm; Z98.51 Tubal ligation status; Z97.8 Presence of other specified devices
CPT/HCPCS: 31500; 36415; 36600; 43753; 71045; 80048; 80053; 80306; 80320; 81003; 81025; 82330; 82550; 82553; 82805; 83036; 83520; 83605; 83735; 84100; 84132; 84484; 85025; 85610; 87040; 87070; 87086; 87205; 93005; 93306; 94002; 94003; 96361; 96374; 96375; 99291

== ENCOUNTER → 2017-10-23 | Outpatient (CLI) | payer OTHER ==
--- NOTE | 2017-10-23 12:42 | CT ---
EXAMINATION TYPE: CT lumbar spine wo con DATE OF EXAM: 10/23/2017 12:27 PM COMPARISON: 06/06/2014 HISTORY: Back pain CT DLP: 361.5 mGycm Automated exposure control for dose reduction was used. TECHNIQUE: Unenhanced CT of the lumbar spine was performed. Bone and soft tissue window settings are submitted as well as coronal and sagittal reconstructions. FINDINGS: The vertebral bodies of the lumbar spine maintain normal vertebral body heights and alignme nt. No scoliosis is identified. No acute fracture. Sacroiliac joints are symmetric. Lung bases are we ll aerated. Right kidney is remarkably atrophic. There is a punctate nonobstructing 1 to 2 mm left mi dpole renal calculus. There is partial visualization of a subcutaneous pain pump. L1-L2: Normal disc space height. No disc herniation protrusion or central stenosis. No facet joint arthropathy. No evidence for foraminal encroachment. L2-L3: There is a small broad-based disc bulge without significant neural foraminal narrowing or spin al canal stenosis. L3-L4: There is a broad-based disc bulge, additionally there is a focal outpouching right paracentral ly representing a small superimposed right paracentral disc herniation. There is resultant mild spina l canal stenosis and minimal bilateral neural foraminal narrowing. L4-L5: There is a focal central disc herniation, as seen on the prior exam creating mild spinal canal stenosis and mild bilateral neural foraminal narrowing in combination with a broad-based disc bulge. L5-S1: There is a central disc herniation extending left paracentrally in intracranial fashion to ext end into the left neural foramen and lateral recess creating impression on the exiting L5 nerve root on the left and severe left lateral recess and proximal neural foraminal narrowing as well as abuttin g the ventral thecal sac. Right neuroforamen appears patent. This has progressed from the prior exam. IMPRESSION: 1. Central disc herniation at L5-S1 extending left paracentrally with cranial extrusion to extend int o the lateral recess and proximal left neural foramen creating severe proximal left neural foraminal narrowing impinging on the exiting L5 nerve root. 2. Redemonstration of a known central disc herniation at L4-L5 creating mild spinal canal stenosis in combination with degenerative change also creating mild bilateral neural foraminal narrowing. 3. Mild degenerative disc disease at L2-L4 resulting in mild spinal canal stenosis at L3-L4. MRI coul d more accurately assess these findings. 4. Punctate nonobstructing left renal calculus.
== END | disposition home or self-care (01) ==
LOC: RADCTMAIN 08:01
PROVIDERS: ATTEND Psychiatry & Neurology Neurology
DX: M48.061 Spinal stenosis, lumbar region without neurogenic claudication (principal); M99.73 Connective tissue and disc stenosis of intervertebral foramina of lumbar region; M51.27 Other intervertebral disc displacement, lumbosacral region; M51.36 Other intervertebral disc degeneration, lumbar region; M47.816 Spondylosis without myelopathy or radiculopathy, lumbar region
CPT/HCPCS: 72131

== ENCOUNTER → 2018-02-11 | Outpatient (CLI) | payer OTHER ==
--- NOTE | 2018-02-11 11:51 | CT ---
EXAMINATION TYPE: CT shoulder LT wo con DATE OF EXAM: 02/11/2018 COMPARISON: None HISTORY: Bilateral shoulder pain with decreased range of motion and pain radiating into the neck CT DLP: 262.2 mGycm Automated exposure control for dose reduction was used. Imaging is performed in the axial plane. Joce nstructed images in the coronal and sagittal plane are reviewed. FINDINGS: Humeral head articulates with the glenoid. Small bone island is within the humeral head. No acute fra ctures are evident. Acromioclavicular junction appears normal. The rotator cuff appears grossly frida l as visualized. Portions of the lungs within the [id number] are clear. No suspicious soft tissue abnormality is evident. IMPRESSION: CT LEFT SHOULDER APPEARS NORMAL.
--- NOTE | 2018-02-11 12:27 | CT ---
EXAMINATION TYPE: CT shoulder RT wo con DATE OF EXAM: 02/11/2018 COMPARISON: None HISTORY: Bilateral shoulder pain with decreased range of motion and pain radiating into the neck CT DLP: 262.2 mGycm Automated exposure control for dose reduction was used. FINDINGS: Humeral head articulates with the glenoid. No acute fractures are evident. Acromioclavicular junction appears normal. The rotator cuff appears grossly normal as visualized. Portions of the lungs within the [id number] are clear. No suspicious soft tissue abnormality is evident. IMPRESSION: CT RIGHT SHOULDER APPEARS NORMAL.
== END ==
LOC: RADCTMAIN 08:17
PROVIDERS: ATTEND Psychiatry & Neurology Neurology
DX: M25.511 Pain in right shoulder (principal); M25.512 Pain in left shoulder

== ENCOUNTER → 2018-04-07 | Outpatient (CLI) | payer OTHER ==
[2018-04-07 17:35] LABS: T4, Free (Free Thyroxine) 0.6 ng/dL (0.80-1.80)
[2018-04-07 18:24] LABS: Lithium 0.8 mmol/L (1.0-1.2)
== END | disposition home or self-care (01) ==
LOC: LABWHC1 08:03
PROVIDERS: ATTEND Psychiatry & Neurology Psychiatry
DX: Z51.81 Encounter for therapeutic drug level monitoring (principal); Z79.899 Other long term (current) drug therapy
CPT/HCPCS: 36415; 80178; 82565; 84439; 84443; 84520

== ENCOUNTER → 2018-08-24 | Outpatient (CLI) | payer OTHER ==
[2018-08-24 07:44] LABS: Anion Gap 5 mmol/L; Blood Urea Nitrogen 11 mg/dL (7-17); Calcium 9.7 mg/dL (8.4-10.2); Carbon Dioxide 27 mmol/L (22-30); Chloride 109 mmol/L (98-107); Cholesterol 165 mg/dL (<200); Glucose 92 mg/dL (74-99); HDL Cholesterol 52 mg/dL (40-60); LDL Cholesterol,Calculated 86 mg/dL (0-99); Potassium 4.4 mmol/L (3.5-5.1); Sodium 141 mmol/L (137-145); Triglycerides 133 mg/dL (<150)
[2018-08-24 08:24] LABS: Lithium 0.9 mmol/L
--- NOTE | 2018-08-24 10:40 | CT ---
EXAMINATION TYPE: CT abdomen pelvis w con DATE OF EXAM: 08/24/2018 HISTORY: Vaginal mass CT DLP: 779mGycm Automated Exposure Control for Dose Reduction was Utilized. CONTRAST: CT scan of the abdomen and pelvis is performed with IV Contrast, patient injected with 100 ml mL of I sovue 300. COMPARISON: CT abdomen and pelvis June 06, 2014 FINDINGS: LUNG BASES: No significant abnormality is appreciated. LIVER/GB: No significant abnormality is appreciated. PANCREAS: No significant abnormality is seen. SPLEEN: No significant abnormality is seen. ADRENALS: No significant abnormality is seen. KIDNEYS: Endstage atrophy right kidney redemonstrated. BOWEL: Oral contrast reaches level of the distal transverse colon. There is no suspicious small or la rge bowel dilatation. Normal-appearing appendix seen from base of cecum. UTERUS/ADNEXA: Uterus is not well-visualized and suspected surgically absent. In the pelvis posterior ly just right of midline there is oval anechoic 4.4 x 3.6 cm lesion. Cervix and vagina appear grossly within normal limits. No free fluid in pelvis. Occasional scattered pelvic phlebolith is seen. LYMPH NODES: No greater than 1cm abdominal or pelvic lymph nodes are appreciated. OSSEOUS STRUCTURES: Moderate disc space narrowing lumbosacral junction is present. Disc herniations i dentified L3-L4 and L4-L5 level on sagittal images.. OTHER: Anterior left mid abdominal pain pump noted with adjacent streak artifact. IMPRESSION: Nonspecific 4.4 cm pelvic lesion presumed of right ovarian etiology can be better evaluat ed and characterized with pelvic ultrasound. No suspicious mass or adenopathy otherwise is evident.
== END | disposition home or self-care (01) ==
LOC: RADCTMAIN 06:58
PROVIDERS: ATTEND Obstetrics & Gynecology
DX: R19.00 Intra-abdominal and pelvic swelling, mass and lump, unspecified site (principal)
CPT/HCPCS: 80061; 80048; 80178; 74177; 36415; Q9967

== ENCOUNTER → 2018-09-14 | Outpatient (CLI) | payer OTHER ==
[2018-09-14 16:36] LABS: Lithium 1.2 mmol/L (1.0-1.2)
[2018-09-14 16:37] LABS: Anion Gap 5.6 mmol/L (4.00-12.00); Calcium 10.2 mg/dL (8.7-10.3); Carbon Dioxide 25.4 mmol/L (21.6-31.8); Potassium 4.3 mmol/L (3.5-5.5)
[2018-09-14 16:53] LABS: T4, Free (Free Thyroxine) 0.8 ng/dL (0.80-1.80)
[2018-09-14 21:16] LABS: Total Protein,CSF 59 mg/dL (12-60)
[2018-09-14 21:28] LABS: Appearance,CSF Clear; CSF Tube Number 4; CSF Tube Volume 2.5; Nucleated Cells, CSF 0 u/L (0-5); Red Blood Cell,CSF 0 u/L (0-10)
== END | disposition home or self-care (01) ==
LOC: LABWHC1 08:46
PROVIDERS: ATTEND Psychiatry & Neurology Neurology
DX: F32.1 Major depressive disorder, single episode, moderate (principal); R42 Dizziness and giddiness; R53.83 Other fatigue; R41.3 Other amnesia; R51 Headache; F41.1 Generalized anxiety disorder; H53.8 Other visual disturbances
CPT/HCPCS: 36415; 80048; 80178; 82040; 82042; 82784; 83873; 83916; 84157; 84439; 84443; 87801; 89050

== ENCOUNTER → 2018-10-21 | Outpatient (CLI) | payer OTHER ==
[2018-10-21 12:33] LABS: Basophils % (A) 0 %; Eosinophils # (A) 0.1 k/uL (0-0.7); Eosinophils % (A) 1 %; HCT 39.3 % (34.0-46.0); HGB 12.7 gm/dL (11.4-16.0); Lymphocytes # (A) 1.2 k/uL (1.0-4.8); Lymphocytes % (A) 12 %; MCH 32.8 pg (25.0-35.0); MCHC 32.3 g/dL (31.0-37.0); MCV 101.5 fL (80.0-100.0); Macrocytosis Slight; Mean Platelet Volume 8.1; Monocytes # (A) 0.4 k/uL (0-1.0); Monocytes % (A) 4 %; Neutrophils # (A) 8.2 k/uL (1.3-7.7); Neutrophils % (A) 81 %; Platelet Count 287 k/uL (150-450); RBC 3.87 m/uL (3.80-5.40); WBC 10.1 k/uL (3.8-10.6)
[2018-10-21 19:01] LABS: Folate, Serum 4.4 ng/mL; Vitamin D 25 Hydroxy 45.7 ng/mL (30.0-100.0)
[2018-10-21 19:06] LABS: African American GFR (CKD) 68.3 (60.0-200.0); Albumin 4.5 g/dL (3.80-4.90); Albumin/Globulin Ratio 2.25 (1.60-3.17); Anion Gap 2.8 mmol/L (4.00-12.00); BUN/Creat Ratio 6.67 Ratio (12.00-20.00); Calcium 9.6 mg/dL (8.7-10.3); Carbon Dioxide 26.2 mmol/L (21.6-31.8); LDL Cholesterol,Calculated 101.2 mg/dL (0.0-131.0); Magnesium 2.3 mg/dL (1.5-2.4); Potassium 4.2 mmol/L (3.5-5.5); Total Bilirubin 0.3 mg/dL (0.3-1.2); Total Protein 6.5 g/dL (6.2-8.2); VLDL Calculation 18.8 mg/dL (5.00-40.00)
[2018-10-21 19:35] LABS: T4, Free (Free Thyroxine) 0.8 ng/dL (0.80-1.80)
[2018-10-21 21:24] LABS: Hemoglobin A1C 4.9 % (4.0-6.0)
[2018-10-23 09:28] LABS: Vitamin E (Alpha Tocopherol) 763 ug/dL (500-1800)
[2018-10-23 09:42] LABS: Vit B1(Thiamine) 67 ug/L (38-122)
== END | disposition home or self-care (01) ==
LOC: LABWHC1 11:30
PROVIDERS: ATTEND Physician Assistant
DX: F32.1 Major depressive disorder, single episode, moderate (principal); G89.4 Chronic pain syndrome; Z79.899 Other long term (current) drug therapy
CPT/HCPCS: 36415; 80053; 80061; 80178; 82306; 82550; 82607; 82746; 83036; 83519; 83735; 84207; 84425; 84439; 84443; 84446; 84590; 84591; 84597; 85025

== ENCOUNTER → 2019-03-24 | Outpatient (CLI) | payer OTHER ==
--- NOTE | 2019-03-24 11:24 | XR ---
EXAM TYPE: LUMBAR SPINE X RAY SERIES COMPARISON: NONE HISTORY: Pain TECHNIQUE: 4 views are submitted. FINDINGS: Alignment is anatomic. The pedicles are intact. The transverse processes are intact. There is no s pondylolisthesis. Multilevel facet arthropathy. Degenerative disc disease L4-5 and L5 IMPRESSION: 1. Facet arthropathy and degenerative disc disease involving the lower lumbar spine with most marked findings at L5-S1.
--- NOTE | 2019-03-24 11:25 | XR ---
EXAMINATION TYPE: XR thoracic spine complete DATE OF EXAM: 03/24/2019 COMPARISON: NONE HISTORY: Pain Alignment is anatomic. There is no compression deformities. Vertebral body height and disc interspa sage are maintained. Subtle curvature of the spine. IMPRESSION: 1. No acute abnormality.
== END ==
LOC: RADXRMAIN 10:52
PROVIDERS: ATTEND Psychiatry & Neurology Pain Medicine
DX: M51.36 Other intervertebral disc degeneration, lumbar region (principal); M46.96 Unspecified inflammatory spondylopathy, lumbar region; M51.37 Other intervertebral disc degeneration, lumbosacral region; M46.97 Unspecified inflammatory spondylopathy, lumbosacral region; M54.6 Pain in thoracic spine
CPT/HCPCS: 72072; 72100

== ENCOUNTER 2019-03-30 20:02 | Emergency (ER) | payer OTHER ==
[2019-03-30 20:06] VITALS: BP 133/82; PULSE 67; RESP 20; TEMP 98.4
[2019-03-30] MEDS ORDERED: KETOROLAC 30 MG/ML 1 ML VIAL IM STA (20:20)
--- NOTE | 2019-03-30 20:25 | ED ---
General Adult HPI - General Chief complaint: Extremity Injury, Lower Stated complaint: L foot & ankle are swollen Time Seen by Provider: 03/30/19 20:07 Source: patient, RN notes reviewed Mode of arrival: ambulatory Limitations: no limitations - History of Present Illness Initial comments: 33-year-old female with a past medical history of diabetes mellitus, fibromyalgia, hyperlipidemia, hypertension, cervical cancer with hysterectomy presents to the emergency department for left foot and ankle pain. Patient had an EMG completed 2 days ago. States this was done around 9 in the morning. States that around mid afternoon she started pain in the left foot and ankle. States that this continued. She did try to follow up with neurologist Dr. Tipton but was not able to get ahold of him. Patient is able to ambulate. She denies any injuries. She denies any calf pain or swelling. Denies any history of blood clots. Patient has no other complaints at this time including shortness of breath, chest pain, abdominal pain, nausea or vomiting, headache, or visual changes. - Related Data Home Medications Medication Instructions Recorded Confirmed Verapamil HCl [Verapamil ER] 120 mg PO DAILY 04/08/17 09/28/17 tiZANidine [Zanaflex] 4 mg PO TID PRN 09/28/17 09/28/17 valACYclovir [Valtrex] 500 mg PO BID 09/28/17 09/28/17 Previous Rx's Medication Instructions Recorded Clindamycin [Cleocin] 300 mg PO Q6H #12 capsule 09/30/17 Naproxen [Naprosyn] 250 mg PO BID #20 tab 09/30/17 Omeprazole [PriLOSEC] 20 mg PO AC-BRKFST #30 cap 09/30/17 Allergies Allergy/AdvReac Type Severity Reaction Status Date / Time No Known Allergies Allergy Verified 03/30/19 20:06 Review of Systems ROS Statement: Those systems with pertinent positive or pertinent negative responses have been documented in the HPI. ROS Other: All systems not noted in ROS Statement are negative. Past Medical History Past Medical History: Cancer, Diabetes Mellitus, Fibromyalgia, Hyperlipidemia, Hypertension, Osteoarthritis (OA) Additional Past Medical History / Comment(s): cervical cancer, migraines, lower back pain, degenerative disk, bulging disc, DERMAL PIERCING LEFT CHEEK. 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) History of Any Multi-Drug Resistant Organisms: None Reported Past Surgical History: Back Surgery, Hernia Repair, Hysterectomy, Tubal Ligation Additional Past Surgical History / Comment(s): D & C, UMBILICAL HERNIA REPAIR, Past Anesthesia/Blood Transfusion Reactions: No Reported Reaction Past Psychological History: Anxiety, Depression Smoking Status: Current every day smoker Past Alcohol Use History: None Reported Past Drug Use History: None Reported - Past Family History Mother Family Medical History: No Reported History General Exam Limitations: no limitations General appearance: alert, in no apparent distress Head exam: Present: atraumatic, normocephalic, normal inspection Eye exam: Present: normal appearance ENT exam: Present: normal exam, mucous membranes moist Neck exam: Present: normal inspection. Absent: tenderness, meningismus, lymphadenopathy Respiratory exam: Present: normal lung sounds bilaterally. Absent: respiratory distress, wheezes, rales, rhonchi, stridor Cardiovascular Exam: Present: regular rate, normal rhythm, normal heart sounds. Absent: systolic murmur, diastolic murmur, rubs, gallop, clicks Extremities exam: Present: tenderness (She does have some tenderness to the mid dorsal left foot. No ankle tenderness including the medial or lateral malleolus.), normal capillary refill (Capillary refill less than 2 seconds, DP pulse 2+ in the left lower extremity.), other (Sensation intact in the left lower extremity. Patient relates of diminished sensation however states this is chronic from her fibromyalgia.). Absent: full ROM (Patient has decreased dorsiflexion of the left ankle but she states this is chronic due to her fibromyalgia.), pedal edema, joint swelling (Is minimal nonpitting edema noted of the ankle joint. There is no erythema or increased warmth indicative of infection.), calf tenderness (No calf tenderness, no erythema or swelling of the calf.) Course Vital Signs 03/30/19 20:04 Temperature 98.4 F Pulse Rate 67 Respiratory 20 Rate Blood Pressure 133/82 O2 Sat by Pulse 99 Oximetry Medical Decision Making - Medical Decision Making X-ray of the left foot is negative. X-ray of the left ankle is negative. Patient's mild edema may be simply secondary to post-emg procedure symptoms. This time I do not see any evidence of infection. There is no redness. There is no swelling of the calf. I recommend Rice therapy. Patient was wrapped with an Roberto wrap. Patient is seeing her neurologist again in 3 days. If she has any worsening symptoms or for then she will return here. Otherwise she will attend her appointment. She does agree to try to get an earlier appointment as well. Disposition Clinical Impression: Foot pain, left Disposition: HOME SELF-CARE Condition: Good Instructions (If sedation given, give patient instructions): Foot Contusion (ED) Additional Instructions: Please rest ice and elevate the left foot. Take Motrin and Tylenol for pain. Use Roberto wrap as needed. Follow-up with your neurologist as soon as you can. Return to the emergency department if you have any worsening symptoms. Is patient prescribed a controlled substance at d/c from ED?: No Referrals: Sudheer Tipton MD [Medical Doctor] - 1-2 days Josefina Iqbal MD [REFERRING] - 1-2 days Time of Disposition: 21:30
--- NOTE | 2019-03-30 21:03 | XR ---
EXAMINATION TYPE: XR ankle complete LT DATE OF EXAM: 03/30/2019 COMPARISON: NONE HISTORY: Ankle pain TECHNIQUE: 3 views FINDINGS: I see no fracture nor dislocation. Joint spaces are normal. Ankle mortise is anatomic. IMPRESSION: Negative left ankle exam.
--- NOTE | 2019-03-30 21:05 | XR ---
EXAMINATION TYPE: XR foot complete LT DATE OF EXAM: 03/30/2019 COMPARISON: NONE HISTORY: Foot pain TECHNIQUE: 3 views FINDINGS: Metatarsals are intact. I see no fracture nor dislocation. Joint spaces are normal. IMPRESSION: Negative left foot exam.
== END 2019-03-30 21:40 | disposition home or self-care (01) ==
LOC: EC 20:02
DX: M79.672 Pain in left foot (principal); R60.0 Localized edema; M79.7 Fibromyalgia; M25.572 Pain in left ankle and joints of left foot; I10 Essential (primary) hypertension; Q60.0 Renal agenesis, unilateral; F17.200 Nicotine dependence, unspecified, uncomplicated; Z79.899 Other long term (current) drug therapy; Z85.41 Personal history of malignant neoplasm of cervix uteri; Z87.39 Personal history of other diseases of the musculoskeletal system and connective tissue; Z90.710 Acquired absence of both cervix and uterus
CPT/HCPCS: 73610; 73630; 99283; 96372; J1885

== ENCOUNTER → 2019-03-30 | Outpatient (CLI) | payer OTHER ==
--- NOTE | 2019-03-30 08:58 | CT ---
EXAMINATION TYPE: CT knee LT wo con DATE OF EXAM: 03/30/2019 COMPARISON: None HISTORY: Lt knee pain CT DLP: 454.3 mGycm Automated exposure control for dose reduction was used. Unenhanced CT of the left knee was performed with bone and soft tissue window settings submitted. Review reconstruction is obtained at a separate workstation. FINDINGS: I do not see evidence for fracture or dislocation. No osseous lesions are detected. No evidence for s oft tissue mass. No Meadows's cyst or free fluid. The joint spaces are well preserved. Please note liga mentous and tendinous structures are best evaluated with the MRI. IMPRESSION: NO DISTINCT ABNORMALITY IDENTIFIED. Consider MRI if felt to be indicated.
== END | disposition home or self-care (01) ==
LOC: RADCTMAIN 08:31
PROVIDERS: ATTEND Psychiatry & Neurology Neurology
DX: M25.562 Pain in left knee (principal)

== ENCOUNTER 2019-07-13 12:35 | Emergency (ER) | payer OTHER ==
[2019-07-13 12:40] VITALS: TEMP 97.8
[2019-07-13] MEDS ORDERED: ASPIRIN 81 MG PO STA (12:50)
--- NOTE | 2019-07-13 13:23 | ED ---
Chest Pain HPI - General Chief Complaint: Chest Pain Stated Complaint: Chest pain Time Seen by Provider: 07/13/19 12:43 Source: patient, RN notes reviewed Mode of arrival: ambulatory Limitations: no limitations - History of Present Illness Initial Comments: This a 33-year-old female presents emergency Department chief complaint of left- sided chest pain. Patient states that started this morning on a.m. of sudden onset of pain. Patient states does hurt to twist and bend take a deep breath. Patient states that she does not feel short of breath at this time. Patient states that she was told that she used to have high blood pressure and cholesterol problems. She is also states that she's had some diabetic issues but not on any medications for this. She does take lithium and primidone. Patient states that her grandmother chronic disease along with her and having stents placed. Patient is a smoker. No history of lung disease. Denies any nausea vomiting no complaints of abdominal pain including GERD type symptoms. - Related Data Home Medications Medication Instructions Recorded Confirmed Verapamil HCl [Verapamil ER] 120 mg PO DAILY 04/08/17 09/28/17 tiZANidine [Zanaflex] 4 mg PO TID PRN 09/28/17 09/28/17 valACYclovir [Valtrex] 500 mg PO BID 09/28/17 09/28/17 Previous Rx's Medication Instructions Recorded Clindamycin [Cleocin] 300 mg PO Q6H #12 capsule 09/30/17 Naproxen [Naprosyn] 250 mg PO BID #20 tab 09/30/17 Omeprazole [PriLOSEC] 20 mg PO AC-BRKFST #30 cap 09/30/17 Naproxen 500 mg PO BID #20 tablet 07/13/19 Allergies Allergy/AdvReac Type Severity Reaction Status Date / Time No Known Allergies Allergy Verified 07/13/19 12:39 Review of Systems ROS Statement: Those systems with pertinent positive or pertinent negative responses have been documented in the HPI. ROS Other: All systems not noted in ROS Statement are negative. EKG Findings - EKG Comments: EKG Findings:: EKG performed at 13:01 normal sinus rhythm rate of 73 HI 192 QRS 84 QT status QTC 432/[address] elevation or depression - EKG Results: EKG: interpreted by YENIFER Past Medical History Past Medical History: Cancer, Diabetes Mellitus, Fibromyalgia, Hyperlipidemia, Hypertension, Osteoarthritis (OA) Additional Past Medical History / Comment(s): cervical cancer, migraines, lower back pain, degenerative disk, bulging disc, DERMAL PIERCING LEFT CHEEK. 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) History of Any Multi-Drug Resistant Organisms: None Reported Past Surgical History: Back Surgery, Hernia Repair, Hysterectomy, Tubal Ligation Additional Past Surgical History / Comment(s): D & C, UMBILICAL HERNIA REPAIR, Past Anesthesia/Blood Transfusion Reactions: No Reported Reaction Past Psychological History: Anxiety, Depression Smoking Status: Current every day smoker Past Alcohol Use History: None Reported Past Drug Use History: None Reported - Past Family History Mother Family Medical History: No Reported History General Exam Limitations: no limitations Course Vital Signs 07/13/19 07/13/19 12:38 14:12 Temperature 97.8 F Pulse Rate 63 62 Respiratory 16 18 Rate Blood Pressure 121/82 125/85 O2 Sat by Pulse 100 99 Oximetry Chest Pain MDM - MDM 33-year-old female presents emergency from for left-sided rib, chest pain. This is reproducible pain this time. She does have pain with deep inspiration labs, EKG and chest x-ray reviewed unremarkable. Patient has no significant past medical history for cardiac disease. Patient we discharged with anti- inflammatories, follow with PCP and cardiology. Return parameters discussed. Disposition Clinical Impression: Chest wall pain, Pleurisy, Costochondritis Disposition: HOME SELF-CARE Condition: Stable Instructions (If sedation given, give patient instructions): Chest Pain (ED) Additional Instructions: Please return to the Emergency Department if symptoms worsen or any other concerns. Prescriptions: Naproxen 500 mg PO BID #20 tablet Is patient prescribed a controlled substance at d/c from ED?: No Referrals: None,Stated [Primary Care Provider] - 1-2 days Dain Keyes MD [STAFF PHYSICIAN] - 1-2 days Fauzia Cárdenas MD [STAFF PHYSICIAN] - 1-2 days Sebastian Hairston MD [STAFF PHYSICIAN] - 1-2 days Time of Disposition: 14:41
[2019-07-13 13:24] LABS: Basophils % (A) 0 %; Eosinophils # (A) 0.1 k/uL (0-0.7); Eosinophils % (A) 2 %; HCT 43.4 % (34.0-46.0); HGB 14.3 gm/dL (11.4-16.0); Lymphocytes # (A) 1.2 k/uL (1.0-4.8); Lymphocytes % (A) 17 %; MCH 32.7 pg (25.0-35.0); MCHC 32.9 g/dL (31.0-37.0); MCV 99.5 fL (80.0-100.0); Mean Platelet Volume 8.9; Monocytes # (A) 0.3 k/uL (0-1.0); Monocytes % (A) 4 %; Neutrophils # (A) 5.3 k/uL (1.3-7.7); Neutrophils % (A) 75 %; Platelet Count 250 k/uL (150-450); RBC 4.36 m/uL (3.80-5.40); RDW 12.9 % (11.5-15.5)
[2019-07-13 13:33] LABS: D-Dimer <0.17 mg/L FEU (<0.60); INR 0.9 (<1.2); Partial Thromboplastin Time 26.2 sec (22.0-30.0); Prothrombin Time 9.7 sec (9.0-12.0)
[2019-07-13 13:34] LABS: Albumin 4.5 g/dL (3.5-5.0); Calcium 10.2 mg/dL (8.4-10.2); Magnesium 2.1 mg/dL (1.6-2.3); Potassium 4.5 mmol/L (3.5-5.1); Total Bilirubin 0.4 mg/dL (0.2-1.3); Total Protein 7.4 g/dL (6.3-8.2)
--- NOTE | 2019-07-13 13:50 | XR ---
EXAMINATION TYPE: XR chest 2V DATE OF EXAM: 07/13/2019 COMPARISON: 09/29/2017 HISTORY: Chest pain TECHNIQUE: Frontal and lateral views of the chest are obtained. FINDINGS: There is no focal air space opacity, pleural effusion, or pneumothorax seen. The cardiac silhouette size is within normal limits. The osseous structures are intact. IMPRESSION: No acute cardiopulmonary process.
[2019-07-13 14:58] VITALS: BP 119/84; PULSE 74; RESP 16
== END 2019-07-13 14:57 | disposition home or self-care (01) ==
LOC: EC 12:35
DX: M94.0 Chondrocostal junction syndrome [Tietze] (principal); R09.1 Pleurisy; E11.9 Type 2 diabetes mellitus without complications; I10 Essential (primary) hypertension; F41.9 Anxiety disorder, unspecified; F32.9 Major depressive disorder, single episode, unspecified; F17.200 Nicotine dependence, unspecified, uncomplicated; Z79.899 Other long term (current) drug therapy; Z85.41 Personal history of malignant neoplasm of cervix uteri
CPT/HCPCS: 36415; 71046; 80053; 83690; 83735; 84484; 85025; 85379; 85610; 85730; 93005; 99285

== ENCOUNTER 2020-01-24 16:05 | Emergency (ER) | payer OTHER ==
[2020-01-24 16:30] VITALS: BP 110/75; PULSE 70; RESP 18; TEMP 98
--- NOTE | 2020-01-24 17:05 | ED ---
ENT HPI - General Chief complaint: ENT Stated complaint: sore throat Time Seen by Provider: 01/24/20 16:40 Source: patient, RN notes reviewed, old records reviewed Mode of arrival: ambulatory Limitations: no limitations - History of Present Illness Initial comments: Pt is a 34 year old female with CC of sore throat, body aches for the past few days. Pt denies current fever or chills. She has not used OTC treatment. PT denies hx of sick contacts. Pt denies nausea, vomiting, and chest pain. She denies shortness of breath. - Related Data Home Medications Medication Instructions Recorded Confirmed Verapamil HCl [Verapamil ER] 120 mg PO DAILY 04/08/17 09/28/17 tiZANidine [Zanaflex] 4 mg PO TID PRN 09/28/17 09/28/17 valACYclovir [Valtrex] 500 mg PO BID 09/28/17 09/28/17 Previous Rx's Medication Instructions Recorded Clindamycin [Cleocin] 300 mg PO Q6H #12 capsule 09/30/17 Naproxen [Naprosyn] 250 mg PO BID #20 tab 09/30/17 Omeprazole [PriLOSEC] 20 mg PO AC-BRKFST #30 cap 09/30/17 Naproxen 500 mg PO BID #20 tablet 07/13/19 Azithromycin 250 mg PO DAILY 5 Days #6 tab 01/24/20 methylPREDNISolone Dose Pack 4 mg PO DIRECTED #21 package 01/24/20 [Medrol Dose Pack] Allergies Allergy/AdvReac Type Severity Reaction Status Date / Time No Known Allergies Allergy Verified 01/24/20 16:30 Review of Systems ROS Statement: Those systems with pertinent positive or pertinent negative responses have been documented in the HPI. ROS Other: All systems not noted in ROS Statement are negative. Past Medical History Past Medical History: Cancer, Diabetes Mellitus, Fibromyalgia, Hyperlipidemia, Hypertension, Osteoarthritis (OA) Additional Past Medical History / Comment(s): cervical cancer, migraines, lower back pain, degenerative disk, bulging disc, DERMAL PIERCING LEFT CHEEK. 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) History of Any Multi-Drug Resistant Organisms: None Reported Past Surgical History: Back Surgery, Hernia Repair, Hysterectomy, Tubal Ligation Additional Past Surgical History / Comment(s): D & C, UMBILICAL HERNIA REPAIR, Past Anesthesia/Blood Transfusion Reactions: No Reported Reaction Past Psychological History: Anxiety, Depression Past Alcohol Use History: None Reported Past Drug Use History: None Reported - Past Family History Mother Family Medical History: No Reported History General Exam - General Exam Comments Initial Comments: 34 year old female, no distress. Limitations: no limitations General appearance: alert, in no apparent distress Head exam: Present: atraumatic, normocephalic, normal inspection Eye exam: Present: normal appearance, PERRL, EOMI. Absent: scleral icterus, conjunctival injection, periorbital swelling ENT exam: Present: normal exam, mucous membranes moist. Absent: normal oropharynx (mild erythema, no significant exudate. ) Neck exam: Present: normal inspection. Absent: tenderness, meningismus, lymphadenopathy Respiratory exam: Present: normal lung sounds bilaterally. Absent: respiratory distress, wheezes, rales, rhonchi, stridor Cardiovascular Exam: Present: regular rate, normal rhythm, normal heart sounds. Absent: systolic murmur, diastolic murmur, rubs, gallop, clicks GI/Abdominal exam: Present: soft, normal bowel sounds. Absent: distended, tenderness, guarding, rebound, rigid Back exam: Present: normal inspection Neurological exam: Present: alert, oriented X3, CN II-XII intact Psychiatric exam: Present: normal affect, normal mood Course Vital Signs 01/24/20 16:28 Temperature 98.0 F Pulse Rate 70 Respiratory 18 Rate Blood Pressure 110/75 O2 Sat by Pulse 99 Oximetry Medical Decision Making - Medical Decision Making 34 year old female with sore throat, muscle aches and fatigue for a few days. Strep test is negative and pt was tested for claire virus. Discussed an tiinflammatory medication and use steroiod, adnif symptoms persist to use azithromycin. Disucssed return paraemters. - Lab Data Lab Results 01/24/20 01/24/20 Range/Units 17:06 17:06 Coronavirus (PCR) Not Detected (Not Detected) Group A Strep Rapid Negative (Negative) Disposition Clinical Impression: Pharyngitis Disposition: HOME SELF-CARE Condition: Good Instructions (If sedation given, give patient instructions): Pharyngitis (ED) Additional Instructions: Please use medication as discussed. Please follow up with family doctor if symptoms have not improved over the next two days. Recommend using [id number] antihistamines to help with nasal drainage. Please return to the emergency room if your symptoms increase or worsen or for any other concerns. Prescriptions: Azithromycin 250 mg PO DAILY 5 Days #6 tab methylPREDNISolone Dose Pack [Medrol Dose Pack] 4 mg PO DIRECTED #21 package Is patient prescribed a controlled substance at d/c from ED?: No Referrals: Estuardo Hunter MD [Primary Care Provider] - 1-2 days Time of Disposition: 17:03
== END 2020-01-24 17:55 | disposition home or self-care (01) ==
LOC: EC 16:05
DX: J02.9 Acute pharyngitis, unspecified (principal); Z20.828 Contact with and (suspected) exposure to other viral communicable diseases; E11.9 Type 2 diabetes mellitus without complications; I10 Essential (primary) hypertension; F41.9 Anxiety disorder, unspecified; F32.9 Major depressive disorder, single episode, unspecified; Z79.899 Other long term (current) drug therapy
CPT/HCPCS: 87081; 87430; 99283; U0003

== ENCOUNTER → 2020-02-04 | Outpatient (CLI) | payer OTHER | END | disposition home or self-care (01) | LOC: LABWHC1 10:32 | PROVIDERS: ATTEND Psychiatry & Neurology Pain Medicine | DX: Z01.818 Encounter for other preprocedural examination (principal) | CPT/HCPCS: 36415; 93005 ==

== ENCOUNTER → 2020-04-19 | Outpatient (CLI) | payer OTHER | END | disposition home or self-care (01) | LOC: LABWHC1 10:41 | PROVIDERS: ATTEND Psychiatry & Neurology Pain Medicine | DX: R55 Syncope and collapse (principal); R41.82 Altered mental status, unspecified | CPT/HCPCS: 36415; 93005 ==

== ENCOUNTER → 2020-05-16 | Outpatient (CLI) | payer MEDICARE, OTHER ==
--- NOTE | 2020-05-17 10:07 | CT ---
EXAMINATION TYPE: CT abdomen wo/w con DATE OF EXAM: 05/16/2020 COMPARISON: 08/24/2018 INDICATION: Left upper quadrant pain. DLP: 404.1 mGycm, Automated exposure control for dose reduction was used. CONTRAST: 100 mL of Isovue M300. Study performed with Oral Contrast TECHNIQUE: Axial images were obtained from above the diaphragm to the pubic rami in the axial plane a t 5 mm thick sections. Reconstructed images are reviewed on the computer in the coronal plane. FINDINGS: Limited CT sections are obtained the lung bases. The lung bases are clear. CT ABDOMEN: Liver: Normal Spleen: Normal Pancreas: Normal Adrenal glands: The adrenal glands are normal. Gallbladder: Normal Kidneys: The right kidney is severely atrophic. Left kidney slightly prominent. Punctate density coul d be a tiny renal stone in the mid lateral right left kidney measuring 0.1 cm. Series 4 image 25. In the coronal plane to punctate calcifications be identified, series 8 image 55. No obstructing renal s tones are identified. Following contrast administration, peripelvic cysts are identified. Aorta: Normal Inferior vena cava: Normal. Electronic device overlies the left anterior abdomen. IMPRESSIONS: 1. Punctate nonobstructing renal stones left kidney. 2. Atrophic right kidney
== END | disposition home or self-care (01) ==
LOC: RADCTMAIN 18:15
PROVIDERS: ATTEND Nurse Practitioner Gerontology
DX: N20.0 Calculus of kidney (principal); N26.1 Atrophy of kidney (terminal); R10.9 Unspecified abdominal pain
CPT/HCPCS: 82565; 84520; 74170; 36415; Q9967 ×2

== ENCOUNTER 2020-06-26 17:42 | Emergency (ER) | payer MEDICARE, OTHER ==
[2020-06-26 17:45] VITALS: TEMP 98.2
[2020-06-26 18:26] LABS: Basophils % (A) 1 %; Eosinophils # (A) 0.1 k/uL (0-0.7); Eosinophils % (A) 2 %; HGB 13.2 gm/dL (11.4-16.0); Lymphocytes # (A) 1.9 k/uL (1.0-4.8); Lymphocytes % (A) 27 %; MCH 32.3 pg (25.0-35.0); MCV 98.1 fL (80.0-100.0); Mean Platelet Volume 8.8; Monocytes # (A) 0.3 k/uL (0-1.0); Monocytes % (A) 5 %; Neutrophils # (A) 4.6 k/uL (1.3-7.7); Neutrophils % (A) 64 %; Platelet Count 210 k/uL (150-450); RBC 4.08 m/uL (3.80-5.40); RDW 13.3 % (11.5-15.5); WBC 7.1 k/uL (3.8-10.6)
[2020-06-26 18:40] LABS: ALT 11 U/L (4-34); AST 15 U/L (14-36); African American GFR (CKD) >90 (>60 ml/min/1.73 sqM); Albumin 4.2 g/dL (3.5-5.0); Alkaline Phosphatase 44 U/L (38-126); Amylase 71 U/L (30-110); Anion Gap 5 mmol/L; Blood Urea Nitrogen 19 mg/dL (7-17); Calcium 9.2 mg/dL (8.4-10.2); Carbon Dioxide 27 mmol/L (22-30); Chloride 106 mmol/L (98-107); Glucose 102 mg/dL (74-99); Lipase 104 U/L (23-300); Non-African American GFR(CKD) 80 (>60 ml/min/1.73 sqM); Potassium 4.4 mmol/L (3.5-5.1); Sodium 138 mmol/L (137-145); Total Bilirubin 0.3 mg/dL (0.2-1.3); Total Protein 6.8 g/dL (6.3-8.2)
[2020-06-26 19:25] LABS: Amorphous Sediment,Urine Rare /hpf; Appearance,Urine Turbid (Clear); Bacteria,Urine Rare /hpf; Bilirubin,Urine Negative (Negative); Blood,Urine Negative (Negative); Color,Urine Yellow; Glucose,Urine (UA) Negative (Negative); Ketones,Urine Negative (Negative); Leukocyte Esterase,Urine Trace (Negative); Mucus,Urine Rare /hpf; Nitrite,Urine Positive (Negative); PH, Urine 6.5 (5.0-8.0); Protein,Urine Trace (Negative); RBC,Urine 1 /hpf (0-5); Specific Gravity,Urine 1.024 (1.001-1.035); Squamous Epithelial Cell,Urine 12 /hpf (0-4); Urobilinogen,Urine <2.0 mg/dL (<2.0); WBC,Urine 5 /hpf (0-5)
[2020-06-26] MEDS ORDERED: cefTRIAXone IN SWFI 1,000 MG/10 ML SYRINGE IVP STA (19:34)
--- NOTE | 2020-06-26 19:56 | CT ---
EXAMINATION TYPE: CT abdomen pelvis w con DATE OF EXAM: 06/26/2020 COMPARISON: 05/16/2020 HISTORY: RLQ pain with nausea. CT DLP: 527.1 mGycm Automated exposure control for dose reduction was used. CONTRAST: Performed with IV Contrast, patient injected with 100 mL of Isovue 300. Images obtained from the diaphragm to the floor the pelvis with IV contrast. Lung bases are clear. There is no pleural effusion. Heart size is normal. There is no pericardial eff usion. Liver spleen stomach pancreas gallbladder appear intact. Gallbladder is contracted. The bile d ucts are not dilated. There is no adrenal mass. There is some very tiny right kidney. Left kidney shows some compensatory h ypertrophy. There is no hydronephrosis. There is normal contrast opacification of the left kidney. De layed images show normal left side renal excretion. There is device implanted over the left anterior abdomen. Bladder distends smoothly. There is no inguinal hernia. There is no free fluid in the pelvis. I see n o evidence of a pelvic mass. Uterus is absent. There is no mesenteric edema. There is no ascites or f ree air. There is no sign of a bowel obstruction. Lumbar vertebra have normal alignment. There is slight narrowing of L4-5 disc space. There is no comp ression fracture. The posterior elements are intact. The bony pelvis is intact. Hip joints are intact . There is no evidence of a pelvic mass. Appendix is not seen. There is no sign of thickened appendix . IMPRESSION: Negative CT scan of the abdomen pelvis. No adverse change compared to old exam.
--- NOTE | 2020-06-26 20:12 | US ---
EXAMINATION TYPE: US transvaginal DATE OF EXAM: 06/26/2020 COMPARISON: CT CLINICAL HISTORY: RLQ pain, sudden onset. RLQ pain x 5.5 hours. Hx tubal ligation, partial hysterecto my 2017, D and C. . TECHNIQUE: Transvaginal (TV). Date of LMP: 2017 EXAM MEASUREMENTS: Uterus: Surgically removed Right Ovary: 5.1 x 3.5 x 2.9 cm Left Ovary: 4.4 x 2.9 x 1.5 cm 1. Uterus: Surgically removed. 2. Right Ovary: Appears enlarged. Anechoic areas seen. Largest measures 0.9 x 0.8 x 0.7 cm. 3. Left Ovary: Appears enlarged. Hypoechoic area seen measuring 1.0 x 0.8 x 0.8 cm. Spectral, color and waveform doppler imaging shows arterial flow within the ovaries. Difficult to s how a clear venous waveform bilaterally. Limited venous waveform visibility. 4. Bilateral Adnexa: Peristalsis seen throughout. 5. Posterior cul-de-sac: Appears wnl IMPRESSION: Ovaries are large with bilateral multiple follicular type cysts. No solid adnexal mass. No evidence o f ovarian torsion. Hysterectomy noted. No free fluid.
--- NOTE | 2020-06-26 20:18 | ED ---
Abdominal Pain HPI - General Chief Complaint: Abdominal Pain Stated Complaint: abd pain Time Seen by Provider: 06/26/20 17:55 Source: patient Mode of arrival: ambulatory Limitations: no limitations - History of Present Illness Initial Comments: 34 year female history of cervical cancer, partial hysterectomy presenting to the emergency department today for chief complaint of burning right lower quadrant pain 3 hours. Patient states she's had a burning right lower quadrant pain that began roughly 3 hours ago. Patient denies any nausea vomiting diarr hea fever she denies any vaginal bleeding, she denies conservative essentially transmitted diseases or vaginal discharge. She denies dysuria urgency frequency or hematuria. She denies any radiation of the pain she denies any back pain. Patient denies upper developing chest pain or shortness of breath remaining review of systems negative upon arrival patient appears well nontoxic distress she states she does have history of ovarian cysts - Related Data Home Medications Medication Instructions Recorded Confirmed Verapamil HCl [Verapamil ER] 120 mg PO DAILY 04/08/17 09/28/17 tiZANidine [Zanaflex] 4 mg PO TID PRN 09/28/17 09/28/17 valACYclovir [Valtrex] 500 mg PO BID 09/28/17 09/28/17 Previous Rx's Medication Instructions Recorded Clindamycin [Cleocin] 300 mg PO Q6H #12 capsule 09/30/17 Naproxen [Naprosyn] 250 mg PO BID #20 tab 09/30/17 Omeprazole [PriLOSEC] 20 mg PO AC-BRKFST #30 cap 09/30/17 Naproxen 500 mg PO BID #20 tablet 07/13/19 Azithromycin 250 mg PO DAILY 5 Days #6 tab 01/24/20 methylPREDNISolone Dose Pack 4 mg PO DIRECTED #21 package 01/24/20 [Medrol Dose Pack] Cephalexin [Keflex] 500 mg PO Q6HR 7 Days #28 cap 06/26/20 Doxycycline [Vibramycin] 100 mg PO BID 14 Days #28 capsule 06/26/20 Allergies Allergy/AdvReac Type Severity Reaction Status Date / Time No Known Allergies Allergy Verified 06/26/20 17:45 Review of Systems ROS Statement: Those systems with pertinent positive or pertinent negative responses have been documented in the HPI. ROS Other: All systems not noted in ROS Statement are negative. Past Medical History Past Medical History: Cancer, Diabetes Mellitus, Fibromyalgia, Hyperlipidemia, Hypertension, Osteoarthritis (OA) Additional Past Medical History / Comment(s): cervical cancer, migraines, lower back pain, degenerative disk, bulging disc, DERMAL PIERCING LEFT CHEEK. 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) History of Any Multi-Drug Resistant Organisms: None Reported Past Surgical History: Back Surgery, Hernia Repair, Hysterectomy, Tubal Ligation Additional Past Surgical History / Comment(s): D & C, UMBILICAL HERNIA REPAIR, Past Anesthesia/Blood Transfusion Reactions: No Reported Reaction Past Psychological History: Anxiety, Depression Smoking Status: Current every day smoker Past Alcohol Use History: None Reported Past Drug Use History: None Reported - Past Family History Mother Family Medical History: No Reported History General Exam - General Exam Comments Initial Comments: General: The patient is awake and alert, in no distress, and does not appear acutely ill. Eye: +3 mm pupils are equal, round and reactive to light, extra-ocular movements are intact. No nystagmus. There is normal conjunctiva bilaterally. No signs of icterus. Ears, nose, mouth and throat: There are moist mucous membranes and no oral lesions. Neck: The neck is supple, there is no tenderness or JVD. Cardiovascular: There is a regular rate and rhythm. No murmur, rub or gallop is appreciated. Respiratory: Lungs are clear to auscultation, respirations are non-labored, breath sounds are equal. No wheezes, stridor, rales, or rhonchi. Gastrointestinal: Soft, non-distended, mild right lower pelvic tenderness to palpation of the abdomen, abdomen without masses or organomegaly noted. There is no rebound or guarding present. : tenderness and discharge (thin, white) on examination, no odors. Musculoskeletal: Normal ROM, no tenderness. Strength 5/5. Sensation intact. Radial pulses equal bilaterally 2+. Neurological: A&O x 3. CN II-XII intact, There are no obvious motor or sensory deficits. Coordination appears grossly intact. Speech is normal. Skin: Skin is warm and dry and no rashes or lesions are noted. Psychiatric: Cooperative, appropriate mood & affect, normal judgment. Limitations: no limitations Course Vital Signs 06/26/20 06/26/20 17:43 21:00 Temperature 98.2 F Pulse Rate 70 98 Respiratory 20 18 Rate Blood Pressure 124/73 106/67 O2 Sat by Pulse 99 98 Oximetry Medical Decision Making - Medical Decision Making Abdomen mild tenderness, CT no aute process. US reveals larges cysts. UA nitrate + with some bacteria Patient given rocephin. given discharge and pain on pevlic patient will be placed on doxycycline x 14 days. patient is to f/u [facility] OBGYN. return for worsening pain symptoms. but at this time given clinical appearance, imaging findings, vs and laboratory studies I feel she is stable for discharge. attending Dr. Contreras agreeable pt discharged appearing well. - Lab Data Result diagrams: 06/26/20 18:11 06/26/20 18:11 Lab Results 06/26/20 06/26/20 06/26/20 Range/Units 18:11 18:11 18:11 WBC 7.1 (3.8-10.6) k/uL RBC 4.08 (3.80-5.40) m/uL Hgb 13.2 (11.4-16.0) gm/dL Hct 40.0 (34.0-46.0) % MCV 98.1 (80.0-100.0) fL MCH 32.3 (25.0-35.0) pg MCHC 33.0 (31.0-37.0) g/dL RDW 13.3 (11.5-15.5) % Plt Count 210 (150-450) k/uL MPV 8.8 Neutrophils % 64 % Lymphocytes % 27 % Monocytes % 5 % Eosinophils % 2 % Basophils % 1 % Neutrophils # 4.6 (1.3-7.7) k/uL Lymphocytes # 1.9 (1.0-4.8) k/uL Monocytes # 0.3 (0-1.0) k/uL Eosinophils # 0.1 (0-0.7) k/uL Basophils # 0.0 (0-0.2) k/uL Sodium 138 (137-145) mmol/L Potassium 4.4 (3.5-5.1) mmol/L Chloride 106 (98-107) mmol/L Carbon Dioxide 27 (22-30) mmol/L Anion Gap 5 mmol/L BUN 19 H (7-17) mg/dL Creatinine 0.93 (0.52-1.04) mg/dL Est GFR (CKD-EPI)AfAm >90 (>60 ml/min/1.73 sqM) Est GFR (CKD-EPI)NonAf 80 (>60 ml/min/1.73 sqM) Glucose 102 H (74-99) mg/dL Calcium 9.2 (8.4-10.2) mg/dL Total Bilirubin 0.3 (0.2-1.3) mg/dL AST 15 (14-36) U/L ALT 11 (4-34) U/L Alkaline Phosphatase 44 (38-126) U/L Total Protein 6.8 (6.3-8.2) g/dL Albumin 4.2 (3.5-5.0) g/dL Amylase 71 (30-110) U/L Lipase 104 (23-300) U/L Urine Color Yellow Urine Appearance Turbid H (Clear) Urine pH 6.5 (5.0-8.0) Ur Specific [place] 1.024 (1.001-1.035) Urine Protein Trace H (Negative) Urine Glucose (UA) Negative (Negative) Urine Ketones Negative (Negative) Urine Blood Negative (Negative) Urine Nitrite Positive H (Negative) Urine Bilirubin Negative (Negative) Urine Urobilinogen <2.0 (<2.0) mg/dL Ur Leukocyte Esterase Trace H (Negative) Urine RBC 1 (0-5) /hpf Urine WBC 5 (0-5) /hpf Ur Squamous Epith Cells 12 H (0-4) /hpf Amorphous Sediment Rare H (None) /hpf Urine Bacteria Rare H (None) /hpf Urine Mucus Rare H (None) /hpf Trichomonas Ag (Rapid) (Negative) 06/26/20 Range/Units 20:55 WBC (3.8-10.6) k/uL RBC (3.80-5.40) m/uL Hgb (11.4-16.0) gm/dL Hct (34.0-46.0) % MCV (80.0-100.0) fL MCH (25.0-35.0) pg MCHC (31.0-37.0) g/dL RDW (11.5-15.5) % Plt Count (150-450) k/uL MPV Neutrophils % % Lymphocytes % % Monocytes % % Eosinophils % % Basophils % % Neutrophils # (1.3-7.7) k/uL Lymphocytes # (1.0-4.8) k/uL Monocytes # (0-1.0) k/uL Eosinophils # (0-0.7) k/uL Basophils # (0-0.2) k/uL Sodium (137-145) mmol/L Potassium (3.5-5.1) mmol/L Chloride (98-107) mmol/L Carbon Dioxide (22-30) mmol/L Anion Gap mmol/L BUN (7-17) mg/dL Creatinine (0.52-1.04) mg/dL Est GFR (CKD-EPI)AfAm (>60 ml/min/1.73 sqM) Est GFR (CKD-EPI)NonAf (>60 ml/min/1.73 sqM) Glucose (74-99) mg/dL Calcium (8.4-10.2) mg/dL Total Bilirubin (0.2-1.3) mg/dL AST (14-36) U/L ALT (4-34) U/L Alkaline Phosphatase (38-126) U/L Total Protein (6.3-8.2) g/dL Albumin (3.5-5.0) g/dL Amylase (30-110) U/L Lipase (23-300) U/L Urine Color Urine Appearance (Clear) Urine pH (5.0-8.0) Ur Specific [place] (1.001-1.035) Urine Protein (Negative) Urine Glucose (UA) (Negative) Urine Ketones (Negative) Urine Blood (Negative) Urine Nitrite (Negative) Urine Bilirubin (Negative) Urine Urobilinogen (<2.0) mg/dL Ur Leukocyte Esterase (Negative) Urine RBC (0-5) /hpf Urine WBC (0-5) /hpf Ur Squamous Epith Cells (0-4) /hpf Amorphous Sediment (None) /hpf Urine Bacteria (None) /hpf Urine Mucus (None) /hpf Trichomonas Ag (Rapid) Negative (Negative) Disposition Clinical Impression: UTI (urinary tract infection), Abdominal pain, Vaginal discharge Disposition: HOME SELF-CARE Condition: Good Instructions (If sedation given, give patient instructions): Urinary Tract Infection in Women (ED) Additional Instructions: Please use medication as discussed. Please follow-up with family doctor in the next 2 days. Please return to emergency room if the symptoms increase or worsen or for any other concerns. Prescriptions: Cephalexin [Keflex] 500 mg PO Q6HR 7 Days #28 cap Doxycycline [Vibramycin] 100 mg PO BID 14 Days #28 capsule Is patient prescribed a controlled substance at d/c from ED?: No Referrals: Estuardo Hunter MD [Primary Care Provider] - 1-2 days Jana Weston MD [STAFF PHYSICIAN] - 1-2 days Time of Disposition: 20:17
[2020-06-26 21:00] VITALS: BP 106/67; PULSE 98; RESP 18
== END 2020-06-26 21:19 | disposition home or self-care (01) ==
LOC: EC 17:42
DX: N39.0 Urinary tract infection, site not specified (principal); N89.8 Other specified noninflammatory disorders of vagina; F41.9 Anxiety disorder, unspecified; F32.9 Major depressive disorder, single episode, unspecified; F17.200 Nicotine dependence, unspecified, uncomplicated; Z79.899 Other long term (current) drug therapy; Z90.710 Acquired absence of both cervix and uterus; Z85.41 Personal history of malignant neoplasm of cervix uteri
CPT/HCPCS: 99284; 96374; 80053; 82150; 83690; 85025; 87808; 87491; 87591; 87070; 93975; 76830; 74177; J0696; Q9967; 36415; 81001; 81025

== ENCOUNTER 2020-09-06 15:21 | Emergency (ER) | payer MEDICARE, OTHER ==
[2020-09-06 15:45] VITALS: BP 100/63; PULSE 64; RESP 18; TEMP 97.9
--- NOTE | 2020-09-06 15:46 | ED ---
Skin/Abscess/FB HPI - General Chief complaint: Skin/Abscess/Foreign Body Stated complaint: rash on arms Time Seen by Provider: 09/06/20 15:33 Source: patient Mode of arrival: ambulatory Limitations: no limitations - History of Present Illness Initial comments: 34-year-old female presenting for rash to bilateral arms. She states that herself as well as her son after doing gardening have a similar appearing rash on the arms. She states her other children who are not involved in the gardening did not have any symptoms. She does see fevers chills or general malaise she states it is red and very itchy. She states in certain areas are small blisters. Patient has no additional complaints denies any oral I or genitalia involvement. She states it is only on her upper arms bilaterally. Remaining B system negative patient states that she does have a history of [id number] diabetes - Related Data Home Medications Medication Instructions Recorded Confirmed Verapamil HCl [Verapamil ER] 120 mg PO DAILY 04/08/17 09/28/17 tiZANidine [Zanaflex] 4 mg PO TID PRN 09/28/17 09/28/17 valACYclovir [Valtrex] 500 mg PO BID 09/28/17 09/28/17 Previous Rx's Medication Instructions Recorded Clindamycin [Cleocin] 300 mg PO Q6H #12 capsule 09/30/17 Naproxen [Naprosyn] 250 mg PO BID #20 tab 09/30/17 Omeprazole [PriLOSEC] 20 mg PO AC-BRKFST #30 cap 09/30/17 Naproxen 500 mg PO BID #20 tablet 07/13/19 Azithromycin 250 mg PO DAILY 5 Days #6 tab 01/24/20 methylPREDNISolone Dose Pack 4 mg PO DIRECTED #21 package 01/24/20 [Medrol Dose Pack] Cephalexin [Keflex] 500 mg PO Q6HR 7 Days #28 cap 06/26/20 Doxycycline [Vibramycin] 100 mg PO BID 14 Days #28 capsule 06/26/20 hydrOXYzine HCL 25 mg PO Q12H PRN 5 Days #10 tablet 09/06/20 Allergies Allergy/AdvReac Type Severity Reaction Status Date / Time No Known Allergies Allergy Verified 09/06/20 15:42 Review of Systems ROS Statement: Those systems with pertinent positive or pertinent negative responses have been documented in the HPI. ROS Other: All systems not noted in ROS Statement are negative. Past Medical History Past Medical History: Cancer, Diabetes Mellitus, Fibromyalgia, Hyperlipidemia, Hypertension, Osteoarthritis (OA) Additional Past Medical History / Comment(s): cervical cancer, migraines, lower back pain, degenerative disk, bulging disc, DERMAL PIERCING LEFT CHEEK. 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) History of Any Multi-Drug Resistant Organisms: None Reported Past Surgical History: Back Surgery, Hernia Repair, Hysterectomy, Tubal Ligation Additional Past Surgical History / Comment(s): D & C, UMBILICAL HERNIA REPAIR, back surgery x3 Past Anesthesia/Blood Transfusion Reactions: No Reported Reaction Past Psychological History: Anxiety, Depression Smoking Status: Current every day smoker Past Alcohol Use History: None Reported Past Drug Use History: None Reported - Past Family History Mother Family Medical History: No Reported History General Exam - General Exam Comments Initial Comments: General: The patient is awake and alert, in no distress Eye: Pupils are equal, round and reactive to light, extra-ocular movements are intact. No nystagmus. There is normal conjunctiva bilaterally. No signs of icterus. Ears, nose, mouth and throat: There are moist mucous membranes and no oral lesions. Cardiovascular: There is a regular rate and rhythm. No murmur, rub or gallop is appreciated. Respiratory: Lungs are clear to auscultation, respirations are non-labored, breath sounds are equal. No wheezes, stridor, rales, or rhonchi. Musculoskeletal: Normal ROM, no tenderness. Strength 5/5. Sensation intact. Radial and DP pulses equal bilaterally 2+. Neurological: A&O x 3. CN II-XII intact grossly, There are no obvious motor or sensory deficits. Coordination appears grossly intact. Speech is normal. Skin: Skin is warm and dry. erythematous , linear in some areas, macular/papular rash with some vesicular appearing lesions. Psychiatric: Cooperative, appropriate mood & affect, normal judgment. Limitations: no limitations Course Vital Signs 09/06/20 15:42 Temperature 97.9 F Pulse Rate 64 Respiratory 18 Rate Blood Pressure 100/63 O2 Sat by Pulse 98 Oximetry Medical Decision Making - Medical Decision Making History examination findings consistent with contact dermatitis such as poison priyanka sumac or oak. Patient will be treated symptomatically and discharged with primary care follow-up. patient agreeable to this care plan and discharge. return parameters discussed. Disposition Clinical Impression: Contact dermatitis Disposition: HOME SELF-CARE Condition: Good Instructions (If sedation given, give patient instructions): Poison Priyanka (ED) Additional Instructions: Please use medication as discussed. Please follow-up with family doctor in the next 2 days. Please return to emergency room if the symptoms increase or worsen or for any other concerns. Prescriptions: hydrOXYzine HCL 25 mg PO Q12H PRN 5 Days #10 tablet PRN Reason: Itching Is patient prescribed a controlled substance at d/c from ED?: No Referrals: Yousuf Hunter MD [REFERRING] - 1-2 days Time of Disposition: 15:45
== END 2020-09-06 15:57 | disposition home or self-care (01) ==
LOC: EC 15:21
DX: L25.9 Unspecified contact dermatitis, unspecified cause (principal); E11.9 Type 2 diabetes mellitus without complications; E78.5 Hyperlipidemia, unspecified; F17.200 Nicotine dependence, unspecified, uncomplicated; I10 Essential (primary) hypertension; M19.90 Unspecified osteoarthritis, unspecified site; M79.7 Fibromyalgia; F32.9 Major depressive disorder, single episode, unspecified; Z85.41 Personal history of malignant neoplasm of cervix uteri; Z90.710 Acquired absence of both cervix and uterus; Z90.09 Acquired absence of other part of head and neck
CPT/HCPCS: 99282

== ENCOUNTER → 2021-03-06 | Outpatient (CLI) | payer MEDICARE, OTHER ==
--- NOTE | 2021-03-06 16:12 | CT ---
EXAMINATION TYPE: CT pelvis w con DATE OF EXAM: 03/06/2021 COMPARISON: 06/26/2020 HISTORY: 35-year-old female R19.00, pelvic pain and swelling, history of cervical ca TECHNIQUE: Contiguous axial scanning of the pelvis following administration of 100 ml Isovue 300 IV c ontrast. Delayed images through the pelvis and coronal/sagittal reconstructions performed. CT DLP: 272.5 mGycm Automated exposure control for dose reduction was used. FINDINGS: Moderate to large stool burden is noted. Clustered small bowel loops in the lower abdomen and pelvis. Some fecalization of intraluminal content suggesting stasis or fiber food bolus. No free fluid is se en. Normal appendix identified on coronal images. No evident lower abdominal or pelvic lymphadenopathy seen. Status post hysterectomy. Evaluation of the bilateral ovaries. Unable to exclude cystic lesion of the right ovary measuring 3.8 x 3.7 x 3.2 cm (axial image 33, coronal image 15, and sagittal image 26). No abnormal fluid collection in the pelvis Multiple pelvic phleboliths. Bones: Facet arthropathy L5-S1. There is a left paracentral disc herniation that may impinge the vinh ersing left S1 nerve root. IMPRESSION: 1. STATUS POST HYSTERECTOMY. UNCLEAR IF THE OVARIES ARE ALSO ABSENT. POSSIBLE MULTICYSTIC LESION IN T HE RIGHT ADNEXA MEASURING 3.8 CM. POSSIBLY OF OVARIAN ORIGIN IF OVARIES ARE STILL PRESENT. PELVIC ULT RASOUND RECOMMENDED TO FURTHER EVALUATE. 2. MODERATE TO LARGE STOOL BURDEN. FECALIZATION OF SMALL BOWEL CONTENT IN THE LOWER ABDOMEN AND PELVI S COULD REFLECT STASIS OR RECENT FIBER FOOD BOLUS. CLINICALLY CORRELATE. 3. LEFT PARACENTRAL DISC HERNIATION AT L5-S1 MAY IMPINGE THE TRAVERSING LEFT S1 NERVE ROOT. CORRELATE WITH PATIENT'S SYMPTOMS.
== END | disposition home or self-care (01) ==
LOC: RADCTMAIN 12:46
PROVIDERS: ATTEND Internal Medicine
DX: R19.00 Intra-abdominal and pelvic swelling, mass and lump, unspecified site (principal)
CPT/HCPCS: 72193; Q9967

== ENCOUNTER → 2021-03-12 | Outpatient (CLI) | payer MEDICARE, OTHER ==
--- NOTE | 2021-03-12 12:01 | XR ---
EXAMINATION TYPE: XR chest 2V DATE OF EXAM: 03/12/2021 COMPARISON: 07/13/2019 TECHNIQUE: PA and lateral views submitted. HISTORY: Cervical cancer FINDINGS: The lungs are clear and there is no pneumothorax, pleural effusion, or focal pneumonia. Hyperinflat ion. IMPRESSION: 1. No acute process. Correlate for COPD.
== END | disposition home or self-care (01) ==
LOC: RADXRMAIN 11:38
PROVIDERS: ATTEND Internal Medicine Hematology & Oncology
DX: C53.9 Malignant neoplasm of cervix uteri, unspecified (principal); C79.51 Secondary malignant neoplasm of bone; E11.9 Type 2 diabetes mellitus without complications
CPT/HCPCS: 71046

== ENCOUNTER 2021-04-04 20:41 | Emergency (ER) | payer MEDICARE, OTHER ==
[2021-04-04 21:13] VITALS: PULSE 71
[2021-04-04] MEDS ORDERED: diphenhydrAMINE 50 MG/ML 1 ML VIAL IVP STA (21:55)
[2021-04-04] MEDS ORDERED: ONDANSETRON 4 MG/2 ML VIAL IVP STA (21:55)
[2021-04-04] MEDS ORDERED: SODIUM CHLORIDE 0.9% 1,000 ML IV STA (21:55)
[2021-04-04] MEDS ORDERED: MORPHINE SULFATE 4 MG/ML SYRINGE IV STA (21:55)
[2021-04-04 21:59] LABS: Appearance,Urine Cloudy (Clear); Bacteria,Urine Few /hpf; Bilirubin,Urine Negative (Negative); Blood,Urine Negative (Negative); Color,Urine Yellow; Glucose,Urine (UA) Negative (Negative); Ketones,Urine Negative (Negative); Leukocyte Esterase,Urine Trace (Negative); Mucus,Urine Many /hpf; Nitrite,Urine Negative (Negative); PH, Urine 5.5 (5.0-8.0); Protein,Urine 1+ (Negative); RBC,Urine 2 /hpf (0-5); Renal Epithelial Cells,Urine 2 /hpf (0); Specific Gravity,Urine 1.038 (1.001-1.035); Squamous Epithelial Cell,Urine 9 /hpf (0-4); WBC,Urine 5 /hpf (0-5)
--- NOTE | 2021-04-04 22:03 | ED ---
Abdominal Pain HPI - General Chief Complaint: Abdominal Pain Stated Complaint: Abd Pain Time Seen by Provider: 04/04/21 21:36 Source: patient, RN notes reviewed, old records reviewed Mode of arrival: ambulatory Limitations: no limitations - History of Present Illness Initial Comments: This is a 35-year-old female to the emergency room today. Patient Dese for evaluation of abdominal pain significant suprapubic abdominal pain with right lower quadrant abdominal pain and tenderness. Patient has significant abdominal pain that started a couple hours prior to arrival. No current vaginal bleeding no dysuria recently fevers, no other complaints. No trauma. Patient does have history of going through recent evaluation possible cervical cancer. MD Complaint: abdominal pain -: hour(s) Location: RLQ, suprapubic Radiation: suprapubic Migration to: suprapubic Severity: severe Severity scale (1-10): 10 Quality: stabbing, aching Consistency: constant Improves With: nothing Worsens With: nothing Associated Symptoms: nausea, vomiting Treatments Prior to Arrival: prescription analgesics (none) - Related Data Home Medications Medication Instructions Recorded Confirmed valACYclovir [Valtrex] 500 mg PO DAILY 09/28/17 04/04/21 Albuterol Inhaler [Ventolin Hfa 2 puff INHALATION RT-Q4H PRN 04/04/21 04/04/21 Inhaler] Butalb/APAP/Caff 50-325-40Mg 1 tab PO DAILY PRN 04/04/21 04/04/21 [Fioricet 50-325-40] HYDROcodone/APAP 10-325MG [Cheney 1 tab PO TID PRN 04/04/21 04/04/21 10-325] Primidone [Mysoline] 50 mg PO DAILY PRN 04/04/21 04/04/21 Allergies Allergy/AdvReac Type Severity Reaction Status Date / Time No Known Allergies Allergy Verified 04/04/21 23:03 Review of Systems ROS Statement: Those systems with pertinent positive or pertinent negative responses have been documented in the HPI. ROS Other: All systems not noted in ROS Statement are negative. Past Medical History Past Medical History: Cancer, Diabetes Mellitus, Fibromyalgia, Hyperlipidemia, Hypertension, Osteoarthritis (OA) Additional Past Medical History / Comment(s): cervical cancer, migraines, lower back pain, degenerative disk, bulging disc, DERMAL PIERCING LEFT CHEEK. 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) History of Any Multi-Drug Resistant Organisms: None Reported Past Surgical History: Back Surgery, Hernia Repair, Hysterectomy, Tubal Ligation Additional Past Surgical History / Comment(s): D & C, UMBILICAL HERNIA REPAIR, back surgery x3 Past Anesthesia/Blood Transfusion Reactions: No Reported Reaction Past Psychological History: Anxiety, Depression Smoking Status: Current every day smoker Past Alcohol Use History: None Reported Past Drug Use History: None Reported - Past Family History Mother Family Medical History: No Reported History General Exam Limitations: no limitations General appearance: alert, in no apparent distress Head exam: Present: atraumatic, normocephalic, normal inspection Eye exam: Present: normal appearance, PERRL, EOMI. Absent: scleral icterus, conjunctival injection, periorbital swelling ENT exam: Present: normal exam, mucous membranes moist Neck exam: Present: normal inspection. Absent: tenderness, meningismus, lymphadenopathy Respiratory exam: Present: normal lung sounds bilaterally. Absent: respiratory distress, wheezes, rales, rhonchi, stridor Cardiovascular Exam: Present: regular rate, normal rhythm, normal heart sounds. Absent: systolic murmur, diastolic murmur, rubs, gallop, clicks GI/Abdominal exam: Present: soft, tenderness (Medical record is reviewed and pain is controlled), normal bowel sounds. Absent: distended, guarding, rebound, rigid Extremities exam: Present: normal inspection, full ROM, normal capillary refill. Absent: tenderness, pedal edema, joint swelling, calf tenderness Back exam: Present: normal inspection Neurological exam: Present: alert, oriented X3, CN II-XII intact Psychiatric exam: Present: normal affect, normal mood Skin exam: Present: warm, dry, intact, normal color. Absent: rash Course Vital Signs 04/04/21 04/05/21 21:10 01:22 Temperature 97.5 F L 97.9 F Pulse Rate 71 Respiratory 20 16 Rate Blood Pressure 132/87 119/73 O2 Sat by Pulse 100 99 Oximetry - Reevaluation(s) Reevaluation #1: Medical record is reviewed Symptoms are improved here in the emergency department Patient is informed of results and questions answered Medical Decision Making - Medical Decision Making 35 female to the ER for evaluation of significant abdominal pain with ovarian cyst ovarian cyst rupture likely. Patient will be a follow-up to OB with primary care and pain control. - Lab Data Result diagrams: 04/04/21 22:46 04/04/21 22:46 Lab Results 04/04/21 04/04/21 04/04/21 Range/Units 21:16 21:16 22:46 WBC 9.2 (3.8-10.6) k/uL RBC 3.99 (3.80-5.40) m/uL Hgb 13.1 (11.4-16.0) gm/dL Hct 39.1 (34.0-46.0) % MCV 97.9 (80.0-100.0) fL MCH 32.9 (25.0-35.0) pg MCHC 33.6 (31.0-37.0) g/dL RDW 13.1 (11.5-15.5) % Plt Count 232 (150-450) k/uL MPV 8.9 Neutrophils % 73 % Lymphocytes % 20 % Monocytes % 5 % Eosinophils % 1 % Basophils % 0 % Neutrophils # 6.7 (1.3-7.7) k/uL Lymphocytes # 1.8 (1.0-4.8) k/uL Monocytes # 0.4 (0-1.0) k/uL Eosinophils # 0.0 (0-0.7) k/uL Basophils # 0.0 (0-0.2) k/uL Sodium (137-145) mmol/L Potassium (3.5-5.1) mmol/L Chloride (98-107) mmol/L Carbon Dioxide (22-30) mmol/L Anion Gap mmol/L BUN (7-17) mg/dL Creatinine (0.52-1.04) mg/dL Est GFR (CKD-EPI)AfAm (>60 ml/min/1.73 sqM) Est GFR (CKD-EPI)NonAf (>60 ml/min/1.73 sqM) Glucose (74-99) mg/dL Plasma Lactic Acid Carter (0.7-2.0) mmol/L Calcium (8.4-10.2) mg/dL Total Bilirubin (0.2-1.3) mg/dL AST (14-36) U/L ALT (4-34) U/L Alkaline Phosphatase (38-126) U/L Total Protein (6.3-8.2) g/dL Albumin (3.5-5.0) g/dL Amylase (30-110) U/L Lipase (23-300) U/L Urine Color Yellow Urine Appearance Cloudy H (Clear) Urine pH 5.5 (5.0-8.0) Ur Specific Raymond 1.038 H (1.001-1.035) Urine Protein 1+ H (Negative) Urine Glucose (UA) Negative (Negative) Urine Ketones Negative (Negative) Urine Blood Negative (Negative) Urine Nitrite Negative (Negative) Urine Bilirubin Negative (Negative) Urine Urobilinogen 2.0 (<2.0) mg/dL Ur Leukocyte Esterase Trace H (Negative) Urine RBC 2 (0-5) /hpf Urine WBC 5 (0-5) /hpf Ur Squamous Epith Cells 9 H (0-4) /hpf Ur Renal Epithelial Cell 2 (0) /hpf Urine Bacteria Few H (None) /hpf Urine Mucus Many H (None) /hpf Urine HCG, Qual Not Detected (Not Detectd) 04/04/21 04/04/21 Range/Units 22:46 22:46 WBC (3.8-10.6) k/uL RBC (3.80-5.40) m/uL Hgb (11.4-16.0) gm/dL Hct (34.0-46.0) % MCV (80.0-100.0) fL MCH (25.0-35.0) pg MCHC (31.0-37.0) g/dL RDW (11.5-15.5) % Plt Count (150-450) k/uL MPV Neutrophils % % Lymphocytes % % Monocytes % % Eosinophils % % Basophils % % Neutrophils # (1.3-7.7) k/uL Lymphocytes # (1.0-4.8) k/uL Monocytes # (0-1.0) k/uL Eosinophils # (0-0.7) k/uL Basophils # (0-0.2) k/uL Sodium 135 L (137-145) mmol/L Potassium 4.4 (3.5-5.1) mmol/L Chloride 106 (98-107) mmol/L Carbon Dioxide 23 (22-30) mmol/L Anion Gap 6 mmol/L BUN 17 (7-17) mg/dL Creatinine 1.02 (0.52-1.04) mg/dL Est GFR (CKD-EPI)AfAm 82 (>60 ml/min/1.73 sqM) Est GFR (CKD-EPI)NonAf 71 (>60 ml/min/1.73 sqM) Glucose 96 (74-99) mg/dL Plasma Lactic Acid Carter 0.8 (0.7-2.0) mmol/L Calcium 9.3 (8.4-10.2) mg/dL Total Bilirubin 0.3 (0.2-1.3) mg/dL AST 18 (14-36) U/L ALT 9 (4-34) U/L Alkaline Phosphatase 53 (38-126) U/L Total Protein 6.9 (6.3-8.2) g/dL Albumin 4.3 (3.5-5.0) g/dL Amylase 60 (30-110) U/L Lipase 54 (23-300) U/L Urine Color Urine Appearance (Clear) Urine pH (5.0-8.0) Ur Specific Raymond (1.001-1.035) Urine Protein (Negative) Urine Glucose (UA) (Negative) Urine Ketones (Negative) Urine Blood (Negative) Urine Nitrite (Negative) Urine Bilirubin (Negative) Urine Urobilinogen (<2.0) mg/dL Ur Leukocyte Esterase (Negative) Urine RBC (0-5) /hpf Urine WBC (0-5) /hpf Ur Squamous Epith Cells (0-4) /hpf Ur Renal Epithelial Cell (0) /hpf Urine Bacteria (None) /hpf Urine Mucus (None) /hpf Urine HCG, Qual (Not Detectd) - Radiology Data Radiology results: report reviewed (CT and ultrasound of abdomen does show positive ovarian cyst with likely rupture of fluid), image reviewed Disposition Clinical Impression: Right ovarian cyst, Abdominal pain Disposition: HOME SELF-CARE Condition: Good Instructions (If sedation given, give patient instructions): Ovarian Cyst (ED), Ruptured Ovarian Cyst (ED) Is patient prescribed a controlled substance at d/c from ED?: No Referrals: Estuardo Hunter MD [Primary Care Provider] - 1-2 days
[2021-04-04 23:03] LABS: Basophils % (A) 0 %; Eosinophils % (A) 1 %; HCT 39.1 % (34.0-46.0); HGB 13.1 gm/dL (11.4-16.0); Lymphocytes # (A) 1.8 k/uL (1.0-4.8); Lymphocytes % (A) 20 %; MCH 32.9 pg (25.0-35.0); MCHC 33.6 g/dL (31.0-37.0); MCV 97.9 fL (80.0-100.0); Mean Platelet Volume 8.9; Monocytes # (A) 0.4 k/uL (0-1.0); Monocytes % (A) 5 %; Neutrophils # (A) 6.7 k/uL (1.3-7.7); Neutrophils % (A) 73 %; Platelet Count 232 k/uL (150-450); RBC 3.99 m/uL (3.80-5.40); RDW 13.1 % (11.5-15.5); WBC 9.2 k/uL (3.8-10.6)
[2021-04-04 23:31] LABS: Albumin 4.3 g/dL (3.5-5.0); Calcium 9.3 mg/dL (8.4-10.2); Potassium 4.4 mmol/L (3.5-5.1); Total Bilirubin 0.3 mg/dL (0.2-1.3); Total Protein 6.9 g/dL (6.3-8.2)
--- NOTE | 2021-04-05 00:07 | US ---
EXAMINATION TYPE: US transvaginal DATE OF EXAM: 04/04/2021 COMPARISON: CT, US CLINICAL HISTORY: mass R ovary. Right-sided pain. Hx tubal ligation, D and C, partial hysterectomy , hx cervical cancer, patient has both ovaries. . TECHNIQUE: Transvaginal (TV). Date of LMP: Hysterectomy 2016. EXAM MEASUREMENTS: Right Ovary: 6.7 x 5.4 x 4.5 cm Left Ovary: 3.6 x 2.2 x 1.8 cm 1. Uterus: Surgically absent. 2. Endometrium: - 3. Right Ovary: Appears enlarged. Complex area seen measurin.8 x 4.0 x 3.6 cm. 4. Left Ovary: Subcentimeter anechoic areas seen. Spectral, color and waveform doppler imaging shows arterial and venous flow within the left ovary. Venous flow seen within the right ovary. Arterial flow seen near peripheral right ovary. Difficult to show strong arterial waveform. 5. Bilateral Adnexa: Minimal fluid seen in left adnexa. 6. Posterior cul-de-sac: Fluid seen midline: 1.2 x 0.8 x 1.4 cm. Limited exam due to bowel/gas. IMPRESSION: There is 4 cm rounded mass on the right ovary which appears echogenic. There is very slight posteri or enhancement and this could be large hemorrhagic cyst. Right ovary is enlarged. Solid ovarian tumor not excluded. Follow-up is recommended. No evidence of ovarian torsion.
--- NOTE | 2021-04-05 00:16 | CT ---
EXAMINATION TYPE: CT abdomen pelvis w con DATE OF EXAM: 04/04/2021 COMPARISON: 06/26/2020 HISTORY: pain CT DLP: 543.2 mGycm Automated exposure control for dose reduction was used. CONTRAST: Performed with IV Contrast, patient injected with 80 mL of Isovue 300. Images obtained from the diaphragm to the floor the pelvis with IV contrast. Lung bases are clear. There is no pleural effusion. Heart size is normal. There is no pericardial eff usion. Liver spleen stomach pancreas gallbladder appear normal. The bile ducts are not dilated. There is no adrenal mass. 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 Left kidney shows compensatory hypertrophy. There is no hydronephrosis. Delayed images show normal renal excretion. There are left r enal parapelvic cysts. There is no retroperitoneal adenopathy. Bladder distends smoothly. There is hysterectomy. There is 4 cm rounded low-density mass above the urinary bladder consistent with ovarian cyst. There is no mesenteric edema. There is no ascites or free air. There is no bowel obstruction. There i s apparent contrast-filled appendix. The lumbar vertebra have normal alignment. Posterior elements are intact. There is moderate posterior disc herniation at L4-5 and L5-S1 with some calcification. Disc herniation at L4-5 extends to the le ft side with impingement on the lateral recess. Bony pelvis is intact. The hip joints are intact. IMPRESSION: There is large cyst on the right ovary. This is also present on previous exam and is probably increas ed slightly in size. Normal appendix.
[2021-04-05] MEDS ORDERED: ONDANSETRON 4 MG ODT STARTER PACK 2 TAB BTL PO STA (00:54)
[2021-04-05] MEDS ORDERED: IBUPROFEN 600 MG STARTER PACK 4 TAB BTL PO STA (00:54)
[2021-04-05] MEDS ORDERED: ACET/COD 300 MG/30 MG STARTER PACK 6 TAB BTL PO STA (00:54)
[2021-04-05 01:27] VITALS: BP 119/73; RESP 16; TEMP 97.9
== END 2021-04-05 01:22 | disposition home or self-care (01) ==
LOC: EC 20:41
DX: N83.201 Unspecified ovarian cyst, right side (principal); F17.200 Nicotine dependence, unspecified, uncomplicated; I10 Essential (primary) hypertension; E11.9 Type 2 diabetes mellitus without complications
CPT/HCPCS: 36415; 80053; 82150; 83605; 83690; 85025; 81001; 81025; 93975; 76830; 74177; 99284; 96374; 96375; J2270; J1200; J2405; Q9967

== ENCOUNTER → 2021-07-16 | Outpatient (CLI) | payer MEDICARE, OTHER ==
--- NOTE | 2021-07-17 01:10 | MR ---
EXAMINATION TYPE: MR lumbar spine wo/w con DATE OF EXAM: 07/16/2021 COMPARISON: 09/06/2013 HISTORY: LBP, LLE radiculopathy, hx surgery. CONTRAST: Standard multiplanar, multisequence MRI departmental protocol images were obtained without contrast a nd with 5 mL intravenous Gadavist gadolinium contrast. The lumbar vertebrae have fairly normal alignment. There is some degenerative disc space narrowing at L4-5 and L5-S1. There is posterior moderate disc herniations at L4-5 and L5-S1 in the midline and to wards the left side. There is a relatively adequate spinal canal and no significant spinal stenosis. The neural foramina are fairly well maintained. No compression fracture. No lumbar paraspinal mass. T here is laminectomy defect of L5 on the left side. The contrast images show some epidural enhancement at the surgery site on the left side consistent wi th scarring. IMPRESSION: Previous surgery at L5 on the left side. Moderate posterior disc herniation seen at L4-5 and L5-S1 ce ntrally and towards left side which are new compared to old exam. No significant spinal stenosis. Mil d epidural scarring posteriorly on the left side at L5 level. No significant neural foraminal narrowi ng.
== END | disposition home or self-care (01) ==
LOC: RADMRIMAIN 17:44
PROVIDERS: ATTEND Psychiatry & Neurology Neurology
DX: M51.17 Intervertebral disc disorders with radiculopathy, lumbosacral region (principal)
CPT/HCPCS: 72158; A9585

== ENCOUNTER → 2022-04-18 | Outpatient (CLI) | payer MEDICARE, OTHER ==
--- NOTE | 2022-04-20 11:34 | MR ---
EXAMINATION TYPE: MR lumbar spine wo/w con DATE OF EXAM: 04/18/2022 COMPARISON: 07/16/2021 HISTORY: 36-year-old female M54.17, Drop foot, left side, lower back pain. Hx multiple surgeries. TECHNIQUE: Multiplanar, multisequence images of the lumbar spine were obtained before and after admin istration of 5 mL intravenous Gadavist gadolinium contrast. FINDINGS: Redemonstrated mild degenerative disc disease mid to lower lumbar spine, more moderate at L5-S1 with disc space narrowing. Conus medullaris is normal. No suspicious bone marrow placement. Vertebral body heights are preserved and alignment is maintained. There is hypertrophic facet arthropathy lower lumbar spine particularly towards the left. Tiny posterior annular fissure noted at L3-L4 with minimal diffuse disc bulge, unchanged from prior. From T12 through L4 levels, no significant spinal canal or neuroforaminal stenosis. At L4-L5, there is diffuse disc bulge eccentric towards the left where a tiny annular fissure is pres ent and a tiny disc extrusion with slight inferior migration, similar to prior. Advanced hypertrophic facet arthropathy. No significant spinal canal stenosis. Changes contribute to moderate left and min imal inferior right neural foraminal stenosis. At L5-S1, redemonstrated diffuse disc bulge with superimposed large disc extrusion which has increase d in size in the interval. Extensive annular tear is present here and the extruded material shows sup erior migration posterior to the L5 vertebral body. This is in a central, left paracentral location i njury dating to overall mild central spinal canal narrowing, increased from prior. With facet arthrop athy, changes contribute to slight worsening moderate left neuroforaminal stenosis. Disc material lik macie impinges both the preforaminal left L5 nerve root as well as the traversing left S1 nerve root, s agittal image 6. Previous left L5 laminotomy change. There is some enhancing epidural and perineural granulation tissu e along the preforaminal left L5 nerve root, axial image 6 series 601 and axial image 7 series 901. IMPRESSION: 1. Previous left L5 laminotomy but with interval enlargement of a previously seen large central, left paracentral disc extrusion at L5-S1. Extensive annular tear is present here and disc material shows superior migration. Mild central spinal canal narrowing but no significant canal compromise. 2. There is enhancing epidural granulation tissue along the left lateral recess at this level and als o perineural enhancement extending to involve the preforaminal left L5 nerve root. In addition, the l arge disc herniation impinges the traversing left S1 nerve root. 3. Along with hypertrophic facet arthropathy in the lower lumbar spine, left greater than right, gates ges contribute to a moderate left neuroforaminal stenosis at L4-L5 and worsening moderate left neurof oraminal stenosis at L5-S1.
== END | disposition home or self-care (01) ==
LOC: RADMRIMAIN 11:48
PROVIDERS: ATTEND Orthopaedic Surgery
DX: M51.16 Intervertebral disc disorders with radiculopathy, lumbar region (principal); M47.26 Other spondylosis with radiculopathy, lumbar region; M48.061 Spinal stenosis, lumbar region without neurogenic claudication; M99.73 Connective tissue and disc stenosis of intervertebral foramina of lumbar region; M21.372 Foot drop, left foot
CPT/HCPCS: 72158; A9585

== ENCOUNTER → 2023-05-06 | Outpatient (CLI) | payer MEDICARE, OTHER ==
--- NOTE | 2023-05-06 12:55 | CT ---
EXAMINATION TYPE: CT lumbar spine wo con DATE OF EXAM: 05/06/2023 9:59 AM COMPARISON: 10/23/2017 HISTORY: post spinal fusion CT DLP: [id number] Automated exposure control for dose reduction was used. Unenhanced CT of the lumbar spine was performed. Bone and soft tissue window settings are submitted as well as coronal and sagittal reconstructions. Findings: There are postsurgical changes of anterior and posterior fusion with laminectomy at the L5-S1 level. The lumbar vertebral segments are normal in height and alignment and there is no fracture subluxation There is moderate narrowing of the L4-5 disc indicating moderate degenerative disc disease. Possibility of herniated disc at the L5-S1 level within the right lateral recess is not excluded. Natali luation is limited by metallic artifact. There is no spinal stenosis. The facet joints from L1 throug h L5 are normal. The sacrum and SI joints are normal. The paraspinal soft tissues unremarkable. IMPRESSION: 1. Laminectomy and fusion at the L5-S1 level. 2. Cannot exclude herniated L5-S1 disc to the right of midline compromising the right lateral recess. Evaluation is limited due to metallic artifact. MRI might be useful for further evaluation. 3. Moderate degenerative disease at the L4-5 level as described above. 4. No spinal stenosis.
== END | disposition home or self-care (01) ==
LOC: RADCTMAIN 09:39
PROVIDERS: ATTEND Orthopaedic Surgery
DX: M51.16 Intervertebral disc disorders with radiculopathy, lumbar region (principal); Z98.1 Arthrodesis status
CPT/HCPCS: 72131

== ENCOUNTER → 2024-08-18 | Outpatient (CLI) | payer MEDICARE, OTHER ==
--- NOTE | 2024-08-19 16:09 | US ---
EXAMINATION TYPE: US renals and bladder DATE OF EXAM: 08/18/2024 COMPARISON: CT CLINICAL INDICATION: Female, 38 years old with history of N18.2 CHRONIC KIDNEY DISEASE; CKD TECHNIQUE: Grayscale imaging of the bilateral kidneys and urinary bladder: FINDINGS: EXAM MEASUREMENTS: Left Kidney: 12.7 x 5.9 x 5.4 cm Right Kidney: Not visualized, ?atrophic vs. absent- prior CT ?atrophic Left Kidney: wnl, no evidence of hydro, lower pole gassed out Bladder: wnl Bilateral Jets seen: Left jet visualized Urinary bladder is sonolucent. The posterior wall is normal. IMPRESSION: No suspicious acute ultrasound changes bilateral kidneys [facility], , 08/19/2024 4:06 PM
== END | disposition home or self-care (01) ==
LOC: RADUSWWP 15:07
PROVIDERS: ATTEND Internal Medicine Geriatric Medicine
DX: N18.2 Chronic kidney disease, stage 2 (mild) (principal)
CPT/HCPCS: 76770

== ENCOUNTER → 2024-11-18 | Outpatient (CLI) | payer MEDICARE, OTHER | END | disposition home or self-care (01) | LOC: LABWHC1 12:14 | PROVIDERS: ATTEND Psychiatry & Neurology Neurology | DX: Z01.818 Encounter for other preprocedural examination (principal) | CPT/HCPCS: 93005 ==